=== PATIENT | female | born 2000 | race Caucasian/White ===

== ENCOUNTER 2024-11-19 10:14 | Emergency (ER) | payer OTHER, SELFPAY ==
[2024-11-19 10:19] VITALS: BP 138/92; PULSE 66; RESP 16; TEMP 36.5; O2SAT 100
--- OUTSIDE RECORDS SUMMARY | 2024-11-19 11:05 | XMS_ITS | Encounter Summary ---
Author Organization [facility] Address 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
--- OUTSIDE RECORDS SUMMARY | 2024-11-19 11:05 | XMS_ITS | Encounter Summary ---
Author Organization [facility] Address [address] [place] [address] Care Team Providers Care Attending Physician Name Role Phone Unavailable Primary Care Provider Unavailabl e Encounter Details Date Type Department Care Team (Late st Contact Info) Description 2000 Outpatient Historical [facility] [place] [address] [place] [address] Single liveborn, born in hospital, delivered by delivery (Primary Dx) Social History Tobacco Use Types Packs/Day Years Used Date Smoking Tobacco: Never Assessed Comments Unknown Sex and Gender Information Value Date Recorded Sex Assigned at Not on file Legal Sex Female 3:50 AM HOSPITAL 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
--- OUTSIDE RECORDS SUMMARY | 2024-11-19 11:05 | XMS_ITS | Encounter Summary ---
Author Organization [facility] Address 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
--- OUTSIDE RECORDS SUMMARY | 2024-11-19 11:05 | XMS_ITS | Encounter Summary ---
Author Organization [facility] Address [address] [place] [address] Care Team Providers Care Automation Software Engineer Name Role Phone Jil Solomon DO Primary Care Provider [phone] Encounter Details Date Type Department Care Team (Late st Contact Info) Description 08/30/2017 Ophth Exam [facility] Pediatrics - Ophthalmology [address] [place] [address] Gibran Beyer MD [address] [place] [address] Social History Tobacco Use Types Packs/Day Years Used Date Smoking Tobacco: Never Smokeless Tobacco: Never Alcohol Use Standard Drinks/Week Comments No 0 (1 standard drink = 0.6 oz pur e alcohol) Comments Unknown Sex and Gender Information Value Date Recorded Sex Assigned at Not on file Legal Sex Female 7:12 AM MANAGER PEDIATRIC Gender Identity Not on file Sexual Orientation Not on file documented as of this encounter Plan of Treatment Not on file documented as of this encounter Visit Diagnoses Not on filedocumented in this encounter Care Teams Automation Software Engineer Relationship Specialty Start Date End Date Jil Solomon DO PCP - General Pediatrics 07/14/13 documented as of this encounter
--- OUTSIDE RECORDS SUMMARY | 2024-11-19 11:05 | XMS_ITS | Encounter Summary ---
Author Organization [facility] Address [address] Attn: [place] [address] Care Team Providers Care Space Operations Officer Name Role Phone Unavailable Primary Care Provider Unavailabl e Encounter Details Date Type Department Care Team (Late st Contact Info) Description 2000 [place] [address] [place] [address] Sunil Baker MD NO ADDRESS ON FILE Single liveborn, born in hospital, delivered by delivery (Primary Dx) Social History Tobacco Use Types Packs/Day Years Used Date Smoking Tobacco: Never Assessed Comments Unknown Sex and Gender Information Value Date Recorded Sex Assigned at Not on file Legal Sex Female 3:50 AM 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
--- OUTSIDE RECORDS SUMMARY | 2024-11-19 11:05 | XMS_ITS | Encounter Summary ---
Author Organization [facility] Address [address] [place] [address] Care Team Providers Care Industrial Engineering Technologist Name Role Phone Unavailable Primary Care Provider Unavailabl e Encounter Details Date Type Department Care Team (Late st Contact Info) Description 01/30/2004 Outpatient Historical [facility] Pediatrics - 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
--- OUTSIDE RECORDS SUMMARY | 2024-11-19 11:05 | XMS_ITS | Encounter Summary ---
Author Organization [facility] Address 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
--- OUTSIDE RECORDS SUMMARY | 2024-11-19 11:05 | XMS_ITS | Encounter Summary ---
Author Organization [facility] Address [address] [place] [address] Care Team Providers Care Hydrate Thickener Operator Name Role Phone Unavailable Primary Care Provider Unavailabl e Encounter Details Date Type Department Care Team (Late st Contact Info) Description 2000 Outpatient Historical [facility] Kiersten Schultz MD [address] [place] [address] Routine infant or child health check (Primary Dx) Social History Tobacco Use Types Packs/Day Years Used Date Smoking Tobacco: Never Assessed Comments Unknown Sex and Gender Information Value Date Recorded Sex Assigned at Not on file 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
--- OUTSIDE RECORDS SUMMARY | 2024-11-19 11:05 | XMS_ITS | Encounter Summary ---
Author Organization [facility] Address 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
--- OUTSIDE RECORDS SUMMARY | 2024-11-19 11:05 | XMS_ITS | Encounter Summary ---
Author Organization [facility] Address [address] [place] [address] Care Team Providers Care Manager Voice Name Role Phone Unavailable Primary Care Provider Unavailabl e Encounter Details Date Type Department Care Team (Late st Contact Info) Description 03/21/2003 Outpatient Historical [facility] Pediatrics - [facility] [address] [address] Chip Morrison MD NO ADDRESS ON FILE Social History Tobacco Use Types Packs/Day Years Used Date Smoking Tobacco: Never Assessed Comments Unknown Sex and Gender Information Value Date Recorded Sex Assigned at Not on file Legal Sex Female 3:50 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
--- OUTSIDE RECORDS SUMMARY | 2024-11-19 11:05 | XMS_ITS | Encounter Summary ---
Author Organization [facility] Address 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
--- OUTSIDE RECORDS SUMMARY | 2024-11-19 11:05 | XMS_ITS | Encounter Summary ---
Author Organization [facility] Address 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
--- OUTSIDE RECORDS SUMMARY | 2024-11-19 11:05 | XMS_ITS | Clinical Summary ---
Author Organization [facility] Address [facility] [place] [address] Care Team Providers Care Tariff Expert Name Role Phone Unavailable Primary Care Provider Unavailabl e Social History Tobacco Use Types Packs/Day Years Used Date Smoking Tobacco: Never Assessed Comments Unknown Sex and Gender Information Value Date Recorded Sex Assigned at Not on file Legal Sex Female 5:08 PM CDT Gender Identity Not on file Sexual Orientation Not on file Plan of Treatment Health Maintenance Due Date Last Done Comments Cervical Cancer Screening Pa p Smear (Age 21 to 29) Every 3 Years 2000 Cervical Cancer Screening 2000 Annual Physical 2003 HPV Vaccines (1 - 3-dose series) 2015 Hepatitis C 2018 DTaP, Tdap and Td Vaccines ( 1 - Tdap) 2019 Hepatitis B Vaccines (1 of 3 - 19+ 3-dose series) 2019 COVID-19 Vaccine (2023-2 5 season) 2024 Meningococcal B Vaccine Aged Out No l onger eligible based on patient's age to complete this topic Meningococcal Vaccine Aged Out No radhika allen eligible based on patient's age to complete this topic Pneumococcal Vaccine: Pediat rics (0 to 5 Years) and At-Risk Patients (6 to 49 Years) Aged Out No longer eligible b ased on patient's age to complete this topic RSV Immunizations Under 20 Months Aged Out No longer eligible based on patient's age to complete this topic
--- OUTSIDE RECORDS SUMMARY | 2024-11-19 11:05 | XMS_ITS | Clinical Summary ---
Author Organization [facility] Address [address] [place] [address] Care Team Providers Care Building Serviceman Name Role Phone Unavailable Primary Care Provider Unavailabl e Social History Tobacco Use Types Packs/Day Years Used Date Smoking Tobacco: Never Assessed Comments Unknown Sex and Gender Information Value Date Recorded Sex Assigned at Not on file Legal Sex Female 2:07 PM NURSE SITTER Gender Identity Not on file Sexual Orientation Not on file Plan of Treatment Health Maintenance Due Date Last Done Comments Hepatitis C Virus (HCV) Screening 2000 Pap Smear 2021 Influenza Immunization (#1) 03/17/202401/2013, 04/20/2010, 05/22/2008 SARS-COV-2 Immunization ( season) 2024 Respiratory Syncytial Virus (RSV) Immunization (Adult) (1 - 1-dose 75+ series) 2075 Hepatitis B Immunization Completed 001, 2000, 2000 Pneumococcal Immunization Combined Completed 10/30/2001, 05/23/2001, 2000, Additional history exists DTaP/Tdap/Td Immunization Discontinued 2011, 06/10/2005, 08/29/2001, Additional history exists TdaP Immunization Completed 02/15/2012 Human Papillomavirus (HPV) Immunization Completed 05/23/2013, 03/13/2013, 02/15/2012 Meningococcal B Immunization Discontinued 09/06/2017 Meningococcal Immunization (ACWY) Completed 09/06/2017, 09/06/2017, 02/15/2012 Rotavirus Immunization Aged Out No lo nger eligible based on patient's age to complete this topic
--- OUTSIDE RECORDS SUMMARY | 2024-11-19 11:05 | XMS_ITS | Clinical Summary ---
Author Organization [facility] Address [address] [place] [address] Phone Care Team Providers Care Tanker Driver Name Role Phone Unavailable Primary Care Provider Unavailabl e Allergies No known active allergies Medications No known medications Social History Tobacco Use Types Packs/Day Years Used Date Smoking Tobacco: Never Smokeless Tobacco: Never Alcohol Use Standard Drinks/Week Comments No 0 (1 standard drink = 0.6 oz pur e alcohol) Comments No Sex and Gender Information Value Date Recorded Sex Assigned at Not on file Legal Sex Female 3:50 AM PULP GRINDER AND BLENDER Gender Identity Not on file Sexual Orientation Not on file Last Filed Vital Signs Vital Sign Reading Time Taken Comments Blood Pressure 101/59 06/14/2018 5:14 PM PULP GRINDER AND BLENDER Pulse - - Temperature 36.9 C (98.4 F) 06/14/2018 5:14 PM PULP GRINDER AND BLENDER Respiratory Rate 16 06/14/2018 5:14 PM PULP GRINDER AND BLENDER Oxygen Saturation 97% 06/14/2018 5:14 PM PULP GRINDER AND BLENDER Inhaled Oxygen Concentration - - Weight 74.8 kg (165 lb) 06/14/2018 1:28 PM PULP GRINDER AND BLENDER Height 157.5 cm (5' 2 ) 06/14/2018 1:28 PM PULP GRINDER AND BLENDER Body Mass Index 30.18 06/14/2018 1:28 PM PULP GRINDER AND BLENDER Plan of Treatment Health Maintenance Due Date Last Done Comments HPV VACCINES (1 - 3-dose series) 2015 DTAP/TDAP/TD VACCINES (1 - Tdap) 2019 HEPATITIS B VACCINES (1 of 3 - 19+ 3-dose series) 12/2018 CERVICAL CANCER SCREENING 2021 HPV/Cotest (21-29) 2021 PAP SMEAR 2021 INFLUENZA VACCINE (#1) 2024
--- OUTSIDE RECORDS SUMMARY | 2024-11-19 11:05 | XMS_ITS | Encounter Summary ---
Author Organization [facility] Address 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
--- OUTSIDE RECORDS SUMMARY | 2024-11-19 11:05 | XMS_ITS | Encounter Summary ---
Author Organization [facility] Address 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
--- OUTSIDE RECORDS SUMMARY | 2024-11-19 11:05 | XMS_ITS | Clinical Summary ---
Author Organization [facility] Address [address] [place] [address] Care Team Providers Care Rn Interventional Name Role Phone JuanitoJil Cee JACOB Primary Care Provider [phone] [facility],non-owned Affiliates and Associated Physician Practices is amultiple site organization consisting of ambulatory clinics and hospital sitesin [place], [place], [place] and [place]. This disclosure is being madepursuant to the Care Everywhere program and may not contain all information available regarding this patient. Last updated 18.[facility] iRewardChart Allergies No known active allergies Medications * Be aware that medications may not be up to date on this document. Alwaysverify current medications with the patient. ibuprofen (MOTRIN) 200 MG tablet Take 3 Tabs by mouth every 6 hours as needed for Pain or Fever 30 Tab 0 5 Active Additional Information Patient not taking.Reported on 12/07/2017 cetirizine (ZYRTEC) 10 MG tablet Take 1 Tab by mouth once daily 30 Tab 7 Active albuterol (PROVENTIL;VENT ANIYAH) (5 MG/ML) 0.5% nebulizer solution Inhale 1 mL by mouth 4 times daily as needed for Shortness of Breath or Wheezing 1 bottles 2 7 Active sertraline (ZOLOFT) 100 MG tablet Take 100 mg by mouth once daily Active hydrocortisone (HYTONE) 1 % ointment Apply to affected area 2 times daily as needed (eczema) . Do not use for longer than 5 days at a time. 25 g 8 Active triamcinolone acetonide (KENALOG) 0.1 % ointment Apply to affected area 3 times daily as needed for Itching (eczema) 15 g 8 Active albuterol HFA (PROAIR HFA) 108 (90 BASE) MCG/ACT inhaler Inhale 2 puffs by mouth every 4 hours as needed for Shortness of Breath, Wheezing or Cough 1 Inhaler 8 Active Active Problems Problem Noted Date Diagnosed Date Pelvic pain in female 12/07/2017 Acute appendicitis 12/07/2017 Social History Tobacco Use Types Packs/Day Years Used Date Smoking Tobacco: Never Smokeless Tobacco: Never Alcohol Use Standard Drinks/Week Comments No 0 (1 standard drink = 0.6 oz pur e alcohol) Comments No Sex and Gender Information Value Date Recorded Sex Assigned at Not on file Legal Sex Female 7:12 AM SYBASE DEVELOPER Gender Identity Not on file Sexual Orientation Not on file Last Filed Vital Signs Vital Sign Reading Time Taken Comments Blood Pressure 108/70 12/09/2017 8:15 AM CDT Pulse 60 12/09/2017 8:15 AM CDT Temperature 36.8 C (98.2 F) 12/09/2017 8:15 AM CDT Respiratory Rate 18 12/09/2017 8:43 AM CDT Oxygen Saturation 93% 12/09/2017 4:56 AM CDT Inhaled Oxygen Concentration 21% 12/09/2017 8 :43 AM CDT Weight 79.1 kg (174 lb 6.1 oz) 12/07/2017 9:10 P M CDT Height 159.4 cm (5' 2.76 ) 12/07/2017 9:10 PM CD T Body Mass Index 31.13 12/07/2017 9:10 PM CDT Plan of Treatment Health Maintenance Due Date Last Done Comments HIV SCREENING 2015 HPV VACCINE (1 - 3-dose series) 2015 HEPATITIS C SCREENING 04/17/2018 CHLAMYDIA/GONORRHEA SCREENING 12/07/2018 12/07/2017 DTAP/TDAP/TD VACCINES (1 - Tdap) 2019 HEPATITIS B VACCINE (1 of 3 - 19+ 3-dose series) 2019 COVID-19 VACCINE (1 - 2024-2 5 season) 2024 DEPRESSION SCREENING 07/17/2024 INFLUENZA VACCINE (Season Ended) 2025 ZOSTER VACCINE (1 of 2) 2050 HIB VACCINE Aged Out No longer eligi ble based on patient's age to complete this topic MENINGOCOCCAL (Group B) VACC INE SHARED DECISION-MAKING Aged Out No longer eligibl e based on patient's age to complete this topic MENINGOCOCCAL GROUPS A/C/Y/W VACCINE Aged Out No longer eligible b ased on patient's age to complete this topic PNEUMOCOCCAL VACCINE Aged Out No long er eligible based on patient's age to complete this topic Procedures Procedure Name Priority Date/Time Associated Diagnosis Comments CHLAMYDIA + GC AMPLIFIED PROBE STAT 12/07/2017 2:47 PM CDT from Last 3 Months or Most Recently Relevant to Health Maintenance Results * CHLAMYDIA + GC AMPLIFIED PROBE (12/07/2017 2:47 PM CDT) Chlamydia Amplified Probe Negative Negative 12/08/2017 9:43 AM CDT [facility] GC Amplified Probe Negative Negative 12/08/2017 9:43 AM CDT [facility] Microbiology ENTIRE ENDOCERVIX / Unknown Collection / Unknown 12/07/2017 2:47 PM CDT 12/07/2017 5:07 PM CDT Narrative [facility] - 12/08/2017 9:43 AM CDT Results based on detection/no detection of ribosomal RNA by amplified method. Johnny Broderick MD LAB - MICROBIOLOGY ORDERABLES Final Result [facility] [address] [place] [address], [facility] [phone] from Last 3 Months or Most Recently Relevant to Health Maintenance Insurance MEDICAID - OUT OF STATE [place] [facility] Advance Directives * Full Code (Latest Code Status on File) Date Activated Date Inactivated Comments 12/07/2017 8:46 PM 12/09/2017 12:54 PM Care Teams Rn Interventional Relationship Specialty Start Date End Date Jil Solomon DO PCP - General Pediatrics 07/14/13
--- OUTSIDE RECORDS SUMMARY | 2024-11-19 11:05 | XMS_ITS | Encounter Summary ---
Author Organization [facility] Address [address] [place] [address] Care Team Providers Care Strap Setter Name Role Phone Unavailable Primary Care Provider Unavailabl e Encounter Details Date Type Department Care Team (Late st Contact Info) Description 09/18/2001 Outpatient Historical [facility] - Medical [place] [address] [address] Chip Morrison MD NO ADDRESS ON FILE Social History Tobacco Use Types Packs/Day Years Used Date Smoking Tobacco: Never Assessed Comments Unknown Sex and Gender Information Value Date Recorded Sex Assigned at Not on file Legal Sex Female 3:50 AM RADIO JOURNALIST Gender Identity Not on file Sexual Orientation Not on file documented as of this encounter Plan of Treatment Not on file documented as of this encounter Visit Diagnoses Not on filedocumented in this encounter
[2024-11-19 11:18] LABS: BEDSIDEPREGUCG Positive (Negative)
[2024-11-19 11:33] LABS: Basophils Absolute Auto 0.1 K/mm3 (0.0-0.1); Basophils Percent Auto 0.4 % (0.2-1.2); Eosinophils Absolute Auto 0.1 K/mm3 (0-0.3); Eosinophils Percent Auto 1.1 % (0-4.4); Hematocrit 41.6 % (37.0-47.0); Hemoglobin 14.1 g/dL (12.0-15.0); Immature Granulocyte Absolute 0.06 K/mm3 (0.00-0.031); Immature Granulocyte Percent A 0.5 % (0-0.5); Lymphocytes Absolute Auto 2.45 K/mm3 (0.9-3.2); Lymphocytes Percent Auto 18.7 % (18.3-44.2); Mean Corpuscular HGB Conc 33.9 g/dl (32-36); Mean Corpuscular Hemoglobin 28.6 pg (26-34); Mean Corpuscular Volume 84.4 fl (80-100); Mean Platelet Volume 11.3 fl (7.4-10.4); Monocytes Absolute Auto 0.7 K/mm3 (0.1-0.6); Monocytes Percent Auto 5.6 % (2.6-8.5); Neutrophils Absolute Auto 9.7 K/mm3 (1.3-6.7); Neutrophils Percent Auto 73.7 % (45.5-73.1); Platelet Count Result 274 k/mm3 (150-375); Red Blood Count 4.93 M/mm3 (4.2-5.4); Red Cell Distribution Width 12.9 % (11.5-14.5); White Blood Count 13.1 K/mm3 (4.5-10.0)
[2024-11-19 11:34] LABS: Add Urine Microscopic? YES; Appearance Urine Cloudy (Clear); Bacteria Urine None Seen /hpf; Bilirubin Urine Negative (Negative); Blood Urine Negative (Negative); Color Urine Yellow (Yellow); Glucose Urine UA Negative (Negative); Ketones Urine 4+ mg/dL (Negative); Leukocyte Esterase Ur Negative LEU/UL (Negative); Nitrate Urine Negative (Negative); Non Pathogenic Casts 0-2; Protein Urine Trace mg/dL (Negative); RBC Urine 0-2 /hpf (0-2); Specific Grav Ur 1.024 (1.001-1.035); Squamous Epithelial Cell Urine None Seen /hpf (Few); WBC Urine 0-5 /hpf (0-3); pH Urine >=9.0 (5.0-9.0)
[2024-11-19 12:21] LABS: Alanine Aminotransferase 74 U/L (6-35); Albumin Level 4.7 g/dL (3.5-5.1); Alkaline Phosphatase 83 U/L (38-126); Anion Gap 11 mmol/L (4-12); Aspartate Amino Transferase 39 U/L (14-36); Bilirubin,Total 0.7 mg/dL (0.2-1.3); Blood Urea Nitrogen 6 mg/dL (7-17); Calcium 9.7 mg/dL (8.4-10.2); Carbon Dioxide 22 mmol/L (22-30); Chloride 103 mmol/L (98-107); Estimated CRCL calculation 148 ml/min; Estimated Glomerular Filt Rate > 60; Glucose 98 mg/dL (65-110); Lipase 69 U/L (23-300); Potassium 3.7 mmol/L (3.4-5.0); Sodium 136 mmol/L (137-145)
[2024-11-19] MEDS: LACTATED RINGERS 1,000 ML 999 ML IV CONT (12:27)
--- OUTSIDE RECORDS SUMMARY | 2024-11-19 12:38 | XMS_ITS | Clinical Summary ---
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
--- OUTSIDE RECORDS SUMMARY | 2024-11-19 12:38 | XMS_ITS | Encounter Summary ---
Author Organization [facility] Address [address] [place] [address] Care Team Providers Care Graphotype Operator Name Role Phone Unavailable Primary Care Provider Unavailabl e Encounter Details Date Type Department Care Team (Late st Contact Info) Description 2000 Outpatient Historical [facility] Kiersten Schultz MD [address] [place] [address] Routine infant or child health check (Primary Dx) Social History Tobacco Use Types Packs/Day Years Used Date Smoking Tobacco: Never Assessed Comments Unknown Sex and Gender Information Value Date Recorded Sex Assigned at Not on file Legal Sex Female 3:50 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
--- OUTSIDE RECORDS SUMMARY | 2024-11-19 12:38 | XMS_ITS | Encounter Summary ---
Author Organization [facility] Address [address] [place] [address] Care Team Providers Care Licensing Director Name Role Phone Jil Solomon DO Primary Care Provider [phone] Encounter Details Date Type Department Care Team (Late st Contact Info) Description 08/30/2017 Ophth Exam [facility] Pediatrics - Ophthalmology [address] [place] [address] Gibran Beyer MD [address] [place] [address] Social History Tobacco Use Types Packs/Day Years Used Date Smoking Tobacco: Never Smokeless Tobacco: Never Alcohol Use Standard Drinks/Week Comments No 0 (1 standard drink = 0.6 oz pur e alcohol) Comments Unknown Sex and Gender Information Value Date Recorded Sex Assigned at Not on file Legal Sex Female 7:12 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
--- OUTSIDE RECORDS SUMMARY | 2024-11-19 12:38 | XMS_ITS | Clinical Summary ---
Author Organization [facility] Address [address] [place] [address] Care Team Providers Care Ict Project Manager Name Role Phone JuanitoJil Cee JACOB Primary Care Provider [phone] Source Comments [facility],non-owned Affiliates and Associated Physician Practices is amultiple site organization consisting of ambulatory clinics and hospital sitesin [place], [place], [place] and [place]. This disclosure is being madepursuant to the Care Everywhere program and may not contain all information available regarding this patient. Last updated 18.[facility] Microarrays Allergies No known active allergies Medications * [...] on file Legal Sex Female 7:12 AM OPERATIONS GENERAL AGENT Gender Identity Not on file Sexual Orientation [...] Probe Negative Negative 12/08/2017 9:43 AM CDT [facility] GC Amplified Probe Negative Negative 12/08/2017 9:43 AM CDT [facility] Microbiology ENTIRE ENDOCERVIX / Unknown Collection / Unknown 12/07/2017 2:47 PM CDT 12/07/2017 5:07 PM CDT Narrative [facility] - 12/08/2017 9:43 AM CDT Results based on detection/no detection of ribosomal RNA by amplified method. Johnny Broderick MD LAB - MICROBIOLOGY ORDERABLES Final Result [facility] [address] [place] [address], [facility] [phone] from Last 3 Months or Most Recently Relevant to Health Maintenance Insurance MEDICAID - OUT OF STATE [place] [facility] Advance Directives * Full Code (Latest Code Status on File) Date Activated Date Inactivated Comments 12/07/2017 8:46 PM 12/09/2017 12:54 PM Care Teams Ict Project Manager Relationship Specialty Start Date End Date Jil Solomon DO PCP - General Pediatrics 07/14/13
--- OUTSIDE RECORDS SUMMARY | 2024-11-19 12:38 | XMS_ITS | Encounter Summary ---
Author Organization [facility] Address [address] [place] [address] Care Team Providers Care Bulk Plant Operator Name Role Phone Unavailable Primary Care Provider Unavailabl e Encounter Details Date Type Department Care Team (Late st Contact Info) Description 2000 Outpatient Historical [facility] [place] [address] [place] [address] Diaper or napkin rash (Primary Dx) Social History Tobacco Use Types Packs/Day Years Used Date Smoking Tobacco: Never Assessed Comments Unknown Sex and Gender Information Value Date Recorded Sex Assigned at Not on file Legal Sex Female 3:50 AM PUBLIC HEALTH TECHNOLOGIST Gender Identity Not on file Sexual Orientation Not on file documented as of this encounter Plan of Treatment Not on file documented as of this encounter Visit Diagnoses Diagnosis Diaper or napkin rash- Primary documented in this encounter
--- OUTSIDE RECORDS SUMMARY | 2024-11-19 12:38 | XMS_ITS | Encounter Summary ---
Author Organization [facility] Address [address] [place] [address] Care Team Providers Care Powder Cutting Operator Name Role Phone Unavailable Primary Care Provider Unavailabl e Encounter Details Date Type Department Care Team (Late st Contact Info) Description 03/21/2003 Outpatient Historical [facility] Pediatrics - [facility] [address] [address] [address] Chip Morrison MD NO ADDRESS ON FILE Social History Tobacco Use Types Packs/Day Years Used Date Smoking Tobacco: Never Assessed Comments Unknown Sex and Gender Information Value Date Recorded Sex Assigned at Not on file Legal Sex Female 3:50 AM GAMING WORKER Gender Identity Not on file Sexual Orientation Not on file documented as of this encounter Plan of Treatment Not on file documented as of this encounter Visit Diagnoses Not on filedocumented in this encounter
--- OUTSIDE RECORDS SUMMARY | 2024-11-19 12:38 | XMS_ITS | Encounter Summary ---
Author Organization [facility] Address [address] Attn: [place] [address] Care Team Providers Care Information Security Name Role Phone Unavailable Primary Care Provider Unavailabl e Encounter Details Date Type Department Care Team (Late st Contact Info) Description 2000 [place] [address] [place] [address] Sunil Baker MD NO ADDRESS ON FILE Single liveborn, born in hospital, delivered by delivery (Primary Dx) Social History Tobacco Use Types Packs/Day Years Used Date Smoking Tobacco: Never Assessed Comments Unknown Sex and Gender Information Value Date Recorded Sex Assigned at Not on file Legal Sex Female 3:50 AM LABOR GANG SUPERVISOR Gender Identity Not on file Sexual Orientation Not on file documented as of this encounter Plan of Treatment Not on file documented as of this encounter Visit Diagnoses Diagnosis Single liveborn, born in hospital, delivered by delivery- Primary documented in this encounter
--- OUTSIDE RECORDS SUMMARY | 2024-11-19 12:38 | XMS_ITS | Encounter Summary ---
Author Organization [facility] Address [address] [place] [address] Care Team Providers Care Student Accounts Coordinator Name Role Phone Unavailable Primary Care Provider Unavailabl e Encounter Details Date Type Department Care Team (Latest Contact Info) Description 03/21/2003 Outpatient Historical [facility] GLENDY Morrison, Chip Gutierrez MD NO ADDRESS ON FILE ROUTIN CHILD HEALTH EXAM (Primary Dx) Social History Tobacco Use Types Packs/Day Years Used Date Smoking Tobacco: Never Assessed Comments Unknown Sex and Gender Information Value Date Recorded Sex Assigned at Not on file Legal Sex Female 3:50 AM RETURNING OFFICER Gender Identity Not on file Sexual Orientation Not on file documented as of this encounter Plan of Treatment Not on file documented as of this encounter Visit Diagnoses Diagnosis Routine infant or child health check- Primary documented in this encounter
--- OUTSIDE RECORDS SUMMARY | 2024-11-19 12:38 | XMS_ITS | Encounter Summary ---
Author Organization [email or web address] Address [address] [place] [address] Care Team Providers Care Parking Enforcement Officer Name Role Phone Unavailable Primary Care Provider Unavailabl e Encounter Details Date Type Department Care Team (Latest Contact Info) Description 2000 Outpatient Historical [facility] [place] [address] [place] [address] Need for prophylactic vaccination and inoculation against other combinations of diseases (Primary Dx) Social History Tobacco Use Types Packs/Day Years Used Date Smoking Tobacco: Never Assessed Comments Unknown Sex and Gender Information Value Date Recorded Sex Assigned at Not on file Legal Sex Female 3:50 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
--- OUTSIDE RECORDS SUMMARY | 2024-11-19 12:38 | XMS_ITS | Encounter Summary ---
Author Organization [facility] Address 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
--- OUTSIDE RECORDS SUMMARY | 2024-11-19 12:38 | XMS_ITS | Encounter Summary ---
Author Organization [facility] Address [address] [place] [address] Care Team Providers Care Cotton Opener Name Role Phone Unavailable Primary Care Provider Unavailabl e Encounter Details Date Type Department Care Team (Late st Contact Info) Description 09/18/2001 Outpatient Historical [facility] Pediatrics - Medical [place] [address] [address] Chip Morrison MD NO ADDRESS ON FILE Social History Tobacco Use Types Packs/Day Years Used Date Smoking Tobacco: Never Assessed Comments Unknown Sex and Gender Information Value Date Recorded Sex Assigned at Not on file Legal Sex Female 3:50 AM COIL WINDER Gender Identity Not on file Sexual Orientation Not on file documented as of this encounter Plan of Treatment Not on file documented as of this encounter Visit Diagnoses Not on filedocumented in this encounter
--- OUTSIDE RECORDS SUMMARY | 2024-11-19 12:38 | XMS_ITS | Encounter Summary ---
Author Organization [facility] Address [address] [place] [address] Care Team Providers Care Pipe Line Repairer Name Role Phone Unavailable Primary Care Provider Unavailabl e Encounter Details Date Type Department Care Team (Late st Contact Info) Description 2000 Outpatient Historical [facility] Kiersten Schultz MD [address] [place] [address] Social History Tobacco Use Types Packs/Day Years Used Date Smoking Tobacco: Never Assessed Comments Unknown Sex and Gender Information Value Date Recorded Sex Assigned at Not on file Legal Sex Female 3:50 AM STOCKING INSPECTOR Gender Identity Not on file Sexual Orientation Not on file documented as of this encounter Plan of Treatment Not on file documented as of this encounter Visit Diagnoses Not on filedocumented in this encounter
--- OUTSIDE RECORDS SUMMARY | 2024-11-19 12:38 | XMS_ITS | Encounter Summary ---
Author Organization [facility] Address [address] [place] [address] Care Team Providers Care Film Coater Name Role Phone Unavailable Primary Care Provider Unavailabl e Encounter Details Date Type Department Care Team (Late st Contact Info) Description 10/30/2001 Outpatient Historical [facility] Pediatrics - Medical [place] [address] [address] Chip Morrison MD NO ADDRESS ON FILE Social History Tobacco Use Types Packs/Day Years Used Date Smoking Tobacco: Never Assessed Comments Unknown Sex and Gender Information Value Date Recorded Sex Assigned at Not on file Legal Sex Female 3:50 AM DISC PAD KNOCKOUT WORKER Gender Identity Not on file Sexual Orientation Not on file documented as of this encounter Plan of Treatment Not on file documented as of this encounter Visit Diagnoses Not on filedocumented in this encounter
--- OUTSIDE RECORDS SUMMARY | 2024-11-19 12:38 | XMS_ITS | Encounter Summary ---
Author Organization [email or web address] Address [address] [place] [address] Care Team Providers Care Zoning Administrator Name Role Phone Unavailable Primary Care Provider Unavailabl e Encounter Details Date Type Department Care Team (Latest Contact Info) Description 01/30/2004 Outpatient Historical [facility], [address] Chip Morrison MD NO ADDRESS ON FILE URIN TRACT INFECTION NOS (Primary Dx) Social History Tobacco Use Types Packs/Day Years Used Date Smoking Tobacco: Never Assessed Comments Unknown Sex and Gender Information Value Date Recorded Sex Assigned at Not on file Legal Sex Female 3:50 AM SUPERVISOR WHEEL SHOP Gender Identity Not on file Sexual Orientation Not on file documented as of this encounter Plan of Treatment Not on file documented as of this encounter Visit Diagnoses Diagnosis Urinary tract infection, site not specified- Primary documented in this encounter
--- OUTSIDE RECORDS SUMMARY | 2024-11-19 12:38 | XMS_ITS | Clinical Summary ---
Author Organization [facility] Address [address] [place] [address] Phone Care Team Providers Care Installation Specialist Name Role Phone Unavailable Primary Care Provider [...] on file Legal Sex Female 3:50 AM CONTACT LENS MANUFACTURER Gender Identity Not on file Sexual Orientation Not on file Last Filed Vital Signs Vital Sign Reading Time Taken Comments Blood Pressure 101/59 06/14/2018 5:14 PM CONTACT LENS MANUFACTURER Pulse - - Temperature 36.9 C (98.4 F) 06/14/2018 5:14 PM CONTACT LENS MANUFACTURER Respiratory Rate 16 06/14/2018 5:14 PM CONTACT LENS MANUFACTURER Oxygen Saturation 97% 06/14/2018 5:14 PM CONTACT LENS MANUFACTURER Inhaled Oxygen Concentration - - Weight 74.8 kg (165 lb) 06/14/2018 1:28 PM CONTACT LENS MANUFACTURER Height 157.5 cm (5' 2 ) 06/14/2018 1:28 PM CONTACT LENS MANUFACTURER Body Mass Index 30.18 06/14/2018 1:28 PM CONTACT LENS MANUFACTURER Plan of Treatment Health Maintenance Due Date Last Done Comments HPV VACCINES (1 - 3-dose series) 2015 DTAP/TDAP/TD VACCINES (1 - Tdap) 2019 HEPATITIS B VACCINES (1 of 3 - 19+ 3-dose series) 12/2018 CERVICAL CANCER SCREENING 2021 HPV/Cotest (21-29) 2021 PAP SMEAR 2021 INFLUENZA VACCINE (#1) 2024
--- OUTSIDE RECORDS SUMMARY | 2024-11-19 12:38 | XMS_ITS | Encounter Summary ---
Author Organization [facility] Address 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
--- OUTSIDE RECORDS SUMMARY | 2024-11-19 12:38 | XMS_ITS | Clinical Summary ---
Author Organization [facility] Address [address] [place] [address] Care Team Providers Care Dental Assistant Teacher Name Role Phone Unavailable Primary Care Provider [...]
--- OUTSIDE RECORDS SUMMARY | 2024-11-19 12:38 | XMS_ITS | Encounter Summary ---
Author Organization [facility] Address [address] [place] [address] Care Team Providers Care Senior Software Test Engineer Name Role Phone Unavailable Primary Care Provider Unavailabl e Encounter Details Date Type Department Care Team (Late st Contact Info) Description 01/30/2004 Outpatient Historical [facility] Pediatrics - [facility] [address] [address] Chip Morrison MD NO ADDRESS ON FILE Social History Tobacco Use Types Packs/Day Years Used Date Smoking Tobacco: Never Assessed Comments Unknown Sex and Gender Information Value Date Recorded Sex Assigned at Not on file Legal Sex Female 3:50 AM LAWN CARETAKER Gender Identity Not on file Sexual Orientation Not on file documented as of this encounter Plan of Treatment Not on file documented as of this encounter Visit Diagnoses Not on filedocumented in this encounter
--- OUTSIDE RECORDS SUMMARY | 2024-11-19 12:38 | XMS_ITS | Encounter Summary ---
Author Organization [facility] Address [address] [place] [address] Care Team Providers Care Applied Exercise Physiologist Name Role Phone Unavailable Primary Care Provider Unavailabl e Encounter Details Date Type Department Care Team (Late st Contact Info) Description 2000 Outpatient Historical [facility] [address] [place] [address] Single liveborn, born in hospital, delivered by delivery (Primary Dx) Social History Tobacco Use Types Packs/Day Years Used Date Smoking Tobacco: Never Assessed Comments Unknown Sex and Gender Information Value Date Recorded Sex Assigned at Not on file Legal Sex Female 3:50 AM HEALTH CARE SANITARY TECHNICIAN Gender Identity Not on file Sexual Orientation Not on file documented as of this encounter Plan of Treatment Not on file documented as of this encounter Visit Diagnoses Diagnosis Single liveborn, born in hospital, delivered by delivery- Primary documented in this encounter
--- NOTE | 2024-11-19 12:41 | ED_ITS ---
HPI - Nausea/Vomiting/Diarrhea General Chief complaint: Nausea/Vomiting/Diarrhea Stated complaint: N/V positive preg Time Seen by Provider: 11/19/24 11:57 Source: patient Mode of arrival: ambulatory Limitations: no limitations History of Present Illness HPI Narrative: This is a 24-year-old female, with no significant past medical history, , last menstrual period October 05 2024, who presents emergency department complaining of nausea and vomiting for the past week. She states she has been unable to keep anything down including water for the past 24 hours. She denies bleeding, abdominal pain, fevers or other associated symptoms. She denies vaginal bleeding or abnormal discharge throat does complain of increased urinary frequency. She has no other complaints at this time. Related Data Allergies Allergy/AdvReac Type Severity Reaction Status Date / Time No Known Allergies Allergy Verified 11/19/24 10:17 Review of Systems 2 Review of Systems: All systems reviewed & are unremarkable except as noted in HPI and below PMFSH Past Medical History Medical History No significant past medical history Surgical History Surgical History No significant past surgical history Social History Social History Smoking status: Former smoker Alcohol intake: former Substance use: former Substance use type: marijuana Exam 2 Narrative: GENERAL: Well-developed, well-nourished, and in no acute distress. HEAD: Normocephalic, atraumatic. EYES: PERRLA and EOMI. CHEST: Clear to auscultation. No respiratory distress. No wheezes rales or rhonchi HEART: Regular rate and rhythm. No murmur heard. Normal peripheral pulses. ABDOMEN: Soft, nontender, nondistended, normal active bowel sounds. No CVA tenderness to palpation EXTREMITIES: Normal range of motion. No edema. SKIN: Warm, dry, no rash. NEURO: Alert and oriented x3. No focal deficit. Moving all 4 limbs spontaneously PSYCH: Normal mood and affect. Course Course Emergency Course: 12:35 - Bedside ultrasound by me shows a single intrauterine . There appears to be cardiac activity, where I am unable to quantify it. CBC demonstrates white blood cell count elevation of 13 but is otherwise unremarkable. Chemistries demonstrate mild AST/ALT elevation of 39 and 74 respectively but is otherwise unremarkable. Beta hCG 29,797. Urinalysis demonstrates elevated pH of 9, consistent with urinary tract infection. Urine ketones 4+. Patient is O positive antibody screen negative. Will give nausea medications, IV fluids, including dextrose and repeat UA to evaluate ketones. 14:57 - After IV fluids, IV Benadryl and D5 half NS, the patient states she feels improved. She was able tolerate p.o. intake. Will discharge with antiemetics and Keflex for UTI. I advised the patient follow-up with her OB as scheduled and primary care doctor. I discussed the findings and recommendations with the patient. Discussed return and emergency precautions including signs/symptoms of acute abdomen and intractable vomiting. The patient voiced understanding and agreement with the plan. All questions answered to her satisfaction. Vital Signs Vital signs: Vital Signs Temperature 97.7 F 11/19/24 10:19 Pulse Rate 66 11/19/24 10:19 Respiratory Rate 16 11/19/24 10:19 Blood Pressure 138/92 H 11/19/24 10:19 Pulse Oximetry 100 11/19/24 10:19 Oxygen Delivery Room Air 11/19/24 10:19 Temperature 97.7 F 11/19/24 10:19 Pulse Rate 66 11/19/24 10:19 Respiratory Rate 16 11/19/24 10:19 Blood Pressure 138/92 H 11/19/24 10:19 Pulse Oximetry 100 11/19/24 10:19 Oxygen Delivery Room Air 11/19/24 10:19 MDM - Nausea/Vomiting/Diarrhea MDM Narrative Medical decision making narrative: Plan: Labs, IV fluids, antiemetics, test, reassess Differential Diagnosis Differential diagnosis: Likely dehydration and other (UTI, hyperemesis gravidarum, metabolic abnormality, other) Lab Data 11/19/24 11:13 11/19/24 11:13 Labs: Lab Results 11/19/24 11/19/24 Range/Units 11:13 11:14 WBC 13.1 H (4.5-10.0) K/mm3 RBC 4.93 (4.2-5.4) M/mm3 Hgb 14.1 (12.0-15.0) g/dL Hct 41.6 (37.0-47.0) % MCV 84.4 (80-100) fl MCH 28.6 (26-34) pg MCHC 33.9 (32-36) g/dl RDW 12.9 (11.5-14.5) % Plt Count 274 (150-375) k/mm3 MPV 11.3 H (7.4-10.4) fl Immature Gran % (Auto) 0.5 (0-0.5) % Neut % (Auto) 73.7 H (45.5-73.1) % Lymph % (Auto) 18.7 (18.3-44.2) % [place] % (Auto) 5.6 (2.6-8.5) % Eos % (Auto) 1.1 (0-4.4) % Baso % (Auto) 0.4 (0.2-1.2) % Lymph # (Auto) 2.45 (0.9-3.2) K/mm3 [place] # (Auto) 0.7 H (0.1-0.6) K/mm3 Eos # (Auto) 0.1 (0-0.3) K/mm3 Baso # (Auto) 0.1 (0.0-0.1) K/mm3 Abs Immat Gran (auto) 0.06 H (0.00-0.031) K/mm3 Absolute Neuts (auto) 9.7 H (1.3-6.7) K/mm3 Absolute Nucleated RBC 0.000 (0.0-0.012) K/mm3 Nucleated RBC % 0.0 (0.0-0.2) % Sodium 136 L (137-145) mmol/L Potassium 3.7 (3.4-5.0) mmol/L Chloride 103 (98-107) mmol/L Carbon Dioxide 22 (22-30) mmol/L Anion Gap 11 (4-12) mmol/L BUN 6 L (7-17) mg/dL Creatinine 0.51 L (0.7-1.0) mg/dL Estim Creat Clear Calc 148 ml/min Estimated GFR > 60 (59 - ) Glucose 98 (65-110) mg/dL Calcium 9.7 (8.4-10.2) mg/dL Total Bilirubin 0.7 (0.2-1.3) mg/dL AST 39 H (14-36) U/L ALT 74 H (6-35) U/L Alkaline Phosphatase 83 (38-126) U/L Total Protein 8.0 (6.3-8.2) g/dL Albumin 4.7 (3.5-5.1) g/dL Lipase 69 (23-300) U/L Beta HCG, Quant 30524.00 mIU/ML Urine Color Yellow (Yellow) Urine Appearance Cloudy H (Clear) Urine pH >=9.0 H (5.0-9.0) Ur Specific [place] 1.024 (1.001-1.035) Urine Protein Trace (Negative) mg/dL Urine Glucose (UA) Negative (Negative) mg/dL Urine Ketones 4+ H (Negative) mg/dL Ur Blood (Man) Negative (Negative) Urine Nitrate Negative (Negative) Urine Bilirubin Negative (Negative) Urine Urobilinogen 1.0 (<2.0) mg/dL Leukocyte Esterase Rfl Negative (Negative) JUAN DAVID/UL Urine RBC 0-2 (0-2) /hpf Urine WBC 0-5 (0-3) /hpf Ur Squamous Epith Cells None seen (Few) /hpf Urine Bacteria None seen /hpf Urine Casts 0-2 POC Urine HCG, Qual Positive (Negative) Blood Type O Positive Antibody Screen Negative Screen Not Reportable Baby's Blood Type Not Reportable Baby's KARRI Not Reportable Doses of RhIg Required 0 Discharge Plan Discharge Clinical Impression: Nausea and vomiting Qualifiers: Vomiting type: unspecified Qualified Code(s): R11.2 - Nausea with vomiting, unspecified UTI (urinary tract infection) Qualifiers: Urinary tract infection type: acute cystitis Hematuria presence: without hematuria Qualified Code(s): N30.00 - Acute cystitis without hematuria Patient Disposition: Home Condition: Stable Instructions: Antibiotic Form, Nausea and Vomiting in (ED), Urinary Tract Infection in (ED) Additional Instructions: You were seen in the emergency department. Your urinalysis showed changes consistent with urinary tract infection. Your given IV fluids, nausea medications (Benadryl) improvement. I recommend nausea medications and antibiotics as well as follow-up with your OB. If you develop severe abdominal pain, abdominal pain with fevers, persistent vomiting, or if you have other emergent concerns for life, limb, or eyesight, return to the emergency department. Patient Language: Indonesian Prescriptions: New cephalexin 500 mg tablet 500 mg PO Q12H 7 Days Qty: 14 0RF pyridoxine (vitamin B6) 25 mg tablet 25 mg PO Q6-8H PRN (Reason: nausea and vomiting) Qty: 20 0RF dimenhydrinate 50 mg tablet 50 mg PO Q4-6H PRN (Reason: nausea and vomiting) Qty: 20 0RF Follow-up/Referrals: Fortino,Luis Armando Valero MD [Primary Care Provider] - 2 Weeks Time of Disposition: 15:00
[2024-11-19] MEDS: diphenhydrAMINE HCl INJ 50 MG/ML VIAL 25 MG IV PUSH (12:49)
[2024-11-19] MEDS: DEXTROSE 5%/0.45% SOD CHL 1,000 ML 100 ML IV CONT (13:22)
== END 2024-11-19 15:15 | disposition home or self-care (01) ==
PROVIDERS: Emergency Medicine; Emergency Provider Preventive Medicine Aerospace Medicine; PCP Internal Medicine Gastroenterology
DX: N30.00 Acute cystitis without hematuria (principal); R11.2 Nausea with vomiting, unspecified
CPT/HCPCS: 36415; 80053; 81001; 81025; 83690; 84702; 85025; 85461; 86850; 86900; 86901; 96361; 96374; 99284; J1200; J7120

== ENCOUNTER 2024-11-21 14:04 | Emergency (ER) | payer OTHER, SELFPAY ==
--- OUTSIDE RECORDS SUMMARY | 2024-11-21 14:07 | XMS_ITS | Encounter Summary ---
Author Organization [facility] Address [address] [place] [address] Care Team Providers Care Business Systems Technician Name Role Phone Unavailable Primary Care Provider Unavailabl e Encounter Details Date Type Department Care Team (Late st Contact Info) Description 2000 Outpatient Historical [facility] [place] [address] [place] [address] Single liveborn, born in hospital, delivered by delivery (Primary Dx) Social History Tobacco Use Types Packs/Day Years Used Date Smoking Tobacco: Never Assessed Comments Unknown Sex and Gender Information Value Date Recorded Sex Assigned at Not on file Legal Sex Female 3:50 AM DIRECTOR HEART Gender Identity Not on file Sexual Orientation Not on file documented as of this encounter Plan of Treatment Not on file documented as of this encounter Visit Diagnoses Diagnosis Single liveborn, born in hospital, delivered by delivery- Primary documented in this encounter
--- OUTSIDE RECORDS SUMMARY | 2024-11-21 14:07 | XMS_ITS | Encounter Summary ---
Author Organization [facility] Address [address] [place] [address] Care Team Providers Care Flat Knitter Name Role Phone Unavailable Primary Care Provider Unavailabl e Encounter Details Date Type Department Care Team (Latest Contact Info) Description 10/30/2001 Outpatient Historical HIS [facility] GLENDY Morrison, Chip Gutierrez MD NO ADDRESS ON FILE SCREENING-CONTAMINAT ION NEC (Primary Dx) Social History Tobacco Use Types Packs/Day Years Used Date Smoking Tobacco: Never Assessed Comments Unknown Sex and Gender Information Value Date Recorded Sex Assigned at Not on file Legal Sex Female 3:50 AM GIVER Gender Identity Not on file Sexual Orientation Not on file documented as of this encounter Plan of Treatment Not on file documented as of this encounter Visit Diagnoses Diagnosis Screening for chemical poisoning and other contamination- Primary documented in this encounter
--- OUTSIDE RECORDS SUMMARY | 2024-11-21 14:07 | XMS_ITS | Encounter Summary ---
Author Organization [facility] Address [address] [place] [address] Care Team Providers Care Boring Mill Set Up Operator Vertical Name Role Phone Unavailable Primary Care Provider Unavailabl e Encounter Details Date Type Department Care Team (Late st Contact Info) Description 09/18/2001 Outpatient Historical [facility] Pediatrics - [facility] [place] [address] [address] Chip Morrison MD NO ADDRESS ON FILE Social History Tobacco Use Types Packs/Day Years Used Date Smoking Tobacco: Never Assessed Comments Unknown Sex and Gender Information Value Date Recorded Sex Assigned at Not on file Legal Sex Female 3:50 AM CLOTH DYER Gender Identity Not on file Sexual Orientation Not on file documented as of this encounter Plan of Treatment Not on file documented as of this encounter Visit Diagnoses Not on filedocumented in this encounter
--- OUTSIDE RECORDS SUMMARY | 2024-11-21 14:07 | XMS_ITS | Encounter Summary ---
Author Organization [facility] Address [address] [place] [address] Care Team Providers Care Hooker Inspector Name Role Phone Unavailable Primary Care Provider Unavailabl e Encounter Details Date Type Department Care Team (Late st Contact Info) Description 01/30/2004 Outpatient Historical [facility] Pediatrics - [facility] [address] [address] Chip Morrison MD NO ADDRESS ON FILE Social History Tobacco Use Types Packs/Day Years Used Date Smoking Tobacco: Never Assessed Comments Unknown Sex and Gender Information Value Date Recorded Sex Assigned at Not on file Legal Sex Female 3:50 AM RN TELEPHONIC Gender Identity Not on file Sexual Orientation Not on file documented as of this encounter Plan of Treatment Not on file documented as of this encounter Visit Diagnoses Not on filedocumented in this encounter
--- OUTSIDE RECORDS SUMMARY | 2024-11-21 14:07 | XMS_ITS | Encounter Summary ---
Author Organization [facility] Address [address] [place] [address] Care Team Providers Care Project Controller Name Role Phone Unavailable Primary Care Provider Unavailabl e Encounter Details Date Type Department Care Team (Late st Contact Info) Description 2000 Outpatient Historical [facility] Kiersten Schultz MD [address] [place] [address] Social History Tobacco Use Types Packs/Day Years Used Date Smoking Tobacco: Never Assessed Comments Unknown Sex and Gender Information Value Date Recorded Sex Assigned at Not on file Legal Sex Female 3:50 AM ABORIGINAL CEREMONIAL CELEBRANT Gender Identity Not on file Sexual Orientation Not on file documented as of this encounter Plan of Treatment Not on file documented as of this encounter Visit Diagnoses Not on filedocumented in this encounter
--- OUTSIDE RECORDS SUMMARY | 2024-11-21 14:07 | XMS_ITS | Clinical Summary ---
Author Organization [facility] Address [address] [place] [address] Phone Care Team Providers Care Demand Planning Manager Name Role Phone Unavailable Primary Care Provider [...] on file Legal Sex Female 3:50 AM WEB OPERATIONS LEAD Gender Identity Not on file Sexual Orientation Not on file Last Filed Vital Signs Vital Sign Reading Time Taken Comments Blood Pressure 101/59 06/14/2018 5:14 PM WEB OPERATIONS LEAD Pulse - - Temperature 36.9 C (98.4 F) 06/14/2018 5:14 PM WEB OPERATIONS LEAD Respiratory Rate 16 06/14/2018 5:14 PM WEB OPERATIONS LEAD Oxygen Saturation 97% 06/14/2018 5:14 PM WEB OPERATIONS LEAD Inhaled Oxygen Concentration - - Weight 74.8 kg (165 lb) 06/14/2018 1:28 PM WEB OPERATIONS LEAD Height 157.5 cm (5' 2 ) 06/14/2018 1:28 PM WEB OPERATIONS LEAD Body Mass Index 30.18 06/14/2018 1:28 PM WEB OPERATIONS LEAD Plan of Treatment Health Maintenance Due Date Last Done Comments HPV VACCINES (1 - 3-dose series) 2015 DTAP/TDAP/TD VACCINES (1 - Tdap) 2019 HEPATITIS B VACCINES (1 of 3 - 19+ 3-dose series) 12/2018 CERVICAL CANCER SCREENING 2021 HPV/Cotest (21-29) 2021 PAP SMEAR 2021 INFLUENZA VACCINE (#1) 2024
--- OUTSIDE RECORDS SUMMARY | 2024-11-21 14:07 | XMS_ITS | Encounter Summary ---
Author Organization [facility] Address [address] [place] [address] Care Team Providers Care Digital Media Manager Name Role Phone Unavailable Primary Care Provider Unavailabl e Encounter Details Date Type Department Care Team (Latest Contact Info) Description 03/21/2003 Outpatient Historical HIS [facility] GLENDY Morrison, Chip Gutierrez MD NO ADDRESS ON FILE ROUTIN CHILD HEALTH EXAM (Primary Dx) Social History Tobacco Use Types Packs/Day Years Used Date Smoking Tobacco: Never Assessed Comments Unknown Sex and Gender Information Value Date Recorded Sex Assigned at Not on file Legal Sex Female 3:50 AM VIRTUALIZATION ARCHITECT Gender Identity Not on file Sexual Orientation Not on file documented as of this encounter Plan of Treatment Not on file documented as of this encounter Visit Diagnoses Diagnosis Routine infant or child health check- Primary documented in this encounter
--- OUTSIDE RECORDS SUMMARY | 2024-11-21 14:07 | XMS_ITS | Encounter Summary ---
Author Organization [facility] Address [address] [place] [address] Care Team Providers Care Farmworker Brooder Farm Name Role Phone Unavailable Primary Care Provider Unavailabl e Encounter Details Date Type Department Care Team (Late st Contact Info) Description 10/30/2001 Outpatient Historical [facility] Pediatrics - Medical [place] [address] [address] Chip Morrison MD NO ADDRESS ON FILE Social History Tobacco Use Types Packs/Day Years Used Date Smoking Tobacco: Never Assessed Comments Unknown Sex and Gender Information Value Date Recorded Sex Assigned at Not on file Legal Sex Female 3:50 AM CATHODE WASHER Gender Identity Not on file Sexual Orientation Not on file documented as of this encounter Plan of Treatment Not on file documented as of this encounter Visit Diagnoses Not on filedocumented in this encounter
--- OUTSIDE RECORDS SUMMARY | 2024-11-21 14:07 | XMS_ITS | Clinical Summary ---
Author Organization [facility] Address [address] [place] [address] Care Team Providers Care Adjunct History Instructor Name Role Phone JuanitoJil Cee JACOB Primary Care Provider [phone] Source Comments [facility],non-owned Affiliates and Associated Physician Practices is amultiple site organization consisting of ambulatory clinics and hospital sitesin [place], [place], [place] and [place]. This disclosure is being madepursuant to the Care Everywhere program and may not contain all information available regarding this patient. Last updated 18.[facility] [place] Allergies No known active allergies Medications * [...] on file Legal Sex Female 7:12 AM STAMPING DIE MAKER Gender Identity Not on file Sexual Orientation [...] Probe Negative Negative 12/08/2017 9:43 AM CDT [facility] GC Amplified Probe Negative Negative 12/08/2017 9:43 AM CDT [facility] Microbiology ENTIRE ENDOCERVIX / Unknown Collection / Unknown 12/07/2017 2:47 PM CDT 12/07/2017 5:07 PM CDT Narrative [facility] - 12/08/2017 9:43 AM CDT Results based on detection/no detection of ribosomal RNA by amplified method. Johnny Broderick MD LAB - MICROBIOLOGY ORDERABLES Final Result [facility] [address] [place] [address], [facility] [phone] from Last 3 Months or Most Recently Relevant to Health Maintenance Insurance MEDICAID - OUT OF STATE [place] [facility] Advance Directives * Full Code (Latest Code Status on File) Date Activated Date Inactivated Comments 12/07/2017 8:46 PM 12/09/2017 12:54 PM Care Teams Adjunct History Instructor Relationship Specialty Start Date End Date Jil Solomon DO PCP - General Pediatrics 07/14/13
--- OUTSIDE RECORDS SUMMARY | 2024-11-21 14:07 | XMS_ITS | Encounter Summary ---
Author Organization [facility] Address [address] [place] [address] Care Team Providers Care Senior Stock Plan Administrator Name Role Phone Unavailable Primary Care Provider Unavailabl e Encounter Details Date Type Department Care Team (Late st Contact Info) Description 2000 Outpatient Historical [facility] Kiersten Schultz MD [address] [place] [address] Routine infant or child health check (Primary Dx) Social History Tobacco Use Types Packs/Day Years Used Date Smoking Tobacco: Never Assessed Comments Unknown Sex and Gender Information Value Date Recorded Sex Assigned at Not on file Legal Sex Female 3:50 AM IS SUPPORT ANALYST Gender Identity Not on file Sexual Orientation Not on file documented as of this encounter Plan of Treatment Not on file documented as of this encounter Visit Diagnoses Diagnosis Routine infant or child health check- Primary documented in this encounter
--- OUTSIDE RECORDS SUMMARY | 2024-11-21 14:07 | XMS_ITS | Encounter Summary ---
Author Organization [facility] Address [address] [place] [address] Care Team Providers Care Office Nurse Practitioner Name Role Phone Unavailable Primary Care Provider Unavailabl e Encounter Details Date Type Department Care Team (Latest Contact Info) Description 01/30/2004 Outpatient Historical [facility], [address] Chip Morrison MD NO ADDRESS ON FILE URIN TRACT INFECTION NOS (Primary Dx) Social History Tobacco Use Types Packs/Day Years Used Date Smoking Tobacco: Never Assessed Comments Unknown Sex and Gender Information Value Date Recorded Sex Assigned at Not on file Legal Sex Female 3:50 AM FIRE FIGHTER AIRPORT Gender Identity Not on file Sexual Orientation Not on file documented as of this encounter Plan of Treatment Not on file documented as of this encounter Visit Diagnoses Diagnosis Urinary tract infection, site not specified- Primary documented in this encounter
--- OUTSIDE RECORDS SUMMARY | 2024-11-21 14:07 | XMS_ITS | Encounter Summary ---
Author Organization [facility] Address [address] [place] [address] Care Team Providers Care Paster Hat Lining Name Role Phone Unavailable Primary Care Provider Unavailabl e Encounter Details Date Type Department Care Team (Latest Contact Info) Description 2000 Outpatient Historical [facility] [place] [address] [place] [address] Need for prophylactic vaccination and inoculation against other combinations of diseases (Primary Dx) Social History Tobacco Use Types Packs/Day Years Used Date Smoking Tobacco: Never Assessed Comments Unknown Sex and Gender Information Value Date Recorded Sex Assigned at Not on file Legal Sex Female 3:50 AM RIB KNITTER Gender Identity Not on file Sexual Orientation Not on file documented as of this encounter Plan of Treatment Not on file documented as of this encounter Visit Diagnoses Diagnosis Need for prophylactic vaccination and inoculation against other combinations of diseases- Primary documented in this encounter
--- OUTSIDE RECORDS SUMMARY | 2024-11-21 14:07 | XMS_ITS | Clinical Summary ---
Author Organization [facility] Address [address] [facility] [facility] [place] [address] Care Team Providers Care Bilingual Operator Name Role Phone Unavailable Primary Care [...]
--- OUTSIDE RECORDS SUMMARY | 2024-11-21 14:07 | XMS_ITS | Encounter Summary ---
Author Organization [facility] Address [address] [place] [address] Care Team Providers Care Client Solutions Manager Name Role Phone Unavailable Primary Care Provider Unavailabl e Encounter Details Date Type Department Care Team (Late st Contact Info) Description 2000 Outpatient Historical [facility] [address] [place] [address] Diaper or napkin rash (Primary Dx) Social History Tobacco Use Types Packs/Day Years Used Date Smoking Tobacco: Never Assessed Comments Unknown Sex and Gender Information Value Date Recorded Sex Assigned at Not on file Legal Sex Female 3:50 AM EDGE STRIPPER Gender Identity Not on file Sexual Orientation Not on file documented as of this encounter Plan of Treatment Not on file documented as of this encounter Visit Diagnoses Diagnosis Diaper or napkin rash- Primary documented in this encounter
--- OUTSIDE RECORDS SUMMARY | 2024-11-21 14:07 | XMS_ITS | Encounter Summary ---
Author Organization [facility] Address [address] [place] [address] Care Team Providers Care Dust Operator Name Role Phone Unavailable Primary Care Provider Unavailabl e Encounter Details Date Type Department Care Team (Late st Contact Info) Description 03/21/[address] [facility] Pediatrics - [facility] [address] [address] Chip Morrison MD NO ADDRESS ON FILE Social History Tobacco Use Types Packs/Day Years Used Date Smoking Tobacco: Never Assessed Comments Unknown Sex and Gender Information Value Date Recorded Sex Assigned at Not on file Legal Sex Female 3:50 AM DIGITIZER Gender Identity Not on file Sexual Orientation Not on file documented as of this encounter Plan of Treatment Not on file documented as of this encounter Visit Diagnoses Not on filedocumented in this encounter
--- OUTSIDE RECORDS SUMMARY | 2024-11-21 14:07 | XMS_ITS | Encounter Summary ---
Author Organization [facility] Address [address] [facility] Attn: [place] [address] Care Team Providers Care Embedded Developer Name Role Phone Unavailable Primary Care Provider Unavailabl e Encounter Details Date Type Department Care Team (Late st Contact Info) Description 2000 Inpatient [place] [address] [place] [address] Sunil Baker MD NO ADDRESS ON FILE Single liveborn, born in hospital, delivered by delivery (Primary Dx) Social History Tobacco Use Types Packs/Day Years Used Date Smoking Tobacco: Never Assessed Comments Unknown Sex and Gender Information Value Date Recorded Sex Assigned at Not on file Legal Sex Female 3:50 AM ANVIL WORKER Gender Identity Not on file Sexual Orientation Not on file documented as of this encounter Plan of Treatment Not on file documented as of this encounter Visit Diagnoses Diagnosis Single liveborn, born in hospital, delivered by delivery- Primary documented in this encounter
--- OUTSIDE RECORDS SUMMARY | 2024-11-21 14:08 | XMS_ITS | Clinical Summary ---
Author Organization [facility] Address [address] [place] [address] Care Team Providers Care Modeling Agency Manager Name Role Phone Unavailable Primary Care Provider Unavailabl e Social History Tobacco Use Types Packs/Day Years Used Date Smoking Tobacco: Never Assessed Comments Unknown Sex and Gender Information Value Date Recorded Sex Assigned at Not on file Legal Sex Female 2:07 PM FLOOR INSTALLATION MECHANIC Gender Identity Not on file Sexual Orientation [...]
--- OUTSIDE RECORDS SUMMARY | 2024-11-21 14:08 | XMS_ITS | Encounter Summary ---
Author Organization [facility] Address [address] [place] [address] Care Team Providers Care Coffee Taster Name Role Phone Jil Solomon DO Primary Care Provider [phone] Encounter Details Date Type Department Care Team (Late st Contact Info) Description 08/30/2017 Ophth Exam [facility] Pediatrics - Ophthalmology [address] [place] [address] Gibran Beyer MD [address] [place] [address] Social History Tobacco Use Types Packs/Day Years Used Date Smoking Tobacco: Never Smokeless Tobacco: Never Alcohol Use Standard Drinks/Week Comments No 0 (1 standard drink = 0.6 oz pur e alcohol) Comments Unknown Sex and Gender Information Value Date Recorded Sex Assigned at Not on file Legal Sex Female 7:12 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
--- OUTSIDE RECORDS SUMMARY | 2024-11-21 14:08 | XMS_ITS | Encounter Summary ---
Author Organization [facility] Address 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
[2024-11-21 14:17] VITALS: BP 135/82; PULSE 97; RESP 16; TEMP 36.9; O2SAT 98
--- OUTSIDE RECORDS SUMMARY | 2024-11-21 14:36 | XMS_ITS | Clinical Summary ---
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
--- OUTSIDE RECORDS SUMMARY | 2024-11-21 14:36 | XMS_ITS | Clinical Summary ---
Author Organization [facility] Address [address] [place] [address] Phone Care Team Providers Care Spare Hand Name Role Phone Unavailable Primary Care Provider [...] on file Legal Sex Female 3:50 AM CODER Gender Identity Not on file Sexual Orientation Not on file Last Filed Vital Signs Vital Sign Reading Time Taken Comments Blood Pressure 101/59 06/14/2018 5:14 PM CODER Pulse - - Temperature 36.9 C (98.4 F) 06/14/2018 5:14 PM CODER Respiratory Rate 16 06/14/2018 5:14 PM CODER Oxygen Saturation 97% 06/14/2018 5:14 PM CODER Inhaled Oxygen Concentration - - Weight 74.8 kg (165 lb) 06/14/2018 1:28 PM CODER Height 157.5 cm (5' 2 ) 06/14/2018 1:28 PM CODER Body Mass Index 30.18 06/14/2018 1:28 PM CODER Plan of Treatment Health Maintenance Due Date Last Done Comments HPV VACCINES (1 - 3-dose series) 2015 DTAP/TDAP/TD VACCINES (1 - Tdap) 2019 HEPATITIS B VACCINES (1 of 3 - 19+ 3-dose series) 12/2018 CERVICAL CANCER SCREENING 2021 HPV/Cotest (21-29) 2021 PAP SMEAR 2021 INFLUENZA VACCINE (#1) 2024
--- OUTSIDE RECORDS SUMMARY | 2024-11-21 14:36 | XMS_ITS | Encounter Summary ---
Author Organization [facility] Address [address] [place] [address] Care Team Providers Care Cook House Supervisor Name Role Phone Unavailable Primary Care Provider Unavailabl e Encounter Details Date Type Department Care Team (Latest Contact Info) Description 2000 Outpatient Historical [facility] [place] [address] [place] [address] Need for prophylactic vaccination and inoculation against other combinations of diseases (Primary Dx) Social History Tobacco Use Types Packs/Day Years Used Date Smoking Tobacco: Never Assessed Comments Unknown Sex and Gender Information Value Date Recorded Sex Assigned at Not on file 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
--- OUTSIDE RECORDS SUMMARY | 2024-11-21 14:36 | XMS_ITS | Encounter Summary ---
Author Organization [facility] Address 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
--- OUTSIDE RECORDS SUMMARY | 2024-11-21 14:36 | XMS_ITS | Encounter Summary ---
Author Organization [facility] Address [address] [place] [address] Care Team Providers Care Plaster Applicator Name Role Phone Jil Solomon DO Primary Care Provider [phone] Encounter Details Date Type Department Care Team (Late st Contact Info) Description 08/30/2017 Ophth Exam [facility] Pediatrics - Ophthalmology [address] [place] [address] Gibran Beyer MD [address] [place] [address] Social History Tobacco Use Types Packs/Day Years Used Date Smoking Tobacco: Never Smokeless Tobacco: Never Alcohol Use Standard Drinks/Week Comments No 0 (1 standard drink = 0.6 oz pur e alcohol) Comments Unknown Sex and Gender Information Value Date Recorded Sex Assigned at Not on file Legal Sex Female 7:12 AM CHIP MUCKER Gender Identity Not on file Sexual Orientation Not on file documented as of this encounter Plan of Treatment Not on file documented as of this encounter Visit Diagnoses Not on filedocumented in this encounter Care Teams Plaster Applicator Relationship Specialty Start Date End Date Jil Solomon DO PCP - General Pediatrics 07/14/13 documented as of this encounter
--- OUTSIDE RECORDS SUMMARY | 2024-11-21 14:36 | XMS_ITS | Encounter Summary ---
Author Organization [facility] Address [address] [place] [address] Care Team Providers Care Insurance Writer Name Role Phone Unavailable Primary Care Provider Unavailabl e Encounter Details Date Type Department Care Team (Late st Contact Info) Description 01/30/2004 Outpatient Historical [facility] Pediatrics - [facility] [address] [facility] [address] [address] Chip Morrison MD NO ADDRESS ON FILE Social History Tobacco Use Types Packs/Day Years Used Date Smoking Tobacco: Never Assessed Comments Unknown Sex and Gender Information Value Date Recorded Sex Assigned at Not on file 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
--- OUTSIDE RECORDS SUMMARY | 2024-11-21 14:36 | XMS_ITS | Clinical Summary ---
Author Organization [facility] Address [address] [place] [address] Care Team Providers Care Acura Sales Consultant Name Role Phone JuanitoJil Cee JACOB Primary Care Provider [phone] Source Comments [facility],non-owned Affiliates and Associated Physician Practices is amultiple site organization consisting of ambulatory clinics and hospital sitesin [place], [place], [place] and [place]. This disclosure is being madepursuant to the Care Everywhere program and may not contain all information available regarding this patient. Last updated 18.[facility] Allergies No known active allergies Medications * [...] on file Legal Sex Female 7:12 AM BONDING AGENT Gender Identity Not on file Sexual [...] Probe Negative Negative 12/08/2017 9:43 AM CDT [facility] GC Amplified Probe Negative Negative 12/08/2017 9:43 AM CDT [facility] Microbiology ENTIRE ENDOCERVIX / Unknown Collection / Unknown 12/07/2017 2:47 PM CDT 12/07/2017 5:07 PM CDT Narrative [facility] - 12/08/2017 9:43 AM CDT Results based on detection/no detection of ribosomal RNA by amplified method. Johnny Broderick MD LAB - MICROBIOLOGY ORDERABLES Final Result [facility] [address] [place] [address], [facility] [phone] from Last 3 Months or Most Recently Relevant to Health Maintenance Insurance MEDICAID - OUT OF STATE [place] [facility] Advance Directives * Full Code (Latest Code Status on File) Date Activated Date Inactivated Comments 12/07/2017 8:46 PM 12/09/2017 12:54 PM Care Teams Acura Sales Consultant Relationship Specialty Start Date End Date Jil Solomon DO PCP - General Pediatrics 07/14/13
--- OUTSIDE RECORDS SUMMARY | 2024-11-21 14:36 | XMS_ITS | Clinical Summary ---
Author Organization [facility] Address [facility] [place] [address] Care Team Providers Care Dry Cell Battery Assembler Name Role Phone Unavailable Primary Care Provider [...]
--- OUTSIDE RECORDS SUMMARY | 2024-11-21 14:36 | XMS_ITS | Encounter Summary ---
Author Organization [facility] Address [address] [place] [address] Care Team Providers Care Eligibility Examiner Name Role Phone Unavailable Primary Care Provider Unavailabl e Encounter Details Date Type Department Care Team (Late st Contact Info) Description 10/30/2001 Outpatient Historical [facility] Pediatrics - [facility] [place] [address] [address] Chip Morrison MD NO ADDRESS ON FILE Social History Tobacco Use Types Packs/Day Years Used Date Smoking Tobacco: Never Assessed Comments Unknown Sex and Gender Information Value Date Recorded Sex Assigned at Not on file Legal Sex Female 3:50 AM STRAW BOSS Gender Identity Not on file Sexual Orientation Not on file documented as of this encounter Plan of Treatment Not on file documented as of this encounter Visit Diagnoses Not on filedocumented in this encounter
--- OUTSIDE RECORDS SUMMARY | 2024-11-21 14:36 | XMS_ITS | Encounter Summary ---
Author Organization [facility] Address [address] [place] [address] Care Team Providers Care Medical Management Specialist Name Role Phone Unavailable Primary Care Provider Unavailabl e Encounter Details Date Type Department Care Team (Late st Contact Info) Description 2000 Outpatient Historical [facility] [place] [address] [place] [address] Single liveborn, born in hospital, delivered by delivery (Primary Dx) Social History Tobacco Use Types Packs/Day Years Used Date Smoking Tobacco: Never Assessed Comments Unknown Sex and Gender Information Value Date Recorded Sex Assigned at Not on file Legal Sex Female 3:50 AM WHITE SUGAR BOILER Gender Identity Not on file Sexual Orientation Not on file documented as of this encounter Plan of Treatment Not on file documented as of this encounter Visit Diagnoses Diagnosis Single liveborn, born in hospital, delivered by delivery- Primary documented in this encounter
--- OUTSIDE RECORDS SUMMARY | 2024-11-21 14:36 | XMS_ITS | Encounter Summary ---
Author Organization [facility] Address 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
--- OUTSIDE RECORDS SUMMARY | 2024-11-21 14:36 | XMS_ITS | Encounter Summary ---
Author Organization [facility] Address [address] [facility] Attn: [place] [address] Care Team Providers Care Thrasher Feeder Name Role Phone Unavailable Primary Care Provider Unavailabl e Encounter Details Date Type Department Care Team (Late st Contact Info) Description 2000 Inpatient [place] [address] [place] [address] Sunil Baker MD NO ADDRESS ON FILE Single liveborn, born in hospital, delivered by delivery (Primary Dx) Social History Tobacco Use Types Packs/Day Years Used Date Smoking Tobacco: Never Assessed Comments Unknown Sex and Gender Information Value Date Recorded Sex Assigned at Not on file 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
--- OUTSIDE RECORDS SUMMARY | 2024-11-21 14:36 | XMS_ITS | Encounter Summary ---
Author Organization [facility] Address 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
--- OUTSIDE RECORDS SUMMARY | 2024-11-21 14:36 | XMS_ITS | Encounter Summary ---
Author Organization [facility] Address 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
--- OUTSIDE RECORDS SUMMARY | 2024-11-21 14:36 | XMS_ITS | Encounter Summary ---
Author Organization [facility] Address [address] [place] [address] Care Team Providers Care Car Retarder Operator Name Role Phone Unavailable Primary Care Provider Unavailabl e Encounter Details Date Type Department Care Team (Latest Contact Info) Description 03/21/2003 Outpatient Historical HIS [facility] GLENDY Morrison, Chip Gutierrez MD NO ADDRESS ON FILE ROUTIN CHILD HEALTH EXAM (Primary Dx) Social History Tobacco Use Types Packs/Day Years Used Date Smoking Tobacco: Never Assessed Comments Unknown Sex and Gender Information Value Date Recorded Sex Assigned at Not on file Legal Sex Female 3:50 AM STATION SUPERINTENDENT Gender Identity Not on file Sexual Orientation Not on file documented as of this encounter Plan of Treatment Not on file documented as of this encounter Visit Diagnoses Diagnosis Routine infant or child health check- Primary documented in this encounter
--- OUTSIDE RECORDS SUMMARY | 2024-11-21 14:36 | XMS_ITS | Encounter Summary ---
Author Organization [facility] Address [address] [place] [address] Care Team Providers Care Link Cutter Name Role Phone Unavailable Primary Care Provider Unavailabl e Encounter Details Date Type Department Care Team (Late st Contact Info) Description 03/21/2003 Outpatient Historical [facility] Pediatrics - [facility] [address] [address] Chip Morrison MD NO ADDRESS ON FILE Social History Tobacco Use Types Packs/Day Years Used Date Smoking Tobacco: Never Assessed Comments Unknown Sex and Gender Information Value Date Recorded Sex Assigned at Not on file Legal Sex Female 3:50 AM MANAGER MBA Gender Identity Not on file Sexual Orientation Not on file documented as of this encounter Plan of Treatment Not on file documented as of this encounter Visit Diagnoses Not on filedocumented in this encounter
--- OUTSIDE RECORDS SUMMARY | 2024-11-21 14:36 | XMS_ITS | Encounter Summary ---
Author Organization [facility] Address 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
--- OUTSIDE RECORDS SUMMARY | 2024-11-21 14:36 | XMS_ITS | Encounter Summary ---
Author Organization [facility] Address [address] [place] [address] Care Team Providers Care Dry Cell Tester Name Role Phone Unavailable Primary Care Provider Unavailabl e Encounter Details Date Type Department Care Team (Late st Contact Info) Description 09/18/2001 Outpatient Historical [facility] [address] [address] Chip Morrison MD NO ADDRESS ON FILE Social History Tobacco Use Types Packs/Day Years Used Date Smoking Tobacco: Never Assessed Comments Unknown Sex and Gender Information Value Date Recorded Sex Assigned at Not on file 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
--- OUTSIDE RECORDS SUMMARY | 2024-11-21 14:36 | XMS_ITS | Encounter Summary ---
Author Organization [facility] Address 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
--- NOTE | 2024-11-21 15:05 | ED_ITS ---
HPI - Nausea/Vomiting/Diarrhea General Chief complaint: Nausea/Vomiting/Diarrhea Stated complaint: n/v Time Seen by Provider: 11/21/24 14:26 Source: patient and old records reviewed Mode of arrival: ambulatory Limitations: no limitations History of Present Illness HPI Narrative: Patient is a 24 y/o female who presents to the ED with c/o N/V. Patient is currently approximately 6 weeks gestation. . Reports she has been having persistent nausea and vomiting since Monday. She was seen in the ED here on Monday, given fluids, Benadryl, discharged with vitamin B6/Dramamine. Also given antibiotics for UTI at that time. Bedside ultrasound at that time showed IUP. She reports she initially felt better after ED visit, but has been having persistent nausea and vomiting, difficulty keeping down food and drink. Patient does not currently have an OBGYN. Was referred to [facility], but has not made an appointment yet. Denies vaginal bleeding, lower abdominal pain. Denies fevers. Related Data Allergies Allergy/AdvReac Type Severity Reaction Status Date / Time No Known Allergies Allergy Verified 11/19/24 10:17 Review of Systems 2 Review of Systems: All systems reviewed & are unremarkable except as noted in HPI. All systems reviewed & are unremarkable except as noted in HPI and below PMFSH Past Medical History Medical History No significant past medical history Surgical History Surgical History No significant past surgical history Social History Social History Smoking status: Former smoker Alcohol intake: former Substance use: former Substance use type: marijuana Exam 2 Narrative: GENERAL: Well appearing, obese with BMI of 36.3, non-toxic, in mild acute distress, actively vomiting. HEAD: Normocephalic, atraumatic. RESPIRATORY: Airway patent, respirations nonlabored. Clear to auscultation bilaterally, no rales, rhonchi, wheezing. CARDIOVASCULAR: Borderline tachycardic with regular rhythm without murmurs, rubs, or gallops. ABDOMINAL: Soft, no tenderness, nondistended. Normoactive BS. MUSCULOSKELETAL: Moves all extremities. No gross deformities. SKIN: Warm, dry, normal color. NEURO: A&O X3. Speech clear. PSYCHIATRIC: Appropriate mood and affect. Normal interaction. Course Vital Signs Vital signs: Vital Signs Temperature 98.4 F 11/21/24 14:17 Pulse Rate 97 11/21/24 14:17 Respiratory Rate 16 11/21/24 14:17 Blood Pressure 135/82 11/21/24 14:17 Pulse Oximetry 98 11/21/24 14:17 Temperature 98.4 F 11/21/24 14:17 Pulse Rate 97 11/21/24 14:17 Respiratory Rate 16 11/21/24 14:17 Blood Pressure 135/82 11/21/24 14:17 Pulse Oximetry 98 11/21/24 14:17 MDM - Nausea/Vomiting/Diarrhea MDM Narrative Medical decision making narrative: Patient presented to ED with nausea, vomiting, currently 6 weeks gestation. Confirmed IUP. Denying any abdominal pain or vaginal bleeding. Was recently seen in the ED here for similar symptoms. Vital signs are stable upon arrival. Patient is afebrile. Laboratory studies today with white blood cell count of 14.6. Likely reactive related to vomiting. BMP unremarkable. Stable electrolytes. Stable kidney function. Mag within normal range. Beta hcg is uptrending appropriately. UA with ketonuria, 6-10 WBC. Patient currently on keflex for UTI. No urine culture was obtained from two days ago unfortunately. Patient given fluids, benadryl, reglan, pepcid. On reeval, she is feeling improved. Still feels slightly nauseous, but was able to tolerate p.o. intake. Feel she is safe for D/C home at this time with close OP f/u with OBGYN. Advised she contact office tomorrow to make follow-up appointment. Will prescribe short course of Reglan for home use. Advised to continue vitamin B6, Dramamine, mariano supplements, small frequent meals throughout the day, push fluids. Patient in agreement with plan. Feels comfortable going home. Discharged in stable condition. Medical Records Attestation: I reviewed the patient's medical records. Lab Data Attestation: I reviewed the patient's lab results. 11/21/24 15:27 11/21/24 15:27 Labs: Lab Results 05/08/25 05/08/25 Range/Units 15:27 17:04 WBC 14.6 H (4.5-10.0) K/mm3 RBC 4.83 (4.2-5.4) M/mm3 Hgb 14.0 (12.0-15.0) g/dL Hct 40.3 (37.0-47.0) % MCV 83.4 (80-100) fl MCH 29.0 (26-34) pg MCHC 34.7 (32-36) g/dl RDW 12.9 (11.5-14.5) % Plt Count 277 (150-375) k/mm3 MPV 11.0 H (7.4-10.4) fl Immature Gran % (Auto) 0.5 (0-0.5) % Neut % (Auto) 72.6 (45.5-73.1) % Lymph % (Auto) 19.6 (18.3-44.2) % [place] % (Auto) 6.3 (2.6-8.5) % Eos % (Auto) 0.7 (0-4.4) % Baso % (Auto) 0.3 (0.2-1.2) % Lymph # (Auto) 2.86 (0.9-3.2) K/mm3 [place] # (Auto) 0.9 H (0.1-0.6) K/mm3 Eos # (Auto) 0.1 (0-0.3) K/mm3 Baso # (Auto) 0.0 (0.0-0.1) K/mm3 Abs Immat Gran (auto) 0.08 H (0.00-0.031) K/mm3 Absolute Neuts (auto) 10.6 H (1.3-6.7) K/mm3 Absolute Nucleated RBC 0.000 (0.0-0.012) K/mm3 Nucleated RBC % 0.0 (0.0-0.2) % Sodium 137 (137-145) mmol/L Potassium 3.5 (3.4-5.0) mmol/L Chloride 103 (98-107) mmol/L Carbon Dioxide 23 (22-30) mmol/L Anion Gap 11 (4-12) mmol/L BUN 7 (7-17) mg/dL Creatinine 0.53 L (0.7-1.0) mg/dL Estim Creat Clear Calc 143 ml/min Estimated GFR > 60 (59 - ) Glucose 101 (65-110) mg/dL Calcium 9.6 (8.4-10.2) mg/dL Magnesium 2.2 (1.6-2.3) mg/dL Beta HCG, Quant 14830.00 mIU/ML Urine Color Dark yellow (Yellow) Urine Appearance Cloudy H (Clear) Urine pH 7.5 (5.0-9.0) Ur Specific [place] 1.028 (1.001-1.035) Urine Protein 1+ H (Negative) mg/dL Urine Glucose (UA) Negative (Negative) mg/dL Urine Ketones 4+ H (Negative) mg/dL Ur Blood (Man) Negative (Negative) Urine Nitrate Negative (Negative) Urine Bilirubin Negative (Negative) Urine Urobilinogen 2.0 H (<2.0) mg/dL Add Ur Microanalysis Reviewed Leukocyte Esterase Rfl Negative (Negative) JUAN DAVID/UL Urine RBC 0-2 (0-2) /hpf Urine WBC 6-10 H (0-3) /hpf Ur Squamous Epith Cells Occasional (Few) /hpf Urine Bacteria 1+ H /hpf Urine Casts 0-2 Discharge Plan Discharge Clinical Impression: Nausea and vomiting during , 6 weeks gestation of Patient Disposition: Home Condition: Stable Instructions: Antibiotic Form, Dehydration (ED), Clear Liquid Diet (ED), Acute Nausea and Vomiting (ED) Additional Instructions: Continue your antibiotics as prescribed for urinary tract infection. Continue B6/Dramamine as needed for nausea. Recommend small frequent meals throughout the day to avoid hunger triggering nausea, mariano supplements. Utilize Reglan as needed for further nausea. Increase fluid intake. Recommend electrolyte rich fluids, gatorade, pedialyte, body armour. Recommend clear liquids or bland diet until symptoms improve, such as bananas, rice, applesauce, toast, or crackers. You will need to follow-up with OBGYN for further evaluation and to establish care. Contact office to make appointment. Return to the ED if you experience worsening or severe symptoms, unable to keep down food or drink, severe pain, abdominal pain, vaginal bleeding, fevers, rectal bleeding, vomiting blood, or any other symptoms of concern. Patient Language: Turkmen Prescriptions: New metoclopramide HCl 5 mg tablet 5 mg PO Q6H PRN (Reason: nausea and vomiting) Qty: 15 0RF No Action cephalexin 500 mg tablet 500 mg PO Q12H 7 Days Qty: 14 0RF pyridoxine (vitamin B6) 25 mg tablet 25 mg PO Q6-8H PRN (Reason: nausea and vomiting) Qty: 20 0RF dimenhydrinate 50 mg tablet 50 mg PO Q4-6H PRN (Reason: nausea and vomiting) Qty: 20 0RF Follow-up/Referrals: Wicho Henry MD [Physician] - (OBGYNElsa Freitas,Luis Armando Valero MD [Primary Care Provider] - Stand Alone Forms: Work/School Release IP Time of Disposition: 18:51
[2024-11-21] MEDS: diphenhydrAMINE HCl INJ 50 MG/ML VIAL 25 MG IV PUSH (15:27)
[2024-11-21] MEDS: SODIUM CHLORIDE 0.9% IV 1,000 ML 999 ML IV CONT (15:27)
[2024-11-21] MEDS: FAMOTIDINE 20 MG/2 ML VIAL IV PUSH (15:28)
[2024-11-21] MEDS: METOCLOPRAMIDE HCL INJ 10 MG/2 ML VIAL IV PUSH (15:29)
[2024-11-21 15:33] LABS: Basophils Percent Auto 0.3 % (0.2-1.2); Eosinophils Absolute Auto 0.1 K/mm3 (0-0.3); Eosinophils Percent Auto 0.7 % (0-4.4); Hematocrit 40.3 % (37.0-47.0); Immature Granulocyte Absolute 0.08 K/mm3 (0.00-0.031); Immature Granulocyte Percent A 0.5 % (0-0.5); Lymphocytes Absolute Auto 2.86 K/mm3 (0.9-3.2); Lymphocytes Percent Auto 19.6 % (18.3-44.2); Mean Corpuscular HGB Conc 34.7 g/dl (32-36); Mean Corpuscular Volume 83.4 fl (80-100); Monocytes Absolute Auto 0.9 K/mm3 (0.1-0.6); Monocytes Percent Auto 6.3 % (2.6-8.5); Neutrophils Absolute Auto 10.6 K/mm3 (1.3-6.7); Neutrophils Percent Auto 72.6 % (45.5-73.1); Platelet Count Result 277 k/mm3 (150-375); Red Blood Count 4.83 M/mm3 (4.2-5.4); Red Cell Distribution Width 12.9 % (11.5-14.5); White Blood Count 14.6 K/mm3 (4.5-10.0)
[2024-11-21 15:48] LABS: Anion Gap 11 mmol/L (4-12); Blood Urea Nitrogen 7 mg/dL (7-17); Calcium 9.6 mg/dL (8.4-10.2); Carbon Dioxide 23 mmol/L (22-30); Chloride 103 mmol/L (98-107); Estimated CRCL calculation 143 ml/min; Estimated Glomerular Filt Rate > 60; Glucose 101 mg/dL (65-110); Magnesium 2.2 mg/dL (1.6-2.3); Potassium 3.5 mmol/L (3.4-5.0); Sodium 137 mmol/L (137-145)
[2024-11-21 17:25] LABS: Add Urine Microscopic? YES; Appearance Urine Cloudy (Clear); Bacteria Urine 1+ /hpf; Bilirubin Urine Negative (Negative); Blood Urine Negative (Negative); Color Urine Dark Yellow (Yellow); Glucose Urine UA Negative (Negative); Ketones Urine 4+ mg/dL (Negative); Leukocyte Esterase Ur Negative LEU/UL (Negative); Need Manual Microscopic Reviewed; Nitrate Urine Negative (Negative); Non Pathogenic Casts 0-2; Protein Urine 1+ mg/dL (Negative); RBC Urine 0-2 /hpf (0-2); Specific Grav Ur 1.028 (1.001-1.035); Squamous Epithelial Cell Urine Occasional /hpf (Few); pH Urine 7.5 (5.0-9.0)
[2024-11-21 19:40] VITALS: BP 116/76; PULSE 65; RESP 13; TEMP 36.6; O2SAT 98
== END 2024-11-21 19:45 | disposition home or self-care (01) ==
PROVIDERS: Emergency Provider Physician Assistant; PCP Internal Medicine Gastroenterology
DX: O21.0 Mild hyperemesis gravidarum (principal); Z3A.01 Less than 8 weeks gestation of pregnancy; Z87.891 Personal history of nicotine dependence
CPT/HCPCS: 36415; 80048; 81001; 83735; 84702; 85025; 87086; 96361; 96374; 96375; 99284; J1200; J2765; J7030

== ENCOUNTER 2025-05-22 10:11 | Observation (INO) | payer OTHER, SELFPAY ==
[2025-05-22] VITALS (50 sets, daily range): BP systolic 99–137; BP diastolic 59–123; PULSE 75–165; RESP 16–18; TEMP 36.6; O2SAT 94–100; BMI 36.3
--- NOTE | ~2025-05-22 | US_ITS ---
US abdomen limited Indication: Upper abdominal pain Comparison: None Technique: Hills-scale and color Doppler images were obtained. Findings: LIVER: Unremarkable, liver contours intact, no lesions. Normal echogenicity. . GALLBLADDER/BILIARY: Unremarkable.No cholelithiais, wall thickening or pericholecystic fluid. No biliary dilatation. CBD 3 mm. Jupiter sign negative. PANCREAS: Pancreas limited by bowel gas. Right Kidney: Right kidney not imaged. Impression: No acute abnormality. Reviewed, dictated and finalized at location P. RSCHOOL BABYSITTER Impression: No acute abnormality.
--- NOTE | 2025-05-22 10:48 | OBADM ---
This patient, Anusha Mohan, admitted to the OB room 116 for observation. Patient/family oriented to hospital policies and general routines including ID bracelet, bed and alarms, visiting hours, pain management, procedures, bathroom and other care routines, personal items, smoking policy, room service/diet, and visiting hours. Patient/Family are encouraged to report perceived risks to care and to ask questions if they do not understand what they are told or what they should do.
[2025-05-22 11:02] LABS: Add Urine Microscopic? NO; Appearance Urine Clear (Clear); Glucose Urine UA Negative (Negative); Leukocyte Esterase Ur Negative LEU/UL (Negative); Nitrate Urine Negative (Negative); Specific Grav Ur 1.016 (1.001-1.035)
[2025-05-22 12:25] LABS: Hematocrit 35.3 % (37.0-47.0); Hemoglobin 12.0 g/dL (12.0-15.0); Immature Granulocyte Percent A 1.0 % (0-0.5); Lymphocytes Absolute Auto 2.08 K/mm3 (0.9-3.2); Mean Corpuscular HGB Conc 34.0 g/dl (32-36); Mean Corpuscular Hemoglobin 28.4 pg (26-34); Mean Corpuscular Volume 83.6 fl (80-100); Nucleated Red Blood Cells Absolute Auto 0.000 K/mm3 (0.0-0.012); Nucleated Red Blood Cells Perc 0.0 % (0.0-0.2); Platelet Count Result 254 k/mm3 (150-375); Red Blood Count 4.22 M/mm3 (4.2-5.4); White Blood Count 10.5 K/mm3 (4.5-10.0)
[2025-05-22 12:44] LABS: Alanine Aminotransferase 22 U/L (6-35); Albumin Level 3.3 g/dL (3.5-5.1); Alkaline Phosphatase 126 U/L (38-126); Anion Gap 6 mmol/L (4-12); Aspartate Amino Transferase 29 U/L (14-36); Bilirubin,Total 0.3 mg/dL (0.2-1.3); Blood Urea Nitrogen 6 mg/dL (7-17); Calcium 8.7 mg/dL (8.4-10.2); Carbon Dioxide 23 mmol/L (22-30); Chloride 103 mmol/L (98-107); Estimated CRCL calculation 134 ml/min; Estimated Glomerular Filt Rate > 60; Glucose 90 mg/dL (65-110); Potassium 4.1 mmol/L (3.4-5.0); Sodium 132 mmol/L (137-145); Total Protein 6.6 g/dL (6.3-8.2)
[2025-05-22] MEDS: BELLADONNA ALK/PHENOB ELIX 10 ML, MAG HYDROX/ALUMINUM HYD/SIMETH 30 ML, LIDOCAINE 2% VI... PO (13:28)
[2025-05-22] MEDS: TERBUTALINE SULFATE 1 MG/ML VIAL 0.25 MG SUB-Q (14:12)
[2025-05-22] MEDS: CYCLOBENZAPRINE HCL 10 MG TABLET PO (16:42)
[2025-05-22 17:22] LABS: Fetal Fibronectin Negative
--- OUTSIDE RECORDS SUMMARY | 2025-05-22 18:21 | XMS_ITS | Encounter Summary ---
Author Organization [facility] Address 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
--- OUTSIDE RECORDS SUMMARY | 2025-05-22 18:21 | XMS_ITS | Encounter Summary ---
Author Organization [facility] Address [address] [place] [address] Care Team Providers Care Railway Signalling Engineer Name Role Phone Unavailable Primary Care Provider Unavailabl e Encounter Details Date Type Department Care Team (Latest Contact Info) Description 2000 Outpatient Historical [facility] [place] [address] [place] [address] Need for prophylactic vaccination and inoculation against other combinations of diseases (Primary Dx) Social History Tobacco Use Types Packs/Day Years Used Date Smoking Tobacco: Never Assessed Comments Unknown Sex and Gender Information Value Date Recorded Sex Assigned at Not on file 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
--- OUTSIDE RECORDS SUMMARY | 2025-05-22 18:21 | XMS_ITS | Clinical Summary ---
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
--- OUTSIDE RECORDS SUMMARY | 2025-05-22 18:21 | XMS_ITS | Encounter Summary ---
Author Organization [facility] Address 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
--- OUTSIDE RECORDS SUMMARY | 2025-05-22 18:21 | XMS_ITS | Data Portability ---
Author Organization [facility] Address [address] [place] [address] [place] [address] Assessment Encounter Date Assessment Date Assessment LastModified by Organization Details LastModified Time 04/30/2025 04/30/2025 Patient is ___weeks . Discussed plan. Not available 04/30/2025 17:22:51 05/15/2025 05/15/2025 Patient is ___weeks . Discussed plan. Not available 05/15/2025 16:26:14 Plan of Treatment Reminders Order Date Submit Date Provider Last Modified By Organization Details Last Modified Time Details Appointments OB ROUTINE 2024 01:30P M YESSY KENT MD Not available Not available Not available U/S OB GROWTH 2024 04:30P M ULTRASOUND Not available Not available Not available OB ROUTINE 2024 05:00P M YESSY KENT MD Not available Not available Not available Lab None recorde d. Referral None recorde d. Procedures None recorde d. Surgeries None recorde d. Imaging US, obstetr ic, follow- up 2024 025 [facility], [address], [address], [place], [address], 05/16/2025 10:00:12 Medication Orders None recorde d. Patient TargetsNo targets recorded. Patient InstructionsNo instructions recorded. Reason for Referral None Reported. Results Created Date Observation Date Name Description Value Unit Range Abnormal Flag Note LastModifiedBy Organization Detail LastModifiedTime 10/03/20 25 04/18/2025 HEMAT OCRIT (HCT) HCT 35.3 % (based on docume nted legal sex) 34.0-4 5.0 Not Available [facility] (Lab) [address], [place], [address], 04/19/2025 11:56:39 04/18/20 25 04/18/2025 HEMOG LOBIN (HGB) HGB 11.9 g/dL (based on docume nted legal sex) 11.6-1 5.4 Not Available [facility] (Lab) [address], [place], [address], 04/19/2025 11:56:39 04/18/20 25 04/18/2025 GTT - GESTA EMILY L CHRIS N, ACOG OB glucose, 1 hour screen 89 mg/dL 70-135 Not Available [facility] (Lab) [address], [place], [address], 04/19/2025 11:56:39 04/18/20 25 04/18/2025 HIV 1/2 ANTIG EN/AN TIBOD Y, REFLE X CONFI RMATI ON HIV antigen/anti body Nonrea ctive nonrea ctive HIV-1 antig en and HIV-1 /HIV- 2 antib odies were not detec franci. No labor atory evide nce of HIV infec tion. Not Available [facility] (Lab) [address], [place], [address], 04/19/2025 11:56:40 04/18/20 25 04/18/2025 RPR SCREE N, REFLE X TITER /CONF IRMAT ION RPR qualitative Nonrea ctive nonrea ctive Not Available [facility] (Lab) [address] [place], [address], 04/19/2025 11:56:40 02/19/20 25 02/18/2025 US, obste tric, 2nd or 3rd trime ster No observ ation record ed. [facility] [address], [place], [address], 02/18/2025 18:22:42 02/19/20 25 02/18/2025 US, obste tric, 2nd or 3rd trime ster No observ ation record ed. [email or web address], [place], [address], 02/19/2025 17:40:42 05/15/20 25 05/15/2025 US, obste tric, follo w-up No observ ation record ed. [facility] [address], [place], [address], 05/15/2025 18:01:07 05/15/20 25 05/15/2025 US, obste tric, follo w-up No observ ation record ed. [email or web address] [address], [place], [address], 05/16/2025 11:28:46 05/22/20 25 05/22/2025 imagi ng/di agnos tic resul t No observ ation record ed. [address] [facility], [place], [address], 05/22/2025 14:46:07 05/22/20 25 05/22/2025 imagi ng/di agnos tic resul t No observ ation record ed. [address] [id number], [place], [address], 05/22/2025 14:46:06 Result Notes None recorded. Problems Name Problem SNOMED Code Status Onset Date Resolution Date Notes Provider Name and Address Organization Details Recorded Time Rubella non-immun e 914190777 Active 2024 MMR vaccine pp Jessica box [place] - [facility] 10:05:31 Asthma 695191038 Active 2024 Shanya Davison, BRAULIO [address], [place], [address], [facility] 15:56:57 83757275 Active 2024 Rosa box, [facility] 15:33:14 Asthma 968515556 Active 2024 Shayna Davison CNM [address], [place], [address], [facility] 15:56:57 Body mass index 30+ - obesity 052398224 Active 2024 Starting BMI of around 32, 36 in the 3rd trimester . Thirty-tw o week growth ultrasoun d. Consider testing at 37 weeks Brian Caro MD [address], [place], [address], [facility] 17:54:15 Problem Notes None recorded. Procedures Surgical History Date Name Laterality Status Provider Name and Address Organization Details Recorded Time 12/25/2024 Date of Last Pap Smear completed Petra Dill [facility] 12/25/2024 19:40:01 Imaging Results None recorded. Procedure Notes None recorded. Medical Equipment None Reported. Allergies No known drug allergies Medications Name Sig Start Date Stop Date Status Note LastModified by Organization Details LastModified Time Vitamin B-6 25 mg tablet TAKE 1 TABLET BY MOUTH EVERY 6 TO 8 HOURS NEEDED FOR NAUSEA AND VOMITING 04/30 completed Not Available Not Available Not Available albuterol sulfate 2.5 mg/3 mL (0.083 %) solution for nebulizatio n INHALE 3 ML BY NEBULIZAT ION 3 TIMES A DAY active Not Available Not Available No t Available metronidazo le 500 mg tablet Take 1 tablet twice a day by oral route for 7 days. 01/24 completed Not Available Not Available Not Available metoclopram fani 5 mg tablet TAKE 1 TABLET BY MOUTH EVERY 6 HOURS NEEDED FOR NAUSEA AND VOMITING 04/30 completed Not Available Not Available Not Available cephalexin 500 mg capsule TAKE 1 CAPSULE BY MOUTH EVERY 12 HOURS FOR 7 DAYS 01/24 completed Not Available Not Available Not Available montelukast 10 mg tablet TAKE 1 TABLET BY MOUTH EVERY DAY active Not Available Not Available No t Available fluticasone propionate 220 mcg/actuati on HFA aerosol inhaler TAKE 2 PUFFS BY MOUTH TWICE A DAY 01/24 completed Not Available Not Available Not Available albuterol sulfate HFA 90 mcg/actuati on aerosol inhaler INHALE 2 PUFFS INTO THE LUNGS 4 TIMES A DAY NEEDED active Not Available Not Available No t Available ondansetron 4 mg disintegrat ing tablet PLACE 1 TABLET ON TONGUE AND DISSOLVE TWICE A DAY active Not Available Not Available No t Available fluticasone propionate 110 mcg/actuati on HFA aerosol inhaler INHALE 2 PUFFS BY MOUTH TWICE A DAY active Not Available Not Available No t Available Lo-Zumandim ine (28) 3 mg-0.02 mg tablet TAKE 1 TABLET BY MOUTH EVERY DAY 01/24 completed Not Available Not Available Not Available Vitals Date Recorded Body height Body mass index (BMI) Body weight Systolic And Diastolic Provider Name and Address Organization Details Last Updated DateTime 03/19/2025 158.75 cm 35.1 kg/m2 11702.51 g 121/78 mm[Hg] [facility] 03/19/2025 17:14:39 Date Recorded Body height Body mass index (BMI) Body weight Systolic And Diastolic Provider Name and Address Organization Details Last Updated DateTime 04/18/2025 158.75 cm 36.5 kg/m2 89992.25 g 111/78 mm[Hg] Beatriz Early [facility] 04/18/2025 12:08:30 Date Recorded Body weight Body mass index (BMI) Body height Systolic And Diastolic Provider Name and Address Organization Details Last Updated DateTime 04/30/2025 74828.843 48 g 36.7 kg/m2 158.75 cm 120/81 mm[Hg] [facility] 04/30/2025 17:23:17 Date Recorded Body weight Systolic And Diastolic Provider Name and Address Organization Details Last Updated DateTime 05/15/2025 51193.10034 g 118/77 mm[Hg] Ewa Jake [facility] 05/15/2025 16:26:41 Social History Question Answer Notes LastModified by Organizat ion Details LastModified Time Tobacco Smoking Status Former Smoker Petra Fuentes box, [facility] 12/25/2024 19:41:56 Do You Have An Advance Directive? No [email or web address] Information not available 12/25/2024 If You Are , What Was Your Level Of Alcohol Consumption Prior To ? Occasional [email or web address] Information not available 12/25/2024 Are You Blind Or Do You Have Difficulty Seeing? No [email or web address] Information not available 12/25/2024 What Is Your Level Of Caffeine Consumption? Occasional Information not available 12/25/2024 In The 14 Days Before Symptom Onset, Have You Had Close Contact With A Laboratory-confir med COVID-19 While That Case Was Ill? No [email or web address] Information not available 12/25/2024 In The 14 Days Before Symptom Onset, Have You Had Close Contact With A Person Who Is Under Investigation For COVID-19 While That Person Was Ill? No [email or web address] Information not available 12/25/2024 Have You Been To An Area Known To Be High Risk For COVID-19? No [email or web address] Information not available 12/25/2024 Are You Deaf Or Do You Have Serious Difficulty Hearing? No [email or web address] Information not available 12/25/2024 What Type Of Diet Are You Following? REGULAR Information not available 12/25/2024 What Is The Highest Grade Or Level Of School You Have Completed Or The Highest Degree You Have Received? SG89188-6 [email or web address] Information not available 12/25/2024 Are There Any Guns Present In Your Home? No [email or web address] Information not available 12/25/2024 Do You Use Protection During Sex? No [email or web address] Information not available 12/25/2024 Do You Use Your Seat Belt Or Car Seat Routinely? Yes [email or web address] Information not available 12/25/2024 Do You Have Smoke And Carbon Monoxide Detectors In Your Home? Yes [email or web address] Information not available 12/25/2024 How Much Tobacco Do You Smoke? No [email or web address] Information not available 12/25/2024 Do You Use Sunscreen Routinely? Yes [email or web address] Information not available 12/25/2024 Has Tobacco Cessation Counseling Been Provided? No [email or web address] Information not available 12/25/2024 Have You Used IV Drugs? No [email or web address] Information not available 12/25/2024 Do You Have Difficulty Walking Or Climbing Stairs? No [email or web address] Information not available 12/25/2024 Sex: Unknown Functional Status Question Answer Note LastModified by Organizat ion Details LastModified Time Do you use any illicit or recreational drugs? No [email or web address] Information not available 12/25/2024 Do you or have you ever used any other forms of tobacco or nicotine? No [email or web address] Information not available 12/25/2024 What is your level of alcohol consumption? None [email or web address] Information not available 12/25/2024 Are you able to walk independently without assistance or assistive devices? [email or web address] Information not available 12/25/2024 Are you able to care for yourself independently? 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 No [email or web address] Information not available 12/25/2024 What is your exercise level? Occasional [email or web address] Information not available 12/25/2024 Mental Status Question Answer Note LastModified by Organization D etails LastModified Time Do you feel stressed (tense, restless, nervous, or anxious, or unable to sleep at night)? [id number] Information not available 12/25/2024 Family History Relationship Description Onset Age of this Age Resolved Age Notes LastModified by Organization Details LastModified Time Unspecified Relation Family history unknown [email or web address] Not available 12/25 15:33:59 Maternal Uncle Diabetes mellitus [email or web address] Not available 2024 16:51:20 Medical History Condition Response Allergies (Food, seasonal, environmental ) Y Other N Breast Cancer N Drug/Latex Allergies/Reactions N Blood Transfusion N Lung Disease N Dermatologic Disorders N Defects or Inherited Disease N Breast Problem N Gestational Diabetes N Hematologic disorders N Anesthesia Complications N History of STI N Deep Vein Thrombosis N Polycystic ovary syndrome N Anxiety Disorder N Autoimmune disease N Arthritis N Polyps N Infertility N History of abnormal pap N Acid Reflux (GERD) N Cancer N Varicosities N Stroke N Neurologic/Epilepsy N Endometriosis N High Cholesterol N Fibromyalgia N Headaches N Kidney Disease N Heart Problems N Kidney or Bladder Problems N Thyroid Problems N GI Problems N Eating Disorder N Anemia N Art (IVF or FET) N Psychiatric Illness N Ovarian Cancer N Diabetes N Pulmonary (TB, Asthma) N Hepatitis/Liver Disease N No Past Medical History N Eczema N Urinary Tract Infection N Abuse/Domestic Violence N Asthma Y Trauma/Violence N Depression/ depression N Heart Disease N Pre-Eclampsia N Hypertension N Osteoporosis N Thrombophilias N Gynecological History Statement/Question Response Date of Last Mammogram Date of LMP 10/05/2024 On BCP's at Conception? N N Was last menstrual period normal Y STIs/STDs N HPV Vaccine N Duration of Flow (days) 4 Current Control Method Date of Last Colonoscopy Frequency of Cycle (Q days) 30 Sexually Active? Y Date of DEXA bone scan Age of first menstrual cycle 8 Date of Last Pap Smear 12/25/2024 Sexual Problems? N Desired Control Method None LMP Unknown N Obstetrics History GPAL:G 1 P 0 0 0 0 Type Value Living 0 Total 1 Past Encounters Encounter ID Performer Location Encounter Start Date Encounter Closed Date Diagnosis/Indication Diagnosis SNOMED-CT Code Diagnosis ICD10 Code Diagnosis IMO Codes Diagnosis Note [id number] Brian Caro MD [place] [address] [address] 12/25/2024 13:55:07 12/25/2024 16:06:24 screening 120308850 Z36.82 Z3A.12 [id number] [facility] [address] [address] 12/25/2024 13:58:04 12/25/2024 15:34:20 Gynecologic examination 81027606 Z01.463 [id number] Amenorrhea 29164052 N91. 2 95302 Nausea 902743251 R11.0 [id number] [facility] [address],[place] [address] 01/24/2025 15:22:10 01/24/2025 15:59:02 Gestation period, 16 weeks 34649963 Z3A.16 0022965 [id number] YESSY KENT MD [place] [address],[place] [address] 02/18/2025 13:47:23 02/18/2025 15:09:56 screening for malformation 875622445 Z36.3 Z3A.19 0504880596 [id number] MD Erickson LUNDY [address],[place] [address] 02/18/2025 13:47:42 02/19/2025 08:51:35 Asthma 413264597 J45.909 [id number] - well controlled Gestation period, 19 weeks 07753184 Z3A.19 9222025 - continue PNV [id number] YESSY KENT MD [place] [address],[place] [address] 03/19/2025 17:09:54 03/19/2025 17:26:10 Second trimester 42275759 Z34.02 63091910 [id number] YESSY KENT MD [place] [address],[place] [address] 04/18/2025 11:56:56 04/18/2025 12:41:40 Third trimester 34280707 Z34.03 50802231 - continue PNV- GCT and labs drawn today [id number] MD Erickson Rosales [address],[place] [address] 04/30/2025 16:51:14 05/01/2025 09:05:35 Third trimester 02899779 Z34.03 06091327 [id number] MD Erickson Rosales [address],[place] [address] 05/15/2025 15:29:36 05/15/2025 16:23:43 Observational assessment 486849330 Z03.74 Z3A.32 9733787 [id number] MD Erickson Rosales [address] [address] 05/15/2025 15:29:46 05/15/2025 16:50:15 Third trimester 26650766 Z34.03 [id number] Health Concerns Section Related Observation LastModified by Organization Detai ls LastModified Time None Recorded Concern Status LastModified by Organization Details LastModified Time None Recorded Advance Directives Directive N: Payers Insurance Date Sequence Insurance Name Policy Number Policy Mejia Covered Member ID Mejia Member ID Guarantor Name 05/12/2025 1 [facility] (MEDICAID REPLACEMENT - HMO) Anusha Mohan [id number] Anusha Mohan Notes Date Note Type Note Provider Name and Address Organization Details Recorded Time 03/19/2025 text/html Generic HPI TemplateReported by Patient YESSY KENT MD [address], [place], [address], [facility] 03/19/2025 17:24:52 04/18/2025 text/html Generic HPI TemplateReported by Patient YESSY KENT MD [address], [place], [address], [facility] 04/18/2025 12:35:24 04/30/2025 text/html Generic HPI TemplateReported by Patient Brian Caro MD [address], [place], [address], [facility] 04/30/2025 17:58:23 05/15/2025 text/html Generic HPI TemplateReported by Patient Brian Caro MD [address], [place], [address], [facility] 05/15/2025 16:44:11 OBGyn Episode Ob Episode Information Episode Created Date Number of Fetuses Patient Bloodtype Patient rh Status Prepregnancy Weight lbs Domestic Partner Domestic Partner Phone Father Name Collaborating Supervising Physician Status 01/25/20 25 1 O Positive 187 OPEN Fetus Data First Name Last Name Admitted to NICU Weight (g) Sex Living Outcome Pediatric Complications Fetus ID Race Codes Race Delivery Type [id number] Problems Problem Notes first - bASA daily Problem Name Start Date End Date Resolution Snomed Code Not e Asthma 01/24/2025 702132585 Body mass index 30+ - obesity 04/30/2025 194922926 Starting BMI of around 32, 36 in the 3rd trimester. Thirty-two week growth ultrasound. Consider testing at 37 weeks Micah Calculation Initial Micah Date Initial Exam Date Initial Exam Provider Initial Ultrasound Date Last Menstrual Period Date Ultra Sound Weeks Gestation 07/09/2025 01/24/2025 12/25/2024 12/25/2024 12 Eighteen To Twenty Week Micah Update Ultra Sound Date Fundal Height At Umbil Quickening Date Ultra Sound Latest Weeks Gestation Final Micah Confirmed By Final Micah Confirmed Date Final Micah Date Ultra Sound Latest Days Gestation 0 0 Pre- Flowsheet Flowsheet Date 01/24/2025 Sherwood Score Blood Edema Fundus Height Fundus Units Glucose Ketones Leukocytes Nitrite Labor Signs Protein Cervic Dilation Cervic Effacement Cervic Station Type Weight in lbs Pre/Post Dialysis Refused 185.239821906642 BP Diastolic BP Location Tested BP Systolic BP Type 85 L arm 132 sitting Fetus Heart Rate Present Fetus Movement A No Comments reviewed history, first preg lizbeth, bASA since 12 weeks, ok for claritin, b6 unisom and zofran for nausea, ok tums for heart burn, education and precautions begin routine care Flowsheet Date 02/18/2025 Sherwood Score Blood Edema Fundus Height Fundus Units Glucose Ketones Leukocytes Nitrite Labor Signs Protein Cervic Dilation Cervic Effacement Cervic Station Type Weight in lbs Pre/Post Dialysis Refused BP Diastolic BP Location Tested BP Systolic BP Type Fetus Heart Rate Present Fetus Movement Comments Flowsheet Date 02/18/2025 Sherwood Score Blood Edema Fundus Height Fundus Units Glucose Ketones Leukocytes Nitrite Labor Signs Protein Cervic Dilation Cervic Effacement Cervic Station neg none Type Weight in lbs Pre/Post Dialysis Refused Weight 188.697457267059 BP Diastolic BP Location Tested BP Systolic BP Type 83 L arm 128 sitting Fetus Heart Rate Present A Present Fetus Movement A No Comments Doing well, some lower abdom inal cramping. Daily nausea, improved with zofran. Having a girl! Anatomy complete and normal. EFW 23%. RTC 4 weeks for routine care. Flowsheet Date 03/19/2025 Sherwood Score Blood Edema Fundus Height Fundus Units Glucose Ketones Leukocytes Nitrite Labor Signs Protein Cervic Dilation Cervic Effacement Cervic Station Type Weight in lbs Pre/Post Dialysis Refused Weight 195.194389973323 BP Diastolic BP Location Tested BP Systolic BP Type 78 L arm 121 sitting Fetus Heart Rate Present A 155 Fetus Movement A Yes Comments Good movement. No cram ping or bleeding. Discussed 28 week labs for next visit. RTC 4 weeks. Flowsheet Date 04/18/2025 Sherwood Score Blood Edema Fundus Height Fundus Units Glucose Ketones Leukocytes Nitrite Labor Signs Protein Cervic Dilation Cervic Effacement Cervic Station Type Weight in lbs Pre/Post Dialysis Refused Weight 203.430802680541 BP Diastolic BP Location Tested BP Systolic BP Type 78 L arm 111 sitting Fetus Heart Rate Present A 140 Fetus Movement A Yes Comments Doing well, baby active. No cramping or bleeding. Having some bilateral feet swelling. Also GCT and labs today. Discussed tdap and RSV vaccine. RTC 2 weeks. Flowsheet Date 04/30/2025 Sherwood Score Blood Edema Fundus Height Fundus Units Glucose Ketones Leukocytes Nitrite Labor Signs Protein Cervic Dilation Cervic Effacement Cervic Station Type Weight in lbs Pre/Post Dialysis Refused 204.517702417272 BP Diastolic BP Location Tested BP Systolic BP Type 81 L arm 120 sitting Fetus Heart Rate Present A 150 Fetus Movement A Yes Comments no complaints, no problems, routine care, no contractions, no vaginal bleeding, no loss of fluid, no cramping Flowsheet Date 05/15/2025 Sherwood Score Blood Edema Fundus Height Fundus Units Glucose Ketones Leukocytes Nitrite Labor Signs Protein Cervic Dilation Cervic Effacement Cervic Station Type Weight in lbs Pre/Post Dialysis Refused BP Diastolic BP Location Tested BP Systolic BP Type Fetus Heart Rate Present Fetus Movement Comments Flowsheet Date 05/15/2025 Sherwood Score Blood Edema Fundus Height Fundus Units Glucose Ketones Leukocytes Nitrite Labor Signs Protein Cervic Dilation Cervic Effacement Cervic Station Type Weight in lbs Pre/Post Dialysis Refused 209.105365725257 BP Diastolic BP Location Tested BP Systolic BP Type 77 L arm 118 sitting Fetus Heart Rate Present A 144 Fetus Movement A Yes Comments no complaints, no problems, routine care, no contractions, no vaginal bleeding, no loss of fluid, no cramping Menstrual History Last Menstrual Date Menses Monthly On Bcp Conception Prior Menses Frequency Hcg Plus Date Menarche Onset Age 0612/25/2024 Delivery Information Delivery Date Delivery Type Labor Anesthesia Weeks Gestation Incision Type Labor Labor Length Hrs Delivered By Post Complications Tubal Sterilization Discharge Date Comments Discharge Information Feeding Method Contraceptive Method Maternal HG B and HCT Levels
--- OUTSIDE RECORDS SUMMARY | 2025-05-22 18:21 | XMS_ITS | Encounter Summary ---
Author Organization [facility] Address [address] [place] [address] Care Team Providers Care Clinical Research Director Name Role Phone Unavailable Primary Care Provider Unavailabl e Encounter Details Date Type Department Care Team (Late st Contact Info) Description 10/30/[address] 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
--- OUTSIDE RECORDS SUMMARY | 2025-05-22 18:21 | XMS_ITS | Encounter Summary ---
Author Organization [facility] Address [address] [place] [address] Care Team Providers Care Home Health Scheduler Name Role Phone Unavailable Primary Care Provider Unavailabl e Encounter Details Date Type Department Care Team (Late st Contact Info) Description 09/18/2001 Outpatient Historical [facility] Pediatrics - Medical [address] [address] [address] Chip Morrison MD NO ADDRESS ON FILE Social History Tobacco Use Types Packs/Day Years Used Date Smoking Tobacco: Never Assessed Comments Unknown Sex and Gender Information Value Date Recorded Sex Assigned at Not on file 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
--- OUTSIDE RECORDS SUMMARY | 2025-05-22 18:21 | XMS_ITS | Encounter Summary ---
Author Organization [facility] Address 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
--- OUTSIDE RECORDS SUMMARY | 2025-05-22 18:21 | XMS_ITS | Encounter Summary ---
Author Organization [facility] Address 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
--- OUTSIDE RECORDS SUMMARY | 2025-05-22 18:21 | XMS_ITS | Encounter Summary ---
Author Organization [facility] Address [address] [place] [address] Care Team Providers Care Injection Machine Operator Name Role Phone Unavailable Primary Care Provider Unavailabl e Encounter Details Date Type Department Care Team (Late st Contact Info) Description 03/21/2003 Outpatient Historical [facility] Pediatrics - [facility] [address] [address] Chip Morrison MD NO ADDRESS ON FILE Social History Tobacco Use Types Packs/Day Years Used Date Smoking Tobacco: Never Assessed Comments Unknown Sex and Gender Information Value Date Recorded Sex Assigned at Not on file 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
--- OUTSIDE RECORDS SUMMARY | 2025-05-22 18:21 | XMS_ITS | Encounter Summary ---
Author Organization [facility] Address 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
--- OUTSIDE RECORDS SUMMARY | 2025-05-22 18:21 | XMS_ITS | Clinical Summary ---
Author Organization [facility] Address [address] [place] [address] Care Team Providers Care Drive Worker Name Role Phone SusanneangelicaJil Cee JACOB Primary Care Provider [phone] Source Comments [facility],non-owned Affiliates and Associated Physician Practices is amultiple site organization consisting of ambulatory clinics and hospital sitesin [place], [place], [place] and [place]. This disclosure is being madepursuant to the Care Everywhere program and may not contain all information available regarding this patient. Last updated 18.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 Gender Identity Not on file Sexual Orientation [...] P M CDT Height 159.4 cm (5' 2.76) 12/07/2017 9:10 PM CD T Body Mass Index 31.13 12/07/2017 9:10 PM CDT Plan of Treatment Health Maintenance Due Date Last Done Comments HIV SCREENING 2015 HPV VACCINE (1 - 3-dose series) 2015 HEPATITIS C SCREENING 04/17/2018 CHLAMYDIA/GONORRHEA SCREENING 12/07/2018 12/07/2017 DTAP/TDAP/TD VACCINES (1 - Tdap) 2019 HEPATITIS B VACCINE (1 of 3 - 19+ 3-dose series) 2019 DEPRESSION SCREENING 07/17/2024 COVID-19 VACCINE (2023-2 5 season) 2025 INFLUENZA VACCINE (#1) 2025 ZOSTER VACCINE (1 of 2) 2050 [...] Probe Negative Negative 12/08/2017 9:43 AM CDT [facility] GC Amplified Probe Negative Negative 12/08/2017 9:43 AM CDT [facility] Microbiology ENTIRE ENDOCERVIX / Unknown Collection / Unknown 12/07/2017 2:47 PM CDT 12/07/2017 5:07 PM CDT Narrative [facility] - 12/08/2017 9:43 AM CDT Results based on detection/no detection of ribosomal RNA by amplified method. us Johnny Broderick MD LAB - MICROBIOLOGY ORDERABLES Final Result [facility] [address] [place] [address], [facility] [phone] from Last 3 Months or Most Recently Relevant to Health Maintenance Insurance MEDICAID - OUT OF STATE [place] [facility] Advance Directives * Full Code (Latest Code Status on File) Date Activated Date Inactivated Comments 12/07/2017 8:46 PM 12/09/2017 12:[address] Worker Relationship Specialty Start Date End Date Jil Solomon DO PCP - General Pediatrics 07/14/13
--- OUTSIDE RECORDS SUMMARY | 2025-05-22 18:21 | XMS_ITS | Encounter Summary ---
Author Organization [facility] Address [address] [place] [address] Care Team Providers Care Customer Service Advocate Name Role Phone Jil Solomon DO Primary Care Provider [phone] Encounter Details Date Type Department Care Team (Late st Contact Info) Description 08/30/2017 Ophth Exam [facility] Pediatrics - Ophthalmology [address] [place] [address] Gibran Beyer MD [address] [place] [address] Social History Tobacco Use Types Packs/Day Years Used Date Smoking Tobacco: Never Smokeless Tobacco: Never Alcohol Use Standard Drinks/Week Comments No 0 (1 standard drink = 0.6 oz pur e alcohol) Comments Unknown Sex and Gender Information Value Date Recorded Sex Assigned at Not on file 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
--- OUTSIDE RECORDS SUMMARY | 2025-05-22 18:21 | XMS_ITS | Clinical Summary ---
Author Organization [facility] Address [address] [place] [address] Phone Care Team Providers Care Iron Melter Name Role Phone Unavailable Primary Care Provider [...] on file Legal Sex Female 3:50 AM PATIENT OBSERVER Gender Identity Not on file Sexual Orientation Not on file Last Filed Vital Signs Vital Sign Reading Time Taken Comments Blood Pressure 101/59 06/14/2018 5:14 PM PATIENT OBSERVER Pulse - - Temperature 36.9 C (98.4 F) 06/14/2018 5:14 PM PATIENT OBSERVER Respiratory Rate 16 06/14/2018 5:14 PM PATIENT OBSERVER Oxygen Saturation 97% 06/14/2018 5:14 PM PATIENT OBSERVER Inhaled Oxygen Concentration - - Weight 74.8 kg (165 lb) 06/14/2018 1:28 PM PATIENT OBSERVER Height 157.5 cm (5' 2) 06/14/2018 1:28 PM PATIENT OBSERVER Body Mass Index 30.18 06/14/2018 1:28 PM PATIENT OBSERVER Plan of Treatment Health Maintenance Due Date Last Done Comments HPV VACCINES (1 - 3-dose series) 2015 DTAP/TDAP/TD VACCINES (1 - Tdap) 2019 HEPATITIS B VACCINES (1 of 3 - 19+ 3-dose series) 12/2018 CERVICAL CANCER SCREENING 2021 HPV/Cotest (21-29) 2021 PAP SMEAR 2021 INFLUENZA VACCINE (#1) 2025
--- OUTSIDE RECORDS SUMMARY | 2025-05-22 18:21 | XMS_ITS | Encounter Summary ---
Author Organization [facility] Address [address] Attn: Epic Prelude ADT [place] [address] Care Team Providers Care Slot Machine Floor Person Name Role Phone Unavailable Primary Care Provider Unavailabl e Encounter Details Date Type Department Care Team (Late st Contact Info) Description 2000 [place] [address] [place] [address] Sunil Baker MD NO ADDRESS ON FILE Single liveborn, born in hospital, delivered by delivery (Primary Dx) Social History Tobacco Use Types Packs/Day Years Used Date Smoking Tobacco: Never Assessed Comments Unknown Sex and Gender Information Value Date Recorded Sex Assigned at Not on file 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
--- OUTSIDE RECORDS SUMMARY | 2025-05-22 18:21 | XMS_ITS | Encounter Summary ---
Author Organization [facility] Address 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
--- OUTSIDE RECORDS SUMMARY | 2025-05-22 18:21 | XMS_ITS | Clinical Summary ---
Author Organization [facility] Address [facility] [place] [address] Care Team Providers Care Transfer Driver Name Role Phone Unavailable Primary Care [...] - 19+ 3-dose series) 2019 COVID-19 Vaccine (2024-2 6 season) 2025 Influenza Adult (#1) 2025 Hepatitis A Vaccines Aged Out No long er eligible based on patient's age to complete this topic Meningococcal B Vaccine Aged Out No l [...]
--- OUTSIDE RECORDS SUMMARY | 2025-05-22 18:21 | XMS_ITS | Encounter Summary ---
Author Organization [facility] Address [address] [place] [address] Care Team Providers Care Studio Control Operator Name Role Phone Unavailable Primary Care Provider Unavailabl e Encounter Details Date Type Department Care Team (Late st Contact Info) Description 01/30/[address] [facility] Pediatrics - [facility] [address] [address] Chip Morrison MD NO ADDRESS ON FILE Social History Tobacco Use Types Packs/Day Years Used Date Smoking Tobacco: Never Assessed Comments Unknown Sex and Gender Information Value Date Recorded Sex Assigned at Not on file Legal Sex Female 3:50 AM [place] ATTORNEY Gender Identity Not on file Sexual Orientation Not on file documented as of this encounter Plan of Treatment Not on file documented as of this encounter Visit Diagnoses Not on filedocumented in this encounter
--- OUTSIDE RECORDS SUMMARY | 2025-05-22 18:21 | XMS_ITS | Encounter Summary ---
Author Organization [facility] Address 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
--- OUTSIDE RECORDS SUMMARY | 2025-05-22 18:21 | XMS_ITS | Encounter Summary ---
Author Organization [facility] Address 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
--- OUTSIDE RECORDS SUMMARY | 2025-05-22 18:22 | XMS_ITS | Data Portability ---
Author Organization Shalom MCDONOUGH Address [address] [place] [address] Assessment Encounter Date Assessment Date Assessment LastModified by Organization Details LastModified Time 03/17/2022 03/17/2022 MARK ANTHONY Akins PAFranceS [email or web address] Not available 03/17/2022 20:01:38 Plan of Treatment Reminders Order Date Submit Date Provider Last Modified By Organization Details Last Modified Time Details Appointments None recorded. Lab test, urine 2023 024 [email or web address] In-Office Order, Internal Use Only DO Not Attach Compendium DO Not Attach Compendium, Do Not Delete/merge, [id number] 4 12:44:56 pap, IG + reflex HPV 2021 022 [facility], [address] [place] [address], [address], [place], [address], 14:13:27 bacterial vaginosis score, GOLDEN+probe, vaginal fluid (OBS) 2021 022 [facility], [address] [facility], [address], [place], [address], 14:13:26 Referral None recorded. Procedures None recorded. Surgeries None recorded. Imaging None recorded. Medication Orders albuterol sulfate 2.5 mg/3 mL (0.083 %) solution for nebulizatio n 2024 025 [id number] In [facility], [address] [place] [address], [address], 5 12:22:18 albuterol sulfate HFA 90 mcg/actuati on aerosol inhaler 2024 025 [facility] [address] In [facility], [address] [place] [address], [address], 5 12:22:18 fluticasone propionate 110 mcg/actuati on HFA aerosol inhaler 2024 025 [facility] [address] In [facility], [address] [place] [address], [address], 5 12:22:18 montelukast 10 mg tablet 2024 025 [facility] [address] In [facility], [address] [place] [address], [address], 5 12:22:17 drospirenon e 3 mg-ethinyl estradiol 0.02 mg tablet 2023 024 [email or web address] [address] In [facility], [address] [place] [address], [address], 4 22:43:33 montelukast 10 mg tablet 2023 024 [facility] [address] In [facility], [address] [place] [address], [address], 4 18:07:20 fluticasone propionate 220 mcg/actuati on HFA aerosol inhaler 2023 024 [facility] [address], [address], 4 18:07:20 albuterol sulfate 2.5 mg/3 mL (0.083 %) solution for nebulizatio n 2022 023 [facility] [address] In [facility], [address] [place], [address], 3 15:06:33 albuterol sulfate HFA 90 mcg/actuati on aerosol inhaler 2022 023 [facility] [address] In [facility], [address] [place] [address], [address], 3 15:06:30 Flovent HFA 110 mcg/actuati on aerosol inhaler 2022 023 [facility] [address] In [facility], [address] [place] [address], [address], 5 12:18:18 montelukast 10 mg tablet 2022 023 [facility] [address] In [facility], [address] [place] [address], [address], 3 15:06:33 Patient TargetsNo targets recorded. Patient Instructions Encounter Date Encounter Id Patient Instructions Last Modified By Organization Details Last Modified Time 02/01/2023 [id number] A healthy lifestyle: care instructions [email or web address] Not available 02/01/2023 15:06:19 02/19/2024 [id number] learning about asthma [email or web address] Not available 02/19/2024 18:07:18 02/26/2024 [id number] On the date of this encounter, I was immediately available to assist the resident/fellow in the care of the patient, and have reviewed and agree with the resident s findings and plan of care. ~MD Kevin [email or web address] Not available 02/26/2024 10:38:55 12/25/2024 [id number] A healthy lifestyle: care instructions [email or web address] Not available 12/25/2024 14:47:54 Reason for Referral None Reported. Results Created Date Observation Date Name Description Value Unit Range Abnormal Flag Note LastModifiedBy Organization Detail LastModifiedTime 03/17/20 22 03/23/2022 NUSWA B VG+, HSV atopobium vaginae High - 2 score abnormal Not Available [facility] ([facility]) [address] [facility], [place], [address], 03/23/2022 14:13:25 03/17/20 22 03/23/2022 NUSWA B VG+, HSV bvab 2 High - 2 score abnormal Not Available [facility] ([facility]) [address] [facility] [address], [place], [address], 03/23/2022 14:13:25 03/17/20 22 03/23/2022 NUA B VG+, HSV megasphaera 1 High - 2 score abnormal Calcu late total score by melody porras the 3 indiv idual bacte rial vagin osis (BV) marke r score s toget her. Total score is inter prete d as follo ws: Total score 0-1: Indic ates the absen ce of BV. Total score 2: Indet ermin ate for BV. Addit ional clini indu data shoul d be evalu ated to estab diana a diagn osis. Total score 3-6: Indic ates the prese nce of BV. This test was devel oped and its perfo rmanc e keith cteri stics deter mined by [facility]. It has not been clear ed or appro kendy by the Food and Drug Admin istra tion. Not Available [facility] ([facility]) [address] [facility] [address], [place], [address], 03/23/2022 14:13:25 03/17/20 22 03/23/2022 NUA B VG+, HSV juliano albicans, GOLDEN Negati ve negati ve Not Available [facility] ([facility]) [address] [facility] [address], [place], [address], 03/23/2022 14:13:25 03/17/20 22 03/23/2022 NUSWA B VG+, HSV juliano glabrata, GOLDEN Negati ve negati ve Not Available [facility] ([facility]) [address] [place], [address], 03/23/2022 14:13:25 03/17/20 22 03/23/2022 NUA B VG+, HSV trich vag by GOLDEN Negati ve negati ve Not Available [facility] ([facility]) [address] [facility] [address], [place], [address], 03/23/2022 14:13:25 03/17/20 22 03/23/2022 NUSWA B VG+, HSV chlamydia trachomatis, GOLDEN Negati ve negati ve Not Available [facility] ([facility]) [address] [facility] [address], [place], [address], 03/23/2022 14:13:25 03/17/20 22 03/23/2022 NUA B VG+, HSV neisseria gonorrhoeae, GOLDEN Negati ve negati ve Not Available [facility] ([facility]) [address] [facility] [address], [place], [address], 03/23/2022 14:13:25 03/17/20 22 03/23/2022 NUA B VG+, HSV hsv 1 GOLDEN Negati ve negati ve Not Available [facility] ([facility]) [address] [facility] [address], [place], [address], 03/23/2022 14:13:25 03/17/20 22 03/23/2022 NUSWA B VG+, HSV hsv 2 GOLDEN Negati ve negati ve Not Available [facility] ([facility]) [address] [place], [address], 03/23/2022 14:13:25 03/17/20 22 03/18/2022 IGP,A PTIMA HPV,A GE GDLN age gdln acog testing 21-29 Not Available [facility] ([facility]) [address] [place], [address], 03/23/2022 14:13:27 03/17/20 22 03/23/2022 IGP,A PTIMA HPV,A GE GDLN diagnosis: Trey CASIANO FOR INTRA EPITH ELIAL LESIO N OR FIDELIA MOE . Not Available [facility] ([facility]) [address] [place], [address], 03/23/2022 14:13:27 03/17/20 22 03/23/2022 IGP,A PTIMA HPV,A GE GDLN specimen adequacy: Trey evans Satis facto ramon for evalu ation . Endoc ervic al and/o r squam ous metap lasti c cells (endo cervi indu compo nent) are prese nt. Not Available [facility] ([facility]) [address] [place], [address], 03/23/2022 14:13:27 03/17/20 22 03/23/2022 IGP,A PTIMA HPV,A GE GDLN clinician provided ICD10: Trey evans Z01.4 19 Not Available [facility] ([facility]) [address] [place], [address], 03/23/2022 14:13:27 03/17/20 22 03/23/2022 IGP,A PTIMA HPV,A GE GDLN performed by: Trey Donaldson th, Cytot echgloria zabala t (ASCP ) Not Available [facility] ([facility]) [address] [place], [address], 03/23/2022 14:13:27 03/17/20 22 03/23/2022 IGP,A PTIMA HPV,A GE GDLN . . Not Available [facility] ([facility]) [address] [place], [address], 03/23/2022 14:13:27 03/17/20 22 03/23/2022 IGP,A PTIMA HPV,A GE GDLN note: Trey evans The Pap smear is a scree janis test melia riggs to aid in the detec tion of сергей ligna nt and malig nant condi tions of the uteri ne cervi x. It is not a diagn ostic proce dure and shoul d not be used as the sole means of detec ting cervi indu cance r. Both false -posi tive and false -nega tive repor ts do occur . Not Available [facility] ([facility]) [address] [place], [address], 03/23/2022 14:13:27 03/17/20 22 03/23/2022 IGP,A PTIMA HPV,A GE GDLN test methodology: Commen t This liqui d based ThinP rep(R ) pap test was scree oneil with the use of an image guide janiya ty. Not Available [facility] ([facility]) [address] [place], [address], 03/23/2022 14:13:27 03/17/20 22 03/23/2022 IGP,A PTIMA HPV,A GE GDLN . Commen t The HPV DNA refle x crite efrain were not met with this speci men resul t there fore, no HPV testi ng was perfo rmed. Not Available [facility] ([facility]) [address] [place], [address], 03/23/2022 14:13:27 02/26/20 24 02/26/2024 pregn seng test, urine HCG negati ve Not Available In-Office Order Internal Use Only DO Not Attach Compendium DO Not Attach Compendium, Do Not Delete/merge, [id number] 02/26/2024 11:11:33 05/22/20 25 05/22/2025 US, abdom en, limit ed No observ ation record ed. [email or web address], [place], [address], 05/22/2025 14:58:10 Result Notes None recorded. 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 Procedures Surgical History Date Name Laterality Status Provider Name and Address Organization Details Recorded Time 02/26/20 24 IUD Removal completed ADAN APODACA DO Attn: Accounting,[address] [place], [address], [place] [facility] 02/26/2024 10:32:18 03/17/20 22 Date of Last Pap Smear completed Linda Iglesias [place] [facility] 02/22/2024 09:04:27 03/19/20 19 IUD Replacement completed Diana Cristobal [place] [facility] 03/19/2019 13:20:23 07/11/20 18 IUD Insertion completed Brittany Shabazz MD Attn: Accounting[address] [facility], [place], [address], [facility] - [facility] 07/11/2018 16:45:59 Imaging Results None recorded. Procedure Notes None recorded. Medical Equipment None Reported. Allergies No known drug allergies Medications Name Sig Start Date Stop Date Status Note LastModified by Organization Details LastModified Time Prescripti on - Prior Authorizat ion Request 07/11 completed Not Available Not Available Not Available multivitam in tablet Take 1 tablet every day by oral route. 01/26 completed Not Available Not Available Not Available Mirena 21 mcg/24 hr (up to 8 years) 52 mg intrauteri ne device Take 1 device by intraute rine route. 01/19 completed Not Available Not Available Not Available Qvar 80 mcg/actuat ion Metered Aerosol oral inhaler Inhale 2 puffs twice a day by inhalati on route for 30 days. 10/30 completed Not Available Not Available Not Available prednisone 10 mg tablet active Not Available Not Available Not Available Vitamin B-6 25 mg tablet TAKE 1 TABLET BY MOUTH EVERY 6 TO 8 HOURS NEEDED FOR NAUSEA AND VOMITING active Not Available Not Available No t Available albuterol sulfate 2.5 mg/3 mL (0.083 %) solution for nebulizati on INHALE 3 ML BY NEBULIZA TION 3 TIMES A DAY active Not Available Not Available No t Available cetirizine 10 mg tablet Take 1 tablet every day by oral route. 02/01 completed Not Available Not Available Not Available ibuprofen 800 mg tablet Take 1 tablet 4 times a day by oral route. 09/29 completed Not Available Not Available Not Available fluconazol e 150 mg tablet Take 1 tablet by oral route. 02/01 completed Not Available Not Available Not Available phenazopyr idine 200 mg tablet 07/11 completed Not Available Not Available Not Available metronidaz ole 0.75 % (37.5 mg/5 gram) vaginal gel Insert 1 applicat orful every day by vaginal route at bedtime for 5 days. 09/29 completed Not Available Not Available Not Available ondansetro n HCl 4 mg tablet 01/26 completed Not Available Not Available Not Available sertraline 100 mg tablet TAKE ONE TABLET BY MOUTH ONCE DAILY 09/29 completed Not Available Not Available Not Available penicillin V potassium 500 mg tablet Take 1 tablet twice a day by oral route for 10 days. 09/29 completed Not Available Not Available Not Available metronidaz ole 500 mg tablet Take 1 tablet twice a day by oral route for 7 days. 02/01 completed Not Available Not Available Not Available valacyclov ir 500 mg tablet 07/11 completed Not Available Not Available Not Available ciprofloxa le 500 mg tablet 10/30 completed Not Available Not Available Not Available trifluridi ne 1 % eye drops active Not Available Not Available Not Available amoxicilli n 875 mg tablet active Not Available Not Available Not Available famotidine 20 mg tablet Take 1 tablet twice a day by oral route as needed. 01/19 completed Not Available Not Available Not Available prednisolo ne acetate 1 % eye drops,susp ension active Not Available Not Available Not Available IBU 600 mg tablet Take 1 tablet every 6 hours by oral route for 7 days. 01/19 completed Not Available Not Available Not Available cephalexin 500 mg capsule TAKE 1 CAPSULE BY MOUTH EVERY 12 HOURS FOR 7 DAYS 12/25 completed Not Available Not Available Not Available erythromyc in 5 mg/gram (0.5 %) eye ointment 07/11 completed Not Available Not Available Not Available triamcinol one acetonide 0.1 % topical ointment 07/11 completed Not Available Not Available Not Available diphenhydr amine 25 mg tablet Take 1 tablet as needed by oral route at bedtime for 30 days. 07/11 completed Not Available Not Available Not Available montelukas t 10 mg tablet TAKE 1 TABLET BY MOUTH EVERY DAY active Not Available Not Available No t Available fluticason e propionate 220 mcg/actuat ion HFA aerosol inhaler TAKE 2 PUFFS BY MOUTH TWICE A DAY active Not Available Not Available No t Available methylpred nisolone 4 mg tablets in a dose pack 01/19 completed Not Available Not Available Not Available albuterol sulfate HFA 90 mcg/actuat ion aerosol inhaler INHALE 2 PUFFS INTO THE LUNGS 4 TIMES A DAY NEEDED active Not Available Not Available No t Available hydrocorti sone 2.5 % topical ointment APPLY A THIN LAYER TO THE AFFECTED AREA(S) BY TOPICAL ROUTE 2 TIMES PER DAY 07/11 completed Not Available Not Available Not Available ondansetro n 4 mg disintegra ting tablet PLACE 1 TABLET ON TONGUE AND DISSOLVE TWICE A DAY active Not Available Not Available No t Available fluticason e propionate 50 mcg/actuat ion nasal spray,susp ension [place] 1 spray every day by intranas al route. 01/26 completed Not Available Not Available Not Available sertraline 50 mg tablet Take 1 tablet every day by oral route for 30 days. 10/30 completed Not Available Not Available Not Available fluticason e propionate 110 mcg/actuat ion HFA aerosol inhaler INHALE 2 PUFFS BY MOUTH TWICE A DAY active Not Available Not Available No t Available Tablet 28 mg iron-800 mcg Take 1 tablet every day by oral route. 07/11 completed Not Available Not Available Not Available Vitamin D3 25 mcg (1,000 unit) tablet Take 2 tablets every day by oral route with meals for 30 days. 07/11 completed Not Available Not Available Not Available Flovent HFA 44 mcg/actuat ion aerosol inhaler Inhale 1 puff twice a day by inhalati on route. 01/19 completed Not Available Not Available Not Available Calcium with Vitamin D 600 mg-10 mcg (400 unit) tablet Take 1 tablet twice a day by oral route. 01/26 completed Not Available Not Available Not Available Zirgan 0.15 % eye gel 07/11 completed Not Available Not Available Not Available Tiffanie Allergy 10/30 completed Not Available Not Available Not Available Tri-Linyah (28) 0.18 mg(7)/0.21 5 mg(7)/0.25 mg(7)-0.03 5 mg tablet Take 1 tablet every day by oral route. 09/27 completed Not Available Not Available Not Available Deanna 14 mcg/24 hr (up to 3 years) 13.5 mg intrauteri ne device 06/11 completed Never used. Denied by insuyuni thompson. Not Available Not Available Not Available Kyleena 17.5 mcg/24 hr (up to 5 years) 19.5 mg intrauteri ne device Take 1 device by intraute rine route. 2018 active Not Available Not Available Not Avai lable Solosec [address] granules in packet 09/29 completed Not Available Not Available Not Available Lo-Zhaydeedi mine (28) 3 mg-0.02 mg tablet Take 1 tablet every day by oral route for 90 days. active Not Available Not Available No t Available ID NOW COVID-19 Test Kit DIRECTED 06/09 completed Not Available Not Available Not Available Vitals Date Recorded Body height Body mass index (BMI) Body weight Heart rate Oxygen saturation Oxygen saturation in Arterial blood by Pulse oximetry Systolic And Diastolic Provider Name and Address Organization Details Last Updated DateTime 5 158.75 cm 33.7 kg/m2 44317.7 7 g 77 /min 99 % 99 % 124/87 mm[Hg] Itz Brennan MA [facility] 5 11:39:33 Date Recorded Body height Body mass index (BMI) Body weight Body temperature Oxygen saturation Oxygen saturation in Arterial blood by Pulse oximetry Heart rate Systolic And Diastolic Provider Name and Address Organization Details Last Updated DateTime 3 158.75 cm 35.8 kg/m2 59889.8 8 g 98.1 [degF] 98 % 98 % 76 /min 126/86 mm[Hg] Darby Lazo MA [facility] 3 14:48:11 Date Recorded Body height Body mass index (BMI) Body weight Heart rate Oxygen saturation Oxygen saturation in Arterial blood by Pulse oximetry Systolic And Diastolic Provider Name and Address Organization Details Last Updated DateTime 4 158.75 cm 37.8 kg/m2 39607.4 g 93 /min 98 % 98 % 122/86 mm[Hg] Darby Lazo MA [facility] 4 17:45:04 Date Recorded Body height Respiratory rate Body mass index (BMI) Body weight Oxygen saturation Oxygen saturation in Arterial blood by Pulse oximetry Heart rate Systolic And Diastolic Provider Name and Address Organization Details Last Updated DateTime 4 158.75 cm 20 /min 37.5 kg/m2 97794.9 3 g 97 % 97 % 97 /min 128/82 mm[Hg] Alonzo Pelletier MA [facility] 4 10:09:51 Date Recorded Body height Body mass index (BMI) Body weight Systolic And Diastolic Provider Name and Address Organization Details Last Updated DateTime 03/17/2022 158.75 cm 33.5 kg/m2 45274.18 g 112/82 mm[Hg] Linda Iglesias MA [facility] 03/17/2022 12:11:58 Social History Question Answer Notes LastModified by Organization Details LastModified Time Tobacco Smoking Status Never Smoker Linda Iglesias MA null, [facility] 01/20/2020 17:07:59 Do You Have An Advance Directive? No Information not available 09/27/2018 Animal Exposure? Yes Puppy (boxer Mix) Information not available 09/11/2014 Is Blood Transfusion Acceptable In An Emergency? Yes Information not available 09/27/2018 What Is Your Level Of Caffeine Consumption? Moderate Information not available 09/11/2014 How Much Tobacco Do You Chew? None Information not available 09/27/2018 In The 14 Days Before Symptom Onset, Have You Had Close Contact With A Laboratory-conf irmed COVID-19 While That Case Was Ill? No Information not available 02/26/2024 Have You Been To An Area Known To Be High Risk For COVID-19? No Information not available 02/26/2024 What Type Of Diet Are You Following? REGULAR Information not available 09/11/2014 Which Illicit Or Recreational Drugs Have You Used? Marijuana Information not available 01/20/2020 Education 12 Information not available 09/27/2018 What Is Your Home Situation? Mother Mom (Jayjay), 4 Siblings Information not available 09/11/2014 Live Alone Or With Others? With Others Lives With Mom [email or web address] Information not available 12/19/2018 Parent Involvement? Both Parents Involved Patient Chooses Not To See Dad Information not available 09/11/2014 What Was The Date Of Your Most Recent Tobacco Screening? 12/25/2024 Information not available 12/25/2024 How Many Children Do You Have? 0 Information not available 09/27/2018 Performs Monthly Self-breast Exam? Yes Information not available 09/27/2018 Do You Use Protection During Sex? No Information not available 09/27/2018 What Is Your Relationship Status? Single Information not available 09/27/2018 Do You Use Your Seat Belt Or Car Seat Routinely? Yes Information not available 09/29/2020 Seat Belts Used Routinely Yes Information not available 09/27/2018 Are You Sexually Active? Yes Information not available 09/27/2018 Do You Have Any Siblings? 4 Information not available 09/11/2014 Do You Have Smoke And Carbon Monoxide Detectors In Your Home? Yes Information not available 02/26/2024 Are You Passively Exposed To Smoke? No Information not available 09/11/2014 How Much Tobacco Do You Smoke? No Information not available 12/19/2018 General Stress Level Medium Information not available 09/27/2018 Do You Use Sunscreen Routinely? No Information not available 09/27/2018 Has Tobacco Cessation Counseling Been Provided? No [email or web address] Information not available 02/19/2024 On What Date Was Tobacco Cessation Counseling Provided? 12/25/2024 Information not available 12/25/2024 How Many Years Have You Smoked Tobacco? 0 [email or web address] Information not available 12/19/2018 Have You Used IV Drugs? No Information not available 09/29/2020 Year In School 11 Homes[employer] [email or web address] Inform ation not available 09/06/2017 Sex: Unknown Functional Status Question Answer Note LastModified by Organizat ion Details LastModified Time Do you use any illicit or recreational drugs? Yes marijuana Information not available 03/17/2022 Do you or have you ever used any other forms of tobacco or nicotine? No Information not available 09/29/2020 What is your level of alcohol consumption? None Information not available 09/27/2018 Do you or have you ever used smokeless tobacco? Never used smokeless tobacco Information not available 01/20/2020 Are you currently employed? 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 Never used electronic cigarettes Information not available 01/20/2020 What is your exercise level? Moderate [facility] Information not available 09/27/2018 Mental Status None recorded. Family History Relationship Description Onset Age of this Age Resolved Age Notes LastModified by Organization Details LastModified Time Paternal Uncle Diabetes mellitus [email or web address] Not available 2014 10:21:23 Maternal Grandmother Diabetes mellitus aparsley Not available 2014 10:21:23 Paternal Uncle Hypercholest erolemia [email or web address] Not available 2014 10:21:23 Sister Hypercholest erolemia apajuanpablo Not available 2014 10:21:23 Medical History Condition Response Other Y High Blood Pressure N Breast Cancer N Kidney or Bladder Problems N Thyroid Problems N Blood Clots N Lung Disease N Acne N Breast Problem N Anemia N Anesthesia Complications N Headaches/Migraines N Ovarian Cancer N Anxiety Disorder Y Muscle, Joint, or Bone Problems N Blood Transfusions N Seizures/Epilepsy N Polyps N Infertility N Acid Reflux (GERD) N Abuse/Domestic Violence N Asthma Y High Cholesterol N Hepatitis N Liver Disease N Heart Disease N Headaches Y Pre-Eclampsia N Osteoporosis N Gynecological History Statement/Question Response Flow Light Date of LMP 02/09/2022 STIs/STDs N HPV Vaccine Y Duration of Flow (days) Age at Menarche 11 Current Control Method IUD Sexually Active? Y Menses Monthly Y Date of Last Pap Smear 03/17/2022 Sexual Problems? N LMP Approximate Desired Control Method IUD Obstetrics History GPAL:G 0 P 0 0 0 0 Type Value Multiple Births 0 Full Term 0 Induced 0 Spontaneous 0 Premature 0 Living 0 Ectopics 0 Total 0 Immunizations Vaccine Type Date Status Note Provider Nam e and Address Organization Details Recorded Time DTaP 2 completed Not Available [facility] 12/25/2024 11:23:27 HPV, quadrivalent 3 completed Not Available [facility] 12/25/2024 11:23:27 meningococcal MCV4P 8 completed Not Available [facility] 08/03/2019 02:35:17 meningococcal B, OMV 8 completed Not Available [facility] 08/03/2019 02:35:21 DTP 0 completed Nunu [place], [place], [place] [facility] 10/31/2016 14:10:11 DTP 1 completed [place] [facility] 10/31/2016 14:10:15 DTP 1 completed [place] [facility] 10/31/2016 14:10:21 DTP 5 completed [place] [facility] 10/31/2016 14:10:27 Hib, unspecified formulation 0 completed [place] [facility] 10/31/2016 14:10:45 Hib, unspecified formulation 1 completed [place] [facility] 10/31/2016 14:10:50 Hib, unspecified formulation 1 completed [place] [facility] 10/31/2016 14:11:06 Hib, unspecified formulation 2 completed [place] [facility] 10/31/2016 14:11:12 Hep A, ped/adol, 2 dose 0 completed [place] [facility] 10/31/2016 14:11:26 Hep A, ped/adol, 2 dose 2 completed [place] [facility] 10/31/2016 14:11:32 Hep B, unspecified formulation 0 completed [place] [facility] 10/31/2016 14:11:45 Hep B, unspecified formulation 1 completed [place] [facility] 10/31/2016 14:11:49 Hep B, unspecified formulation 1 [place] [facility] 10/31/2016 14:11:55 HPV, unspecified formulation 2 completed [place] [facility] 10/31/2016 14:12:08 HPV, unspecified formulation 3 completed [place] [facility] 10/31/2016 14:12:14 influenza, unspecified formulation 8 completed [place] [facility] 10/31/2016 14:12:28 influenza, unspecified formulation 0 completed [place] [facility] 10/31/2016 14:12:32 influenza, unspecified formulation 3 completed [place] [facility] 10/31/2016 14:12:37 Novel [id number] 0 [place] [facility] 10/31/2016 14:12:57 MMR 1 [place] [facility] 10/31/2016 14:13:12 MMR 5 [place] [facility] 10/31/2016 14:13:17 meningococcal ACWY, unspecified formulation 2 completed [place]u [place] [facility] 10/31/2016 14:15:01 Pneumococcal conjugate PCV 13 0 completed [place] [facility] 10/31/2016 14:15:17 Pneumococcal conjugate PCV 13 1 completed [place] [facility] 10/31/2016 14:15:21 Pneumococcal conjugate PCV 13 1 completed [place] [facility] 10/31/2016 14:15:30 Pneumococcal conjugate PCV 13 2 completed [place] [facility] 10/31/2016 14:15:35 polio, unspecified formulation 0 completed YUNIEL Benoit, [place] - [facility] 10/31/2016 14:15:46 polio, unspecified formulation 1 completed YUNIEL Benoit, [place] - [facility] 10/31/2016 14:15:50 polio, unspecified formulation 2 completed YUNIEL Benoit, [place] - [facility] 10/31/2016 14:15:58 polio, unspecified formulation 5 completed YUNIEL Benoit, [place] - [facility] 10/31/2016 14:16:03 Tdap 2 completed YUNIEL Benoit, [place] - [facility] 10/31/2016 14:16:14 varicella 2 completed YUNIEL Benoit, [place] - [facility] 10/31/2016 14:16:25 varicella 2 completed YUNIEL Benoit, [place] - [facility] 10/31/2016 14:16:30 Past Encounters Encounter ID Performer Location Encounter Start Date Encounter Closed Date Diagnosis/Indication Diagnosis SNOMED-CT Code Diagnosis ICD10 Code Diagnosis IMO Codes Diagnosis Note [id number] DO Navya Brunner (Peds) [address] [place] [address] 09/11/2014 16:17:52 09/12/2014 13:16:12 Intermittent asthma 059731055 Asthma action plan given with form to give medication at school. Prescripti on for albuterol at school. RTC if still using daily in 1 week. Viral syndrome 681999337 W ell hydrated. Supportive care discussed. RTC if fever >5 days or symptoms worsen. Discussed signs of dehydratio n. Note given to return to school tomorrow if no fever or vomiting in 24 hours. 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 Called [facility] and spoke with Dr. Amos who recommends seeing ophthalmshayna lutz today. Patient will see Dr. Su this morning in clinic at [facility]. Gave mother directions . Will not initiate treatment until seen by ophthalmshayna lutz. Intermittent asthma 598541587 Symptoms improved. Reminded patient to bring Asthma Action Plan and inhaler to school when she returns. RTC if symptoms worsen. Viral syndrome 526489819 W ell hydrated. Symptoms improving. Supportive care discussed. May return to school when cleared by opthalmolo gy. RTC if symptoms worsen. [id number] DO Navya Brunner (Peds) [address] [place] [address] 11/17/2014 16:18:09 11/18/2014 09:37:58 Vaginal pain 73027808 Instructed patient not to have sexual activity until results back. [id number] MD Navya Parekh (Peds) [address] [place] [address] 09/06/2017 10:15:52 09/06/2017 14:47:10 Well child visit 670890265 Z00.129 Adolescent anticipato ry guidance discussed: Healthy diet, limiting sugary drinks, avoiding energy drinks, family meal times. 1 hour of physical activity a day. Limiting screen time to 2 hours a day (not including homework time). Dental exams and twice daily brushing. Discussed puberty and hormonal changes. Discussed dangers of drug, alcohol, and tobacco use. Safe Sex. Wearing seat belt in cars. Encourage reading, making sure child is taking responsibi lity for homework. Active or passive immunization 809814983 Z23 Diet education 65431532 Z71.3 Examinatio n for other specified condition 267005948 Z02.5 Mild persi stent asthma 320102513 J45.30 Increased asthma symptoms with albuterol use daily and nighttime wakenings. Will step up asthma therapy and reevaluate in 1 month. Asthma score of Atopic dermatitis 000696 01 L20.9 Areas of effected skin appear to have suffered from secondary infection with systemic herpetic infection. I would suggest having Anusha see a dermatolog ist to assess and treat possible herpetic eczema. She has had 3 outbreaks and with each one being in her eyes, her skin symptoms have increased. Major depr essive disorder 448612499 F32.9 After discussing with Anusha and her Mother is its agreed to initiate therapy for depression . She will be started on 50 mg of Zoloft daily. Mother reports that she has had success with this medication as well. Anusha is to start counseling and make this a part of her therapy regimen. Will check labs today as well to rule out other causes of fatigue and anhedonia. Discussed med side effects and increased risk of suicidal thoughts. Mother and Anusha agree with plan and verbalize understand ing. Childhood obesity 428747 003 Z68.54 Discussed the importance of starting an exercise routine. The goal would be to find something she enjoys doing and attempt to exercise at least 2-3 times a week to start. We discussed the importance of not skipping meals and choosing healthy food options. Less sweet drinks and less processed foods. 11/17/14 was max weight of 179 lbs, today anusha is 173lb. Weight loss could be related to depression . Will continue to follow weight and progress of lifestyle changes. Difficulty sleeping 3013 27875 Z72.820 Anusha reports trouble falling alseep at night. Discussed that both exercise and treatment of Depression could aid in improving this problem. Discussed good bedtime routine and hygeine. Discussed the importance of a daily routine as well. Anusha is home schooled and therefore doesnt have to get up at the same time everyday. I encouraged her to set up a daily routine anyway and try for consistenc y. May try Melatonin 30 min before bed. [id number] Arturo Juarez MD [facility] (Peds) [address] [place] [address] 10/04/2017 10:29:38 10/05/2017 15:13:14 Major depressive disorder 910637930 F32.9 Anusha was started on 50 mg of Zoloft on 09/06/17 and she and mother report improvemen t in mood and anxiety, still having 1-2 down days a week. Anusha is to start counseling and make this a part of her therapy regimen.Na frances was started on Vit D replacemen t as well for low Vit D of 6.7Discuss ed plan to increase zoloft dose to 100 mg daily. PHQ-9 from 09/06=11PHQ -9 today= 10Mother and Anusha agree with plan and verbalize understand ing. Atopic dermatitis 245412 01 L20.9 Continues to have pruritic eczema rash to most skin surface. Discussed now with remission of herpetic infection to use steriod cream to areas most affected. Take break after using for 14 days. May take benadryl at night to help with pruritis.w ould suggest having Anusha see a dermatolog ist to assess and treat possible herpetic eczema. (apt scheduled with cardinal samuel on 12/07/17)Adalberto cotton has had 3 outbreaks and with each one being in her eyes, her skin symptoms have increased. Overweight in childhood 339569676 Z68.54 Anusha up 3 lbs at todays apt from last month. Anusha denies starting a exercise routine. Discussed mother's interest in her starting boxing classes. This was encouraged but reminded that it is important for Anusha to choose something she enjoys doing. A1C was normal as well as lipids when drawn on 09/06/17. WIll continue to monitor. Some weight gain is expected with improved mood and appetite. Mild persi stent asthma 387053762 J45.30 Anusha reports significan t improvemen t in asthma symptoms. Has been taking Qvar 2 puffs twice daily and not needing to use rescue albuterol. Asthma score of 20 today in office. Will decrease Qvar to 1 puff twice a day and consider discontinu ing at follow up apt. Follow-up visit 90641825 9 Z09 Follow up for Depression , Asthma, weight, and skin issues [id number] Arturo Juarez MD [facility] (Peds) [address] [place] [address] 10/30/2017 10:21:51 10/30/2017 12:56:25 Major depressive disorder 983383714 F32.9 Anusha was increased on 100 mg of Zoloft on 10/04/17 and she and mother report improvemen t in mood and anxiety. Anusha is to start counseling and make this a part of her therapy regimen. Mother reports she has had a lot going on and dropped the ball on making an apt.Reinfo rced the danger of stopping medicaton abruptly and discussed treatment length of a minium of 6 months.Daisy cabrera agrees to take medication s and verbalized understand ing.. PHQ-9 from 09/06=11PHQ -9 from 10/04 =10PHQ-9 today =7Mother and Anusha agree with plan and verbalize understand ing. Mild inter mittent asthma 288942559 J45.20 Anusha reports significan t improvemen t in asthma symptoms. Has been taking Flovent 1 puff twice daily and not needing to use rescue albuterol. Asthma score of 21 today in office. Will discontinu e Flovent, but keep Montelukas t as mother and patient feel she gets relief and good controll with daily use. Instructed family if albuterol usage increases beyond 2 times per week for 2 weeks, it may been a sign of worsening control. Call office or go to ER for worsening cough, wheeze or work of breathing. Follow up in office in 3 months - family verbalized understand ing. [id number] MD Navya Polanco (LIBRARY SPECIALIST) [address] [place] [phone] 05/09/2018 11:29:35 05/10/2018 13:06:15 Family planning surveillance 517268329 Z30.09 Counseled patient about different forms of control methods including Condoms, OCPS, Depo Provera, Nuva ring, patch, Nexplanon, IUD, -- etc. she opted Deanna. counseled about risks and benefits of it and also return of fertility. safe sex counseling and advised to use condoms. Urine test negative today. Advised patient to make an appointmen t when she is on her period. Patient verbalized understand ing. Patient say she wanted OCP'S until the Deanna is in. . counseled about risks and benefits of it and also return of fertility. safe sex counseling and advised to use condoms Gynecologi c examination 10838436 Z01.419 Age appropriat e counseling done. Venereal d isease screening 520927366 Z11.3 Overweight 647293726 E66 .3 Counseled About weight loss, diet and excercise. Advised patient to f/u with melt room operator. Administra tion of influenza vaccine 58560785 Z23 Offerd. Patient refused. [id number] MD Navya Polanco (LIBRARY SPECIALIST) [address] [place] [address] 07/11/2018 15:47:16 07/11/2018 17:14:49 Insertion of intrauterine contraceptive device 21805850 Z30.430 Counseled about the procedure and its risks including infection, bleeding, damage to internal organs, indicated procedures . Patient verbalized understand ing. Consent signed which is in chart. Refer to procedure note. Advised patient to go to ER if bleeding more than a pad per hour, fever > 100.4, and severe pain. [id number] MD Navya Polanco (LIBRARY SPECIALIST) [address] [place] [address] 09/27/2018 15:24:59 09/27/2018 16:12:08 IUD check 327919553 Z30.431 IUD threads seen. Break-thro ugh bleeding 45738212 N92.1 The frequency and duration of unschedule d spotting decrease with continued use of IUD. offered non-steroi mesha antiinflam matory drug (NSAID) for 5 to 7 days. Notify to fill ibuprofen prescripti on. Venereal d isease screening 435209289 Z11.3 Patient refused blood work. [id number] MD Navya Erickson (LIBRARY SPECIALIST) [address] [place] [phone] 12/19/2018 14:40:40 12/21/2018 09:03:45 Family planning surveillance 854005049 Z30.09 Mirena IUD Surveillan ce of intrauterine device contraception done 9149354631 19405 Z30.40 Bacterial vaginosis 4197 06712 N76.0 Generalize d anxiety disorder 30919501 F41.1 Exposure t o sexually transmissible disorder 868581282 Z20.2 [id number] MD Navya Erickson (LIBRARY SPECIALIST) [address] [place] [address] 02/26/2019 10:04:43 02/28/2019 12:49:30 At increased risk of sexually transmitted infection 386470634 Z20.2 Family ulises nning surveillance 816621728 Z30.[address] reptococcus carrier 0478491068 103 Z22.330 Surveillan ce of intrauterine device contraception done 6854592487 Z30.40 Mirena IUD [id number] MD Navya Erickson [facility] (LIBRARY SPECIALIST) [address] [place] [address] 03/19/2019 12:05:29 03/20/2019 12:58:18 Replacement of intrauterine contraceptive device 50360056 Z30.433 NO URINALYSIS WAS DONE ON 03/19/2019 DUE TO NO U/A STRIPS IN OFFICE. MDS Family ulises nning surveillance 786436534 Z30.09 [id number] MYLENE MCGARRY (LIBRARY SPECIALIST) [address] [place] [address] 05/15/2019 12:18:09 05/15/2019 21:54:01 Intermittent asthma 510694251 J45.20 Patient with intermitte nt usage of albuterol to control symptoms. Change in weather/al lergies seem to be a trigger of symptoms. Will try treating allergies as well. Advised pt that if albuterol usage increases to more than 2x/week for 2 weeks, may need to start daily inhaled corticoste roids. Gastroesop hageal reflux disease without esophagitis 818976109 K21.9 Likely GERD. Burning epigastric abdominal pain with radiation up esophagus. Associated with spicy food and vomiting. Counseled pt that spicy food, acidic foods, and caffeine can make symptoms worse. Advised pt not to eat within 2 hours of going to bed and to stay sitting up after meals. Start Pepcid as below. RTC if symptoms do not improve. Allergic rhinitis 683301 04 J30.9 [id number] MD Navya Erickson (LIBRARY SPECIALIST) [address] [place] [address] 01/20/2020 16:33:57 01/21/2020 08:15:52 Surveillance of intrauterine device contraception done 0054568483 34072 Z30.40 Kyleena IUD Exposure t o sexually transmissible disorder 414177893 Z20.2 Family ulises nning surveillance 573054878 Z30.09 [id number] SHELIA ELY [address] [place] [address] 03/31/2020 10:42:17 04/01/2020 12:15:53 Suspected COVID-19 863349215 Z03.249 [id number] MD Navya Erickson [facility] (LIBRARY SPECIALIST) [address] [place] [address] 09/29/2020 10:08:12 10/12/2020 09:22:54 Abnormal uterine bleeding 3306141666 9100 N93.9 Family ulises nning surveillance 849935682 Z30.09 Surveillan ce of intrauterine device contraception done 9456166457 94627 Z30.40 Kyleena IUD [id number] MYLENE MCGARRY [facility] (LIBRARY SPECIALIST) [address] [place] [address] 10/09/2020 09:10:23 10/15/2020 10:00:02 Allergic rhinitis 32788698 J30.9 Change in weather/al lergies seem to be a trigger of asthma. RX for Flonase and cetirizine sent. Mild persi stent asthma 346256219 J45.30 Albuterol usage has increased to 4-5x weekly for greater than 2 weeks, will start daily inhaled corticoste roids (Flovent). Refilled Albuterol. [id number] MYLENE MCGARRY (LIBRARY SPECIALIST) [address] [place] [address] 10/13/2020 08:07:06 10/15/2020 11:31:39 Suspected COVID-19 384130036 Z20.828 Exposure to COVID-19, boyfriend' s Mom tested positive 10/11/20. Now pt symptomati c. Advised to complete COVID testing at [facility], orders placed. Mild persi stent asthma 189692517 J45.30 Using rescue inhaler 2-3x, wheezing after albuterol use. Recently started on Flovent 2 puffs 2x daily. Continue as prescribed . RX albuterol for nebulizer use. COVID testing as above. RTC if symptoms persist. ER precaution s discussed. [id number] MYLENE MCGARRY [facility] (LIBRARY SPECIALIST) [address] [place] [phone] 0 01/26/2021 16:08:25 02/11/2021 11:47:21 Surveillance of intrauterine device contraception done 3500038994 01029 Z30.40 Kyleena inserted 2019. Strings visualized on speculum exam with no signs of expulsion. Candidiasis of vagina 72 204319 B37.3 Juliano noted on exam, rx fluconazol e. Pain in pelvis 22117944 R10.2 PE unremarkab le. Follow up TVUS to assess proper IUD placement and for other causes of pelvic pain. [id number] MD Navya Cabral (Adult Med) [address] [place] [phone] 06/09/2021 12:22:22 06/11/2021 12:57:35 Intermittent asthma 947782915 J45.20 Restart singulair and continue Flovent. Discussed importance of inflammati on control [id number] MYLENE MCGARRY (LIBRARY SPECIALIST) [address] [place] [phone] 03/17/2022 11:43:16 03/23/2022 15:15:19 Gynecologic examination 32396845 Z01.419 21 y/o female who presents for first annual well women exam.- Discussed with patient the papanicola ou test and current guidelines . Walked patient through the procedure. - gynecologi c examinatio n was normal- Educated pt on how to perform SBE- Counseled regarding importance of physical activity, healthy diet and appropriat e calcium intake.- Return to clinic 1 year Surveillan ce of intrauterine device contraception done 6266617574 67408 Z30.40 - Pt confused on Kyleena IUD duration as she was told it had to be removed in 3 years.- Reassured patient that the Kyleena IUD is good for 5 years and will not need it replaced for another 2 years. Pt acknowledg es understand ing- Encouraged safe sexual practices and condom use, as control does not protect against STIs [id number] MD Navya Cabral (Adult Med) [address] [place] [phone] 02/01/2023 14:37:01 02/02/2023 15:38:31 Obesity 316628315 E66.9 Intermittent asthma 4276 97911 J45.20 [id number] MD Navya Cabral (Adult Med) [address] [place] [address] 02/19/2024 16:59:25 02/23/2024 20:21:19 Asthma 311105255 J45.798 [id number] MD Navya Mena (LIBRARY SPECIALIST) [address] [place] [address] 02/26/2024 09:59:41 03/07/2024 16:51:01 Contraception care management 820215916 Z30.8 Contemplat ing pregnancyR eviewed all forms of control with patient including risk factors and side effects. Counseled on STD transmissi on and prevention , condom use and prevention No nicotine/t obacco use or migraine headachesW ill start OCPCounsel ed on vitamin use Removal of intrauterine contraceptive device 1131883247 Z30.432 Tolerated wellCounse led patient on return of fertility [id number] MD Navya Cabral (Adult Med) [address] [place] [address] 12/25/2024 11:22:11 12/26/2024 09:45:46 Obese class I 0445804880 52793 E66.811 8131640732 Intermittent asthma 4276 47501 J45.20 Will check with OB re safe meds during pregnacy Health Concerns Section Related Observation LastModified by Organization Detai ls LastModified Time None Recorded Concern Status LastModified by Organization Details LastModified Time None Recorded Advance Directives Directive N: Payers Insurance Date Sequence Insurance Name Policy Number Policy Mejia Covered Member ID Mejia Member ID Guarantor Name 01/09/2025 1 [facility] - DOS ON OR AFTER 21 (MEDICAID REPLACEMENT - HMO) Anusha Mohan [id number] Anusha Mohan 01/14/2020 1 [employer] ([place]) [id number] Anusha Mohan [id number] Anusha Mohan 06/23/2020 1 *SELF PAY* Na frances Mohan 09/28/2020 SLIDING FEE SCHEDULE - DISCOUNT Anusha Mohan 01/21/2021 1 [facility] - DOS PRIOR TO 2021 (MEDICAID REPLACEMENT - HMO) Anusha Mohan [id number] Anusha Mohan 06/23/2020 [place]: [facility] [place] OF PUBLIC AID Anusha Mohan [id number] Anusha Mohan 04/08/2015 1 [facility] (MEDICAID HMO) [id number] Anusha Mohan [id number] Anusha Mohan 01/14/2020 1 [place] [facility] [place] [facility] A[facility] Anusha Mohan [id number] Anusha Mohan 04/08/2015 1 [place] [facility] [place] OF PUBLIC AID Anusha Mohan [id number] Anusha Mohan 11/08/2017 1 [place] [id number] Anusha Mohan [id number] Anusha Mohan Notes Date Note Type Note Provider Name and Address Organization Details Recorded Time 2 text/html Annual GYNReported by PatientGenitourinary symptomsFor menstrual cycle, patient reportsnormal menses. For urinary symptoms, patient reportsno hematuriaandno incontinence. For vulva, patient reportsno genital lesion. For vagina, patient reportsnormal vaginal discharge.Breast symptomsFor breast, patient reportsno breast pain,no breast lump, andno nipple discharge.ContraceptionFo r current contraception, patient reportsintrauterine device (iud).Endocrine symptomsFor sexual complaints, patient reportsno sexual complaints,no pain during intercourse, andnormal libido. For menopausal symptoms, patient reportsno menopausal symptomsandnormal vaginal lubrication.Psychological symptomsFor psychological symptoms, patient reportsno depression,no anxiety, andno pmdd.Preventative measuresFor preventive measures, patient reportsencourage self breast examination,encourage regular exercise,encourage no tobacco use, andencourage regular mammograms starting age 40. Anusha Mohan is a 21 year-old female with PMHx of asthma who presents for annual well women exam and control discussion. Pt was notified that she would need to remove her Kyleena IUD today, after having it implanted [address] Ornelas (03/19/19). Pt previously had a Mirena IUD placed a year prior to the Kyleena, but had it replaced to Kyleena due to abominal pains and bleeding side effects. Pt states that her cycles have still been regular, up until February. Due to the missed menstrual cycle, she took a test on February 28 that resulted as negative. Pt's last menstrual period was on January 18, 4 days in duration and described as normal. Pt admits to being sexually active with one partner and does not use a condom. MYLENE MCGARRY Attn: Accounting,[address] [facility], [place], [address], [place] [facility] 03/23/2022 15:12:42 3 text/html Wants her asthma medications refilled Luis Armando Freitas MD Attn: Accounting,[address] [facility], [place], [address], [place] [facility] 02/01/2023 15:07:16 4 text/html Here for asthma f/u. She has been using albuterol MDI frequently enough that she is running out. She misses montelukast dose frequently. 90 day rx was last filled at end of Jul 2023. Luis Armando Freitas MD Attn: Accounting,[address] [facility], [place], [address], [place] [facility] 02/19/2024 18:07:57 4 text/html ROS as noted in the HPI 23 yo F presents to clinic for IUD removal. Had Mirena for 3 years but got it removed because it was in the wrong place. Was removed in the office and replaced with Kyleena in 2019. Has had no issues with the Kyleena. Does have regular period with the kyleena. No pain or other concerns. Maybe would like to be sometime soon and wants to start the pill Jane Vidales MD Attn: Accounting,[address] [facility], [place], [address], [place] [facility] 03/04/2024 22:43:56 5 text/html Here for routine f/u . No new complaints. Seeing OB today for IUP Luis Armando Freitas MD Attn: Accounting,[address] [facility], [place], [address], [place] [facility] 12/25/2024 12:23:09 OBGyn Episode No OBEpisode recorded.
--- OUTSIDE RECORDS SUMMARY | 2025-05-22 18:43 | XMS_ITS | Clinical Summary ---
Author Organization [facility] Address [address] [place] [address] Care Team Providers Care Alternative Dispute Resolution Mediator Name Role Phone SusanneangelicaJil Cee JACOB Primary Care Provider [phone] Source Comments [facility],non-owned Affiliates and Associated Physician Practices is amultiple site organization consisting of ambulatory clinics and hospital sitesin [place], [place], [place] and [place]. This disclosure is being madepursuant to the Care Everywhere program and may not contain all information available regarding this patient. Last updated 18.[facility] [place] Allergies No known active allergies Medications * [...] on file Legal Sex Female 7:12 AM DIRECTOR OF COLLECTIONS AND ARCHIVES Gender Identity Not on file Sexual Orientation [...] Probe Negative Negative 12/08/2017 9:[address] [facility] GC Amplified Probe Negative Negative 12/08/2017 9:[address] [facility] Microbiology ENTIRE ENDOCERVIX / Unknown Collection / Unknown 12/07/2017 2:47 PM CDT 12/07/2017 5:07 PM CDT Narrative [facility] - 12/08/2017 9:43 AM CDT Results based on detection/no detection of ribosomal RNA by amplified method. us Johnny Broderick MD LAB - MICROBIOLOGY ORDERABLES Final Result [facility] [address] [place] [address], [facility] [phone] from Last 3 Months or Most Recently Relevant to Health Maintenance Insurance MEDICAID - OUT OF STATE [place] [facility] Advance Directives * Full Code (Latest Code Status on File) Date Activated Date Inactivated Comments 12/07/2017 8:46 PM 12/09/2017 12:54 PM Care Teams Alternative Dispute Resolution Mediator Relationship Specialty Start Date End Date Jil Solomon DO PCP - General Pediatrics 07/14/13
--- OUTSIDE RECORDS SUMMARY | 2025-05-22 18:43 | XMS_ITS | Encounter Summary ---
Author Organization [facility] Address [address] [place] [address] Care Team Providers Care Strategic Partnership Manager Name Role Phone Unavailable Primary Care Provider Unavailabl e Encounter Details Date Type Department Care Team (Latest Contact Info) Description 01/30/2004 Outpatient Historical [facility], [address] Chip Morrison MD NO ADDRESS ON FILE URIN TRACT INFECTION NOS (Primary Dx) Social History Tobacco Use Types Packs/Day Years Used Date Smoking Tobacco: Never Assessed Comments Unknown Sex and Gender Information Value Date Recorded Sex Assigned at Not on file Legal Sex Female 3:50 AM ORAL AND MAXILLOFACIAL PATHOLOGIST Gender Identity Not on file Sexual Orientation Not on file documented as of this encounter Plan of Treatment Not on file documented as of this encounter Visit Diagnoses Diagnosis Urinary tract infection, site not specified- Primary documented in this encounter
--- OUTSIDE RECORDS SUMMARY | 2025-05-22 18:43 | XMS_ITS | Encounter Summary ---
Author Organization [facility] Address [address] [place] [address] Care Team Providers Care Train Brakeman Name Role Phone Unavailable Primary Care Provider Unavailabl e Encounter Details Date Type Department Care Team (Late st Contact Info) Description 10/30/2001 Outpatient Historical [facility] Pediatrics - Medical [place] [address] [address] Chip Morrison MD NO ADDRESS ON FILE Social History Tobacco Use Types Packs/Day Years Used Date Smoking Tobacco: Never Assessed Comments Unknown Sex and Gender Information Value Date Recorded Sex Assigned at Not on file Legal Sex Female 3:50 AM TRANSMISSION SUPERVISOR Gender Identity Not on file Sexual Orientation Not on file documented as of this encounter Plan of Treatment Not on file documented as of this encounter Visit Diagnoses Not on filedocumented in this encounter
--- OUTSIDE RECORDS SUMMARY | 2025-05-22 18:43 | XMS_ITS | Encounter Summary ---
Author Organization [facility] Address [address] [place] [address] Care Team Providers Care Packing Tractor Machine Operator Name Role Phone Unavailable Primary Care Provider Unavailabl e Encounter Details Date Type Department Care Team (Late st Contact Info) Description 2000 Outpatient Historical [facility] [place] [address] [place] [address] Diaper or napkin rash (Primary Dx) Social History Tobacco Use Types Packs/Day Years Used Date Smoking Tobacco: Never Assessed Comments Unknown Sex and Gender Information Value Date Recorded Sex Assigned at Not on file Legal Sex Female 3:50 AM CHIEF OF ANESTHESIOLOGY Gender Identity Not on file Sexual Orientation Not on file documented as of this encounter Plan of Treatment Not on file documented as of this encounter Visit Diagnoses Diagnosis Diaper or napkin rash- Primary documented in this encounter
--- OUTSIDE RECORDS SUMMARY | 2025-05-22 18:43 | XMS_ITS | Encounter Summary ---
Author Organization [facility] Address [address] [place] [address] Care Team Providers Care Project Management Name Role Phone Unavailable Primary Care Provider Unavailabl e Encounter Details Date Type Department Care Team (Latest Contact Info) Description 2000 Outpatient Historical [facility] [place] [address] [place] [address] Need for prophylactic vaccination and inoculation against other combinations of diseases (Primary Dx) Social History Tobacco Use Types Packs/Day Years Used Date Smoking Tobacco: Never Assessed Comments Unknown Sex and Gender Information Value Date Recorded Sex Assigned at Not on file Legal Sex Female 3:50 AM DIRECTOR OF STRATEGIC MARKETING Gender Identity Not on file Sexual Orientation Not on file documented as of this encounter Plan of Treatment Not on file documented as of this encounter Visit Diagnoses Diagnosis Need for prophylactic vaccination and inoculation against other combinations of diseases- Primary documented in this encounter
--- OUTSIDE RECORDS SUMMARY | 2025-05-22 18:43 | XMS_ITS | Encounter Summary ---
Author Organization [facility] Address [address] [place] [address] Care Team Providers Care Health Data Analyst Name Role Phone Unavailable Primary Care Provider Unavailabl e Encounter Details Date Type Department Care Team (Late st Contact Info) Description 2000 Outpatient Historical [facility] Kiersten Schultz MD [address] [place] [address] Social History Tobacco Use Types Packs/Day Years Used Date Smoking Tobacco: Never Assessed Comments Unknown Sex and Gender Information Value Date Recorded Sex Assigned at Not on file Legal Sex Female 3:50 AM ENGINEERING ILLUSTRATOR Gender Identity Not on file Sexual Orientation Not on file documented as of this encounter Plan of Treatment Not on file documented as of this encounter Visit Diagnoses Not on filedocumented in this encounter
--- OUTSIDE RECORDS SUMMARY | 2025-05-22 18:43 | XMS_ITS | Encounter Summary ---
Author Organization [facility] Address [address] [place] [address] Care Team Providers Care Research Scientist Name Role Phone Unavailable Primary Care Provider Unavailabl e Encounter Details Date Type Department Care Team (Late st Contact Info) Description 09/18/2001 Outpatient Historical [facility] Pediatrics - Medical [place] [address] [address] Chip Morrison MD NO ADDRESS ON FILE Social History Tobacco Use Types Packs/Day Years Used Date Smoking Tobacco: Never Assessed Comments Unknown Sex and Gender Information Value Date Recorded Sex Assigned at Not on file Legal Sex Female 3:50 AM INGREDIENT SPECIALIST Gender Identity Not on file Sexual Orientation Not on file documented as of this encounter Plan of Treatment Not on file documented as of this encounter Visit Diagnoses Not on filedocumented in this encounter
--- OUTSIDE RECORDS SUMMARY | 2025-05-22 18:43 | XMS_ITS | Clinical Summary ---
Author Organization [facility] Address [address] [place] [address] Phone Care Team Providers Care Machine Repairer Name Role Phone Unavailable Primary Care [...] on file Legal Sex Female 3:50 AM STORE PROMOTER Gender Identity Not on file Sexual Orientation Not on file Last Filed Vital Signs Vital Sign Reading Time Taken Comments Blood Pressure 101/59 06/14/2018 5:14 PM STORE PROMOTER Pulse - - Temperature 36.9 C (98.4 F) 06/14/2018 5:14 PM STORE PROMOTER Respiratory Rate 16 06/14/2018 5:14 PM STORE PROMOTER Oxygen Saturation 97% 06/14/2018 5:14 PM STORE PROMOTER Inhaled Oxygen Concentration - - Weight 74.8 kg (165 lb) 06/14/2018 1:28 PM STORE PROMOTER Height 157.5 cm (5' 2) 06/14/2018 1:28 PM STORE PROMOTER Body Mass Index 30.18 06/14/2018 1:28 PM STORE PROMOTER Plan of Treatment Health Maintenance Due Date Last Done Comments HPV VACCINES (1 - 3-dose series) 2015 DTAP/TDAP/TD VACCINES (1 - Tdap) 2019 HEPATITIS B VACCINES (1 of 3 - 19+ 3-dose series) 12/2018 CERVICAL CANCER SCREENING 2021 HPV/Cotest (21-29) 2021 PAP SMEAR 2021 INFLUENZA VACCINE (#1) 2025
--- OUTSIDE RECORDS SUMMARY | 2025-05-22 18:43 | XMS_ITS | Encounter Summary ---
Author Organization [facility] Address [address] [place] [address] Care Team Providers Care Blood Collector Name Role Phone Unavailable Primary Care Provider Unavailabl e Encounter Details Date Type Department Care Team (Late st Contact Info) Description 01/30/2004 Outpatient Historical [facility] Pediatrics - [facility] [address] [address] Chip Morrison MD NO ADDRESS ON FILE Social History Tobacco Use Types Packs/Day Years Used Date Smoking Tobacco: Never Assessed Comments Unknown Sex and Gender Information Value Date Recorded Sex Assigned at Not on file Legal Sex Female 3:50 AM AGRICULTURAL EQUIPMENT TEST ENGINEER Gender Identity Not on file Sexual Orientation Not on file documented as of this encounter Plan of Treatment Not on file documented as of this encounter Visit Diagnoses Not on filedocumented in this encounter
--- OUTSIDE RECORDS SUMMARY | 2025-05-22 18:43 | XMS_ITS | Clinical Summary ---
Author Organization [facility] Address [address] [place] [address] Care Team Providers Care Internal Audit Consultant Name Role Phone Unavailable Primary Care Provider Unavailabl e Social History Tobacco Use Types Packs/Day Years Used Date Smoking Tobacco: Never Assessed Comments Unknown Sex and Gender Information Value Date Recorded Sex Assigned at Not on file Legal Sex Female 2:07 PM FILTER PULP WASHER Gender Identity Not on file Sexual [...]
--- OUTSIDE RECORDS SUMMARY | 2025-05-22 18:43 | XMS_ITS | Encounter Summary ---
Author Organization [facility] Address [address] [place] [address] Care Team Providers Care Roustabout Crew Leader Name Role Phone Unavailable Primary Care Provider Unavailabl e Encounter Details Date Type Department Care Team (Late st Contact Info) Description 2000 Outpatient Historical [facility] [place] [address] [place] [address] Single liveborn, born in hospital, delivered by delivery (Primary Dx) Social History Tobacco Use Types Packs/Day Years Used Date Smoking Tobacco: Never Assessed Comments Unknown Sex and Gender Information Value Date Recorded Sex Assigned at Not on file Legal Sex Female 3:50 AM CLINICAL TRIAL MANAGER Gender Identity Not on file Sexual Orientation Not on file documented as of this encounter Plan of Treatment Not on file documented as of this encounter Visit Diagnoses Diagnosis Single liveborn, born in hospital, delivered by delivery- Primary documented in this encounter
--- OUTSIDE RECORDS SUMMARY | 2025-05-22 18:43 | XMS_ITS | Encounter Summary ---
Author Organization [facility] Address [address] [place] [address] Care Team Providers Care High Worker Name Role Phone Unavailable Primary Care Provider Unavailabl e Encounter Details Date Type Department Care Team (Late st Contact Info) Description 2000 Outpatient Historical [facility] [place] [address] [place] [address] Single liveborn, born in hospital, delivered by delivery (Primary Dx) Social History Tobacco Use Types Packs/Day Years Used Date Smoking Tobacco: Never Assessed Comments Unknown Sex and Gender Information Value Date Recorded Sex Assigned at Not on file Legal Sex Female 3:50 AM SPECIAL DISTRIBUTION CLERK Gender Identity Not on file Sexual Orientation Not on file documented as of this encounter Plan of Treatment Not on file documented as of this encounter Visit Diagnoses Diagnosis Single liveborn, born in hospital, delivered by delivery- Primary documented in this encounter
--- OUTSIDE RECORDS SUMMARY | 2025-05-22 18:43 | XMS_ITS | Encounter Summary ---
Author Organization [facility] Address [address] [facility] Attn: Epic Prelude ADT [place] [address] Care Team Providers Care Globe Mounter Name Role Phone Unavailable Primary Care Provider Unavailabl e Encounter Details Date Type Department Care Team (Late st Contact Info) Description 2000 In[place] [address] [place] [address] Sunil Baker MD NO ADDRESS ON FILE Single liveborn, born in hospital, delivered by delivery (Primary Dx) Social History Tobacco Use Types Packs/Day Years Used Date Smoking Tobacco: Never Assessed Comments Unknown Sex and Gender Information Value Date Recorded Sex Assigned at Not on file Legal Sex Female 3:50 AM TELECOMMUNICATIONS LINESWORKER Gender Identity Not on file Sexual Orientation Not on file documented as of this encounter Plan of Treatment Not on file documented as of this encounter Visit Diagnoses Diagnosis Single liveborn, born in hospital, delivered by delivery- Primary documented in this encounter
--- OUTSIDE RECORDS SUMMARY | 2025-05-22 18:43 | XMS_ITS | Encounter Summary ---
Author Organization [facility] Address [address] [place] [address] Care Team Providers Care Food Services Manager Name Role Phone Unavailable Primary Care Provider Unavailabl e Encounter Details Date Type Department Care Team (Latest Contact Info) Description 10/30/2001 Outpatient Historical [facility] GLENDY Morrison, Chip Gutierrez MD NO ADDRESS ON FILE SCREENING-CONTAMINAT ION NEC (Primary Dx) Social History Tobacco Use Types Packs/Day Years Used Date Smoking Tobacco: Never Assessed Comments Unknown Sex and Gender Information Value Date Recorded Sex Assigned at Not on file Legal Sex Female 3:50 AM CONTROL AND RECOVERY COMBAT RESCUE Gender Identity Not on file Sexual Orientation Not on file documented as of this encounter Plan of Treatment Not on file documented as of this encounter Visit Diagnoses Diagnosis Screening for chemical poisoning and other contamination- Primary documented in this encounter
--- OUTSIDE RECORDS SUMMARY | 2025-05-22 18:43 | XMS_ITS | Encounter Summary ---
Author Organization [facility] Address [address] [place] [address] Care Team Providers Care Merchandise Adjustment Clerk Name Role Phone Unavailable Primary Care Provider Unavailabl e Encounter Details Date Type Department Care Team (Latest Contact Info) Description 03/21/[address] [facility] GLENDY Morrison, Chip Gutierrez MD NO ADDRESS ON FILE ROUTIN CHILD HEALTH EXAM (Primary Dx) Social History Tobacco Use Types Packs/Day Years Used Date Smoking Tobacco: Never Assessed Comments Unknown Sex and Gender Information Value Date Recorded Sex Assigned at Not on file Legal Sex Female 3:50 AM HUMIDIFIER MAINTENANCE WORKER Gender Identity Not on file Sexual Orientation Not on file documented as of this encounter Plan of Treatment Not on file documented as of this encounter Visit Diagnoses Diagnosis Routine infant or child health check- Primary documented in this encounter
--- OUTSIDE RECORDS SUMMARY | 2025-05-22 18:43 | XMS_ITS | Encounter Summary ---
Author Organization [facility] Address [address] [place] [address] Care Team Providers Care Cook Fishing Vessel Name Role Phone Unavailable Primary Care Provider Unavailabl e Encounter Details Date Type Department Care Team (Late st Contact Info) Description 03/21/2003 Outpatient Historical [facility] Pediatrics - [facility] [address] [address] Chip Morrison MD NO ADDRESS ON FILE Social History Tobacco Use Types Packs/Day Years Used Date Smoking Tobacco: Never Assessed Comments Unknown Sex and Gender Information Value Date Recorded Sex Assigned at Not on file Legal Sex Female 3:50 AM LEARNING ADMINISTRATOR Gender Identity Not on file Sexual Orientation Not on file documented as of this encounter Plan of Treatment Not on file documented as of this encounter Visit Diagnoses Not on filedocumented in this encounter
--- OUTSIDE RECORDS SUMMARY | 2025-05-22 18:43 | XMS_ITS | Encounter Summary ---
Author Organization [facility] Address [address] [place] [address] Care Team Providers Care Leave Coordinator Name Role Phone Unavailable Primary Care Provider Unavailabl e Encounter Details Date Type Department Care Team (Late st Contact Info) Description 2000 Outpatient Historical [facility] Kiersten Schultz MD [address] [place] [address] Routine infant or child health check (Primary Dx) Social History Tobacco Use Types Packs/Day Years Used Date Smoking Tobacco: Never Assessed Comments Unknown Sex and Gender Information Value Date Recorded Sex Assigned at Not on file Legal Sex Female 3:50 AM SECOND TIME WORKER Gender Identity Not on file Sexual Orientation Not on file documented as of this encounter Plan of Treatment Not on file documented as of this encounter Visit Diagnoses Diagnosis Routine or child health check- Primary documented in this encounter
--- OUTSIDE RECORDS SUMMARY | 2025-05-22 18:43 | XMS_ITS | Encounter Summary ---
Author Organization [facility] Address [address] [place] [address] Care Team Providers Care Steel Fixer Name Role Phone Jil Solomon DO Primary Care Provider [phone] Encounter Details Date Type Department Care Team (Late st Contact Info) Description 08/30/2017 Ophth Exam [facility] Pediatrics - Ophthalmology [address] [place] [address] Gibran Beyer MD [address] [place] [address] Social History Tobacco Use Types Packs/Day Years Used Date Smoking Tobacco: Never Smokeless Tobacco: Never Alcohol Use Standard Drinks/Week Comments No 0 (1 standard drink = 0.6 oz pur e alcohol) Comments Unknown Sex and Gender Information Value Date Recorded Sex Assigned at Not on file Legal Sex Female 7:12 AM DIGITAL PERFORMANCE ANALYST Gender Identity Not on file Sexual Orientation Not on file documented as of this encounter Plan of Treatment Not on file documented as of this encounter Visit Diagnoses Not on filedocumented in this encounter Care Teams Steel Fixer Relationship Specialty Start Date End Date Jil Solomon DO PCP - General Pediatrics 07/14/13 documented as of this encounter
--- OUTSIDE RECORDS SUMMARY | 2025-05-22 18:43 | XMS_ITS | Clinical Summary ---
Author Organization [facility] Address [facility] [place] [address] Care Team Providers Care Network Design Architect Name Role Phone Unavailable Primary Care [...]
--- NOTE | 2025-06-15 19:15 | P.PNOB_ITS ---
OB - Triage/Final Diagnosis Visit Information Comments/Additional reasons for admission: I have assessed the risk for this patient, Anusha Mohan, and determined that she would benefit from observation care. Evaluation Laboratory results: Laboratory Tests 05/22/25 05/22/25 05/22/25 10:37 12:17 16:45 WBC 10.5 H RBC 4.22 Hgb 12.0 Hct 35.3 L MCV 83.6 MCH 28.4 MCHC 34.0 RDW 13.2 Plt Count 254 MPV 10.7 H Immature Gran % (Auto) 1.0 H Neut % (Auto) 70.1 Lymph % (Auto) 19.8 [place] % (Auto) 7.0 Eos % (Auto) 1.8 Baso % (Auto) 0.3 Lymph # (Auto) 2.08 [place] # (Auto) 0.7 H Eos # (Auto) 0.2 Baso # (Auto) 0.0 Abs Immat Gran (auto) 0.11 H Absolute Neuts (auto) 7.4 H Absolute Nucleated RBC 0.000 Nucleated RBC % 0.0 Sodium 132 L Potassium 4.1 Chloride 103 Carbon Dioxide 23 Anion Gap 6 BUN 6 L Creatinine 0.59 L Estim Creat Clear Calc 134 Estimated GFR > 60 Glucose 90 Calcium 8.7 Total Bilirubin 0.3 AST 29 ALT 22 Alkaline Phosphatase 126 Total Protein 6.6 Albumin 3.3 L Urine Color Yellow Urine Appearance Clear Urine pH 7.0 Ur Specific [place] 1.016 Urine Protein Negative Urine Glucose (UA) Negative Urine Ketones Negative Ur Blood (Man) Negative Urine Nitrate Negative Urine Bilirubin Negative Urine Urobilinogen 0.2 Leukocyte Esterase Rfl Negative Fibronectin Negative Final Diagnosis (1) Abdominal pain: Code(s): R10.9 - Unspecified abdominal pain Status: Acute
== END 2025-05-22 18:09 | disposition home or self-care (01) ==
PROVIDERS: Obstetrics & Gynecology; Admitting Provider Obstetrics & Gynecology; PCP Internal Medicine Gastroenterology; Visit Provider Obstetrics & Gynecology
DX: O26.893 Other specified pregnancy related conditions, third trimester (principal); R10.9 Unspecified abdominal pain; Z3A.33 33 weeks gestation of pregnancy
CPT/HCPCS: 36415; 76705; 80053; 81003; 82731; 85025; 96372; A9270; G0378; G0379; J3105

== ENCOUNTER 2025-07-02 12:38 | Observation (INO) | payer OTHER, SELFPAY ==
[2025-07-02 14:00] VITALS: BMI 37.0
--- NOTE | 2025-07-02 14:31 | OBADM ---
This patient, Anusha Mohan, admitted to the OB room Labor/Delivery/Recovery 105 for observation. Patient/family oriented to hospital policies and general routines including ID bracelet, bed and alarms, visiting hours, pain management, procedures, bathroom and other care routines, personal items, smoking policy, room service/diet, and visiting hours. Patient/Family are encouraged to report perceived risks to care and to ask questions if they do not understand what they are told or what they should do.
--- OUTSIDE RECORDS SUMMARY | 2025-07-02 17:05 | XMS_ITS | Clinical Summary ---
Author Organization [facility] Address [address] [place] [address] Care Team Providers Care Corporate Coordinator Name Role Phone SusanneangelicaJil Cee JACOB Primary Care Provider [phone] Source Comments [facility],non-owned Affiliates and Associated Physician Practices is amultiple site organization consisting of ambulatory clinics and hospital sitesin [place], [place], [place] and [place]. This disclosure is being madepursuant to the Care Everywhere program and may not contain all information available regarding this patient. Last updated 18.[facility] Ludesi Allergies No known active allergies Medications * [...] on file Legal Sex Female 7:12 AM PAINTER DECORATOR Gender Identity Not on file Sexual Orientation [...] series) 2019 DEPRESSION SCREENING 07/17/2024 COVID-19 VACCINE (1 - 2024-2 6 season) 2025 INFLUENZA VACCINE (#1) 2025 ZOSTER [...] Probe Negative Negative 12/08/2017 9:43 AM CDT [facility] GC Amplified Probe Negative Negative 12/08/2017 9:43 AM CDT [facility] Microbiology ENTIRE ENDOCERVIX / Unknown Collection / Unknown 12/07/2017 2:47 PM CDT 12/07/2017 5:07 PM CDT Narrative [facility] - 12/08/2017 9:43 AM CDT Results based on detection/no detection of ribosomal RNA by amplified method. us Johnny Broderick MD LAB - MICROBIOLOGY ORDERABLES Final Result [facility] [address] [place] [address], [facility] [phone] from Last 3 Months or Most Recently Relevant to Health Maintenance Insurance MEDICAID - OUT OF STATE [place] - [place] [facility] Advance Directives * Full Code (Latest Code Status on File) Date Activated Date Inactivated Comments 12/07/2017 8:46 PM 12/09/2017 12:54 PM Care Teams Corporate Coordinator Relationship Specialty Start Date End Date Jil Solomon DO PCP - General Pediatrics 07/14/13
--- OUTSIDE RECORDS SUMMARY | 2025-07-02 17:05 | XMS_ITS | Continuity of Care Document ---
Author Organization [facility] Address [address] [place] [address] Assessment Encounter Date Assessment Date Assessment LastModified by Organization Details LastModified Time 05/15/2025 05/15/2025 Patient is ___weeks . Discussed plan. [email or web address] Not available 05/15/2025 16:26:14 Plan of Treatment Reminders Order Date Submit Date Provider Last Modified By Organization Details Last Modified Time Details Appointments OB ROUTINE 2024 03:15P Sandrita KENT MD Not available Not available Not available OB ROUTINE 2024 03:30P Sandrita KENT MD Not available Not available Not available Lab None recorded . Referral None recorded . Procedures None recorded . Surgeries None recorded . Imaging None recorded . Medication Orders None recorded . Patient TargetsNo targets recorded. Patient InstructionsNo instructions recorded. Reason for Referral None Reported. Results Created Date Observation Date Name Description Value Unit Range Abnormal Flag Note LastModifiedBy Organization Detail LastModifiedTime 01/25/2001/24/2025 CULTU RE: URINE result report SEE RESULT S BELOW Test: Cultu re: Urine Speci men Sourc e: Urine - Midst ream Speci men Type: Urine Speci men Date: 2024 1605 Resul t Date: 2024 Resul t Statu s: Final resul t Abnor mal: No Resul ting Lab: [facility] [address] [address] Tel: CULTU RE ----- ----- ----- --- No growt h in 1 day (dete ction level of 10,00 0 colon ies / ml.) Not Available [facility] (Lab) [address], [place], [address], 01/25/2025 22:30:24 04/18/20 25 04/18/2025 HEMAT OCRIT (HCT) HCT 35.3 % (based on docume nted legal sex) 34.0-4 5.0 Not Available [facility] (Lab) [address], [place], [address], 04/19/2025 11:56:39 04/18/20 25 04/18/2025 HEMOG LOBIN (HGB) HGB 11.9 g/dL (based on docume nted legal sex) 11.6-1 5.4 Not Available [facility] (Lab) [address], [place], [address], 04/19/2025 11:56:39 04/18/20 25 04/18/2025 GTT - GESTA EMILY L CHRIS N, ACOG OB glucose, 1 hour screen 89 mg/dL 70-135 Not Available [facility] (Lab) [address], [place], [address], 04/19/2025 11:56:39 04/18/2004/18/2025 HIV 1/2 ANTIG EN/AN TIBOD Y, REFLE X CONFI RMATI ON HIV antigen/anti body Nonrea ctive nonrea ctive HIV-1 antig en and HIV-1 /HIV- 2 antib odies were not detec franci. No labor atory evide nce of HIV infec tion. Not Available [facility] (Lab) [address], [place], [address], 04/19/2025 11:56:40 04/18/20 25 04/18/2025 RPR SCREE N, REFLE X TITER /CONF IRMAT ION RPR qualitative Nonrea ctive nonrea ctive Not Available [facility] (Lab) [address], [place], [address], 04/19/2025 11:56:40 02/19/20 25 02/18/2025 US, obste tric, 2nd or 3rd trime ster No observ ation record ed. [facility] [address], [place], [address], 02/18/2025 18:22:42 02/19/20 25 02/18/2025 US, obste tric, 2nd or 3rd trime ster No observ ation record ed. [email or web address] [address], [place], [address], 02/19/2025 17:40:42 05/15/20 25 05/15/2025 US, obste tric, follo w-up No observ ation record ed. [facility] [address], [place], [address], 05/15/2025 18:01:07 05/15/20 25 05/15/2025 US, obste tric, follo w-up No observ ation record ed. [email or web address] [address], [place], [address], 05/16/2025 11:28:46 05/22/20 25 05/22/2025 US, abdom en, limit ed No observ ation record ed. [place] [address], [place], [address], 06/04/2025 15:25:14 05/22/20 25 05/22/2025 US, abdom en No observ ation record ed. [address] [place] [address], [place], [address], 06/04/2025 15:24:46 06/10/20 25 06/10/2025 imagi ng/di agnos tic resul t No observ ation record ed. JAYDE [address], [place], [address], 06/11/2025 18:24:22 06/10/20 25 06/10/2025 US, obste tric, follo w-up No observ ation record ed. norris [place] [address], [place], [address], 06/10/2025 18:15:52 Result Notes None recorded. Problems Name Problem SNOMED Code Status Onset Date Resolution Date Notes Provider Name and Address Organization Details Recorded Time Rubella non-immun e 301449202 Active 2024 MMR vaccine pp Jessicadavid box, [facility] 10:05:31 Asthma 854604814 Active 2024 Shayna Davison CNM [address], [place], [address], [facility] 15:56:57 53130240 Active 2024 Rosa box, [facility] 15:33:14 Asthma 832580124 Active 2024 Shayna Davison CNM [address], [place], [address], [facility] 15:56:57 Body mass index 30+ - obesity 751812908 Active 2024 Starting BMI of around 32, 36 in the 3rd trimester . Thirty-tw o week growth ultrasoun d. Consider testing at 37 weeks Brian Caro MD [address], [place], [address], [facility] 17:54:15 Problem Notes None recorded. Procedures Surgical History Date Name Laterality Status Provider Name and Address Organization Details Recorded Time 12/25/2024 Date of Last Pap Smear completed Petra Dill [facility] 12/25/2024 19:40:01 Imaging Results None recorded. [...] completed Not Available Not Available Not Available nifedipine ER 30 mg tablet,exte nded release TAKE 1 TABLET BY MOUTH EVERY DAY active Not Available Not Available No t Available metoclopram fani 5 mg tablet TAKE [...] ON TONGUE AND DISSOLVE TWICE A DAY 2024 active Not Available Not Available Not Avai lable fluticasone propionate 110 mcg/actuati on HFA aerosol inhaler INHALE 2 PUFFS BY MOUTH TWICE A DAY active Not Available Not Available No t Available Lo-Zumandim ine (28) 3 mg-0.02 mg tablet TAKE 1 TABLET BY MOUTH EVERY DAY 01/24 completed Not Available Not Available Not Available Vitals Date Recorded Body weight Systolic And Diastolic Provider Name and Address Organization Details Last Updated DateTime 05/15/2025 08131.49641 g 118/77 mm[Hg] Ewa Joseph [facility] 05/15/2025 16:26:41 Social History Question Answer Notes LastModified by Organizat ion Details LastModified Time Tobacco Smoking Status Former Smoker Petra box, [facility] 12/25/2024 19:41:56 Do You Have An Advance Directive? No [email or web address] Information not available 12/25/2024 If You Are , What Was Your Level Of Alcohol Consumption Prior To ? Occasional [email or web address] Information not available 12/25/2024 Are You Blind Or Do You Have Difficulty Seeing? No [email or web address] Information not available 12/25/2024 What Is Your Level Of Caffeine Consumption? Occasional Information not available 12/25/2024 In The 14 Days Before Symptom Onset, Have You Had Close Contact With A Laboratory-confir med COVID-19 While That Case Was Ill? No [email or web address] Information not available 12/25/2024 In The 14 Days Before Symptom Onset, Have You Had Close Contact With A Person Who Is Under Investigation For COVID-19 While That Person Was Ill? No [email or web address] Information not available 12/25/2024 Have You Been To An Area Known To Be High Risk For COVID-19? No [email or web address] Information not available 12/25/2024 Are You Deaf Or Do You Have Serious Difficulty Hearing? No [email or web address] Information not available 12/25/2024 What Type Of Diet Are You Following? REGULAR [email or web address] Information not available 12/25/2024 What Is The Highest Grade Or Level Of School You Have Completed Or The Highest Degree You Have Received? [id number] [email or web address] Information not available 12/25/2024 Are There Any Guns Present In Your Home? No [email or web address] Information not available 12/25/2024 Do You Use Protection During Sex? No [email or web address] Information not available 12/25/2024 Do You Use Your Seat Belt Or Car Seat Routinely? Yes [email or web address] Information not available 12/25/2024 Do You Have Smoke And Carbon Monoxide Detectors In Your Home? Yes [email or web address] Information not available 12/25/2024 How Much Tobacco Do You Smoke? No [email or web address] Information not available 12/25/2024 Do You Use Sunscreen Routinely? Yes [email or web address] Information not available 12/25/2024 Has Tobacco Cessation Counseling Been Provided? No [email or web address] Information not available 12/25/2024 Have You Used IV Drugs? No [email or web address] Information not available 12/25/2024 Do You Have Difficulty Walking Or Climbing Stairs? No [email or web address] Information not available 12/25/2024 Sex: Unknown Functional Status Question Answer Note LastModified by Organizat ion Details LastModified Time Do you use any illicit or recreational drugs? No [email or web address] Information not available 12/25/2024 Do you or have you ever used any other forms of tobacco or nicotine? No [email or web address] Information not available 12/25/2024 What is your level of alcohol consumption? None [email or web address] Information not available 12/25/2024 Are you able to walk independently without assistance or assistive devices? YESWOREST [email or web address] Information not available 12/25/2024 Are you able to care for yourself independently? 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 No [email or web address] Information not available 12/25/2024 What is your exercise level? Occasional [email or web address] Information not available 12/25/2024 Mental Status Question Answer Note LastModified by Organization D etails LastModified Time Do you feel stressed (tense, restless, nervous, or anxious, or unable to sleep at night)? [id number] [email or web address] Information not available 12/25/2024 Family History Relationship Description Onset Age of this Age Resolved Age Notes LastModified by Organization Details LastModified Time Unspecified Relation Family history unknown [email or web address] Not available 12/25 15:33:59 Maternal Uncle Diabetes mellitus [email or web address] Not available 05/18 17:19:34 Medical History Condition Response Allergies (Food, seasonal, environmental ) Y Other N Drug/Latex Allergies/Reactions N Blood Transfusion N Breast Cancer N Dermatologic Disorders N Lung Disease N Defects or Inherited Disease N Breast Problem N Gestational Diabetes N Hematologic disorders N Anesthesia Complications N History of STI N Deep Vein Thrombosis N Polycystic ovary syndrome N Anxiety Disorder N Autoimmune disease N Arthritis N Polyps N Infertility N Acid Reflux (GERD) N History of abnormal pap N Cancer N Varicosities N Stroke N Neurologic/Epilepsy N Endometriosis N High Cholesterol N Fibromyalgia N Headaches N Kidney Disease N Heart Problems N Thyroid Problems N Kidney or Bladder Problems N GI Problems N Eating Disorder [...] ICD10 Code Diagnosis IMO Codes Diagnosis Note [id number] YESSY KENT MD [place] [address] [address] 04/18/2025 11:56:56 04/18/2025 12:41:40 Third trimester 71956535 Z34.03 [id number] - continue PNV- GCT and labs drawn today [id number] Brian Caro MD [place] [address] [address] 04/30/2025 16:51:14 05/01/2025 09:05:35 Third trimester 96128718 Z34.03 [id number] Brian Caro MD [place] [address] [address] 05/15/2025 15:29:36 05/15/2025 16:23:43 Observational assessment 313412004 Z03.74 Z3A.32 [id number] Brian Caro MD [place] [address] [address] 05/15/2025 15:29:46 05/15/2025 16:50:15 Third trimester 33063255 Z34.03 [id number] Health Concerns Section Related Observation LastModified by Organization Detai ls LastModified Time None Recorded Concern Status LastModified by Organization Details LastModified Time None Recorded Payers Encounter Date Sequence Insurance Name Policy Number Policy Mejia Covered Member ID Mejia Member ID Guarantor Name 05/15/2025 1 [facility] (MEDICAID REPLACEMENT - HMO) nAusha Mohan [id number] Anusha Mohan Notes Date Note Type Note Provider Name and Address Organization Details Recorded Time 05/15/2025 text/html Generic HPI TemplateReported by Patient Brian Caro MD [address], [place], [address], [facility] 05/15/2025 16:44:11 OBGyn Episode Ob Episode Information Episode Created Date Number of Fetuses Patient Bloodtype Patient rh Status Prepregnancy Weight lbs Domestic Partner Domestic Partner Phone Father Name Director Bioinformatics Status 01/25/20 25 1 O Positive 187 OPEN Fetus Data First Name Last Name Admitted to NICU Weight (g) Sex Living Outcome Pediatric Complications Fetus ID Race Codes Race Delivery Type [id number] Problems Problem Notes first - bASA daily Problem Name Start Date End Date Resolution Snomed Code Not e Asthma 01/24/2025 671515985 Body mass index 30+ - obesity 04/30/2025 622150279 Starting BMI of around 32, 36 in [...] Ultra Sound Latest Days Gestation 0 0 Pre-bharat Flowsheet Flowsheet Date 01/24/2025 Sherwood Score Blood Edema Fundus Height Fundus Units Glucose Ketones Leukocytes Nitrite Labor Signs Protein Cervic Dilation Cervic Effacement Cervic Station Type Weight in lbs Pre/Post Dialysis Refused 185.533142009293 BP Diastolic BP Location Tested BP Systolic [...] Weight in lbs Pre/Post Dialysis Refused Weight 188.917373070577 BP Diastolic BP Location Tested BP Systolic [...] Weight in lbs Pre/Post Dialysis Refused Weight 195.451552078526 BP Diastolic BP Location Tested BP Systolic [...] Weight in lbs Pre/Post Dialysis Refused Weight 203.275931960692 BP Diastolic BP Location Tested BP Systolic [...] Type Weight in lbs Pre/Post Dialysis Refused 204.386594724929 BP Diastolic BP Location Tested BP Systolic [...] Type Weight in lbs Pre/Post Dialysis Refused 209.190897635931 BP Diastolic BP Location Tested BP Systolic BP Type 77 L arm 118 sitting Fetus Heart Rate Present A 144 Fetus Movement A Yes Comments no complaints, no problems, routine care, no contractions, no vaginal bleeding, no loss of fluid, no cramping Flowsheet Date 05/30/2025 Sherwood Score Blood Edema Fundus Height Fundus Units Glucose Ketones Leukocytes Nitrite Labor Signs Protein Cervic Dilation Cervic Effacement Cervic Station Type Weight in lbs Pre/Post Dialysis Refused Weight 211.260460330995 BP Diastolic BP Location Tested BP Systolic BP Type 63 L arm 113 sitting Fetus Heart Rate Present A 145 Fetus Movement A Yes Comments Was seen at [facility] for pre term contractions, started on Procardia however was not dilated. Discussed stopping Procardia. Good movement. No bleeding. Will send Rx for breast pump and support band. Discussed preadmission. RTC 2 weeks. Flowsheet Date 06/10/2025 Sherwood Score Blood Edema Fundus Height Fundus Units Glucose Ketones Leukocytes Nitrite Labor Signs Protein Cervic Dilation Cervic Effacement Cervic Station Type Weight in lbs Pre/Post Dialysis Refused BP Diastolic BP Location Tested BP Systolic BP Type Fetus Heart Rate Present Fetus Movement Comments Flowsheet Date 06/10/2025 Sherwood Score Blood Edema Fundus Height Fundus Units Glucose Ketones Leukocytes Nitrite Labor Signs Protein Cervic Dilation Cervic Effacement Cervic Station Type Weight in lbs Pre/Post Dialysis Refused Weight 215.031350086097 BP Diastolic BP Location Tested BP Systolic BP Type 73 L arm 105 sitting Fetus Heart Rate Present A 146 Fetus Movement A Yes Comments Doing well, good movem ent. Completed preadmission today. EFW 43%, vertex, KELSEY wnl. GBS collected. RTC 1 week. Flowsheet Date 06/18/2025 Sherwood Score Blood Edema Fundus Height Fundus Units Glucose Ketones Leukocytes Nitrite Labor Signs Protein Cervic Dilation Cervic Effacement Cervic Station Type Weight in lbs Pre/Post Dialysis Refused Weight 215.400642859480 BP Diastolic BP Location Tested BP Systolic BP Type 72 L arm 112 sitting Fetus Heart Rate Present A 150 Fetus Movement A Yes Comments Good movement. Having some back pain, will try belly band. GBS neg. SVE 1cm. RTC 1 week Flowsheet Date 06/23/2025 Sherwood Score Blood Edema Fundus Height Fundus Units Glucose Ketones Leukocytes Nitrite Labor Signs Protein Cervic Dilation Cervic Effacement Cervic Station Type Weight in lbs Pre/Post Dialysis Refused Weight 220.230401047184 BP Diastolic BP Location Tested BP Systolic BP Type 85 L arm 126 sitting Fetus Heart Rate Present Fetus Movement A Yes Comments Good movement. More pe lvic pain and pressure. Irregular contractions, no bleeding. SVE 1cm. Labor precautions reviewed. RTC 1 week. Menstrual History Last Menstrual Date Menses Monthly [...]
--- OUTSIDE RECORDS SUMMARY | 2025-07-02 17:05 | XMS_ITS | Continuity of Care Document ---
Author Organization [facility] [place] Address [address] [place] [address] Assessment No assessment recorded. Plan of Treatment Reminders Order Date Submit [...] ting Lab: [facility] [address] [facility] [address] Tel: [phone] CULTU RE ----- ----- ----- --- No growt h in 1 day (dete ction level of 10,00 0 colon ies / ml.) Not Available [facility] (Lab) [address], [place], [address], 01/25/2025 22:30:24 04/18/20 25 04/18/2025 HEMAT OCRIT (HCT) HCT 35.3 % (based on docume nted legal sex) 34.0-4 5.0 Not Available [facility] (Lab) [address] [facility], [place], [address], 04/19/2025 11:56:39 04/18/20 25 04/18/2025 HEMOG LOBIN (HGB) HGB 11.9 g/dL (based on docume nted legal sex) 11.6-1 5.4 Not Available [facility] (Lab) [address] [facility], [place], [address], 04/19/2025 11:56:39 04/18/20 25 04/18/2025 GTT - GESTA EMILY L CHRIS N, ACOG OB glucose, 1 hour screen 89 mg/dL 70-135 Not Available [facility] (Lab) [address] [facility], [place], [address], 04/19/2025 11:56:39 04/18/20 25 04/18/2025 HIV 1/2 ANTIG EN/AN TIBOD Y, REFLE X CONFI RMATI ON HIV antigen/anti body Nonrea ctive nonrea ctive HIV-1 antig en and HIV-1 /HIV- 2 antib odies were not detec franci. No labor atory evide nce of HIV infec tion. Not Available [facility] (Lab) [address] [facility], [place], [address], 04/19/2025 11:56:40 04/18/20 25 04/18/2025 RPR SCREE N, REFLE X TITER /CONF IRMAT ION RPR qualitative Nonrea ctive nonrea ctive Not Available [facility] (Lab) [address] [facility], [place], [address], 04/19/2025 11:56:40 06/11/20 25 06/11/2025 CULTU RE: GROUP B STREP SCREE N, REFLE X SUSCE PTIBI LITY result report SEE RESULT S BELOW Test: Cultu re: Group B Strep , Refle x Susce ptibi lity ([facility]/ [facility] ) Speci men Sourc e: Vagin a/Rec bev Speci men Type: Vagin al/Re ctal Speci men Date: 06/11 0816 Resul t Date: 06/14 1140 Resul t Statu s: Final resul t Abnor mal: No Resul ting Lab: [facility] [address] [facility] [address] Tel: CULTU RE ----- ----- ----- --- No Group B strep isola franci at 2 days (eral ctive broth enhan cemen t) Not Available [facility] (Lab) [address] [facility], [place], [address], 06/14/2025 12:44:39 02/19/20 25 02/18/2025 US, obste tric, 2nd or 3rd trime ster No observ ation record ed. [facility] [address], [place], [address], 02/18/2025 18:22:42 02/19/20 25 02/18/2025 US, obste tric, 2nd or 3rd trime ster No observ ation record ed. [address], [place], [address], 02/19/2025 17:40:42 05/15/20 25 05/15/2025 US, obste tric, follo w-up No observ ation record ed. [facility] [address], [place], [address], 05/15/2025 18:01:07 05/15/20 25 05/15/2025 US, obste tric, follo w-up No observ ation record ed. [email or web address] [address], [place], [address], 05/16/2025 11:28:46 05/22/20 25 05/22/2025 US, abdom en, limit ed No observ ation record ed. [address] [facility] [address], [place], [address], 06/04/2025 15:25:14 05/22/20 25 05/22/2025 US, abdom en No observ ation record ed. [address] [facility] [address], [place], [address], 06/04/2025 15:24:46 06/10/20 25 06/10/2025 imagi ng/di agnos tic resul t No observ ation record ed. JAYDE [address], [place], [address], 06/11/2025 18:24:22 06/10/20 25 06/10/2025 US, obste tric, follo w-up No observ ation record ed. [facility] [address], [place], [address], 06/10/2025 18:15:52 Result Notes None recorded. Problems Name Problem SNOMED Code Status Onset Date Resolution Date Notes Provider Name and Address Organization Details Recorded Time Rubella non-immun e 231860759 Active 2024 MMR vaccine pp Jessica box, [facility] 5 10:05:31 Asthma 487090846 Active 2024 Shayna Davison CNM [address], [place], [address], [facility] 15:56:57 43632233 Active 2024 Rosa box, [facility] 15:33:14 Asthma 056745276 Active 2024 Shayna Davison CNM [address], [place], [address], [facility] 15:56:57 Body mass index 30+ - obesity 494547877 Active 2024 Starting BMI of around 32, 36 in the 3rd trimester . Thirty-tw o week growth ultrasoun d. Consider testing at 37 weeks Brian Caro MD [address], [place], [address], [facility] 17:54:15 Problem Notes None recorded. Procedures Surgical History Date Name Laterality Status Provider Name and Address Organization Details Recorded Time 12/25/2024 Date of Last Pap Smear completed Petra Dill [facility] 12/25/2024 19:40:01 Imaging Results None recorded. [...] and Address Organization Details Last Updated DateTime 06/18/2025 158.75 cm 38.7 kg/m2 22640.36 g 112/72 mm[Hg] Beatriz Early [facility] 06/18/2025 13:09:26 Social History Question Answer Notes LastModified by Organizat ion Details LastModified Time Tobacco Smoking Status Former Smoker Petra box, [facility] 12/25/2024 19:41:56 Do You Have An Advance Directive? No [email or web address] Information not available 12/25/2024 If You Are , What Was Your Level Of Alcohol Consumption Prior To ? Occasional [email or web address] Information not available 12/25/2024 Are You Blind Or Do You Have Difficulty Seeing? No [email or web address] Information not available 12/25/2024 What Is Your Level Of Caffeine Consumption? Occasional [email or web address] Information not available 12/25/2024 In The 14 Days Before Symptom Onset, Have You Had Close Contact With A Laboratory-confir med COVID-19 While That Case Was Ill? No [email or web address] Information not available 12/25/2024 In The 14 Days Before Symptom Onset, Have You Had Close Contact With A Person Who Is Under Investigation For COVID-19 While That Person Was Ill? No [email or web address] Information not available 12/25/2024 Have You Been To An Area Known To Be High Risk For COVID-19? No [email or web address] Information not available 12/25/2024 Are You Deaf Or Do You Have Serious Difficulty Hearing? No [email or web address] Information not available 12/25/2024 What Type Of Diet Are You Following? REGULAR [email or web address] Information not available 12/25/2024 What Is The Highest Grade Or Level Of School You Have Completed Or The Highest Degree You Have Received? [id number] [email or web address] Information not available 12/25/2024 Are There Any Guns Present In Your Home? No [email or web address] Information not available 12/25/2024 Do You Use Protection During Sex? No [email or web address] Information not available 12/25/2024 Do You Use Your Seat Belt Or Car Seat Routinely? Yes [email or web address] Information not available 12/25/2024 Do You Have Smoke And Carbon Monoxide Detectors In Your Home? Yes Information not available 12/25/2024 How Much Tobacco Do You Smoke? No [email or web address] Information not available 12/25/2024 Do You Use Sunscreen Routinely? Yes [email or web address] Information not available 12/25/2024 Has Tobacco Cessation Counseling Been Provided? No [email or web address] Information not available 12/25/2024 Have You Used IV Drugs? No [email or web address] Information not available 12/25/2024 Do You Have Difficulty Walking Or Climbing Stairs? No Information not available 12/25/2024 Sex: Unknown Functional Status Question Answer Note LastModified by Organizat ion Details LastModified Time Do you use any illicit or recreational drugs? No [email or web address] Information not available 12/25/2024 Do you or have you ever used any other forms of tobacco or nicotine? No [email or web address] Information not available 12/25/2024 What is your level of alcohol consumption? None [email or web address] Information not available 12/25/2024 Are you able to walk independently without assistance or assistive devices? YESWOREST [email or web address] Information not available 12/25/2024 Are you able to care for yourself independently? 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 No [email or web address] Information not available 12/25/2024 What is your exercise level? Occasional [email or web address] Information not available 12/25/2024 Mental Status Question Answer Note LastModified by Organization D etails LastModified Time Do you feel stressed (tense, restless, nervous, or anxious, or unable to sleep at night)? [id number] [email or web address] Information not available 12/25/2024 Family History Relationship Description Onset Age of this Age Resolved Age Notes LastModified by Organization Details LastModified Time Unspecified Relation Family history unknown [email or web address] Not available 12/25 15:33:59 Maternal Uncle Diabetes mellitus [email or web address] Not available 05/18 17:19:34 Medical History Condition Response Allergies (Food, seasonal, environmental ) Y Other N Breast Cancer N Drug/Latex Allergies/Reactions N Blood Transfusion N Dermatologic Disorders N Lung Disease N Defects or Inherited Disease N Breast Problem N Gestational Diabetes N Hematologic disorders N Anesthesia Complications N History of STI N Deep Vein Thrombosis N Polycystic ovary syndrome N Anxiety Disorder N Autoimmune disease N Arthritis N Infertility N Polyps N Acid Reflux (GERD) N History of abnormal pap N Cancer N Stroke N Varicosities N Neurologic/Epilepsy N Endometriosis N High Cholesterol N Headaches N Fibromyalgia N Kidney Disease N Heart Problems N [...] ICD10 Code Diagnosis IMO Codes Diagnosis Note [id number] YESSY KENT MD [place] [address],[place] [address] 05/30/2025 14:18:37 05/30/2025 16:00:35 Body mass index 30+ - obesity 183941525 E66.9 7800813 Asthma 462589111 J45.90 9 [id number] - well controlled Gestation period, 34 weeks 29972405 Z3A.34 5354513 - continue PNV [id number] YESSY KENT MD [place] [address],[place] [address] 06/10/2025 17:18:53 06/11/2025 08:25:12 Maternal obesity complicating , childbirth and the puerperium, antepartum 6202069878 07 O99.210 Z03.74 Z3A.35 [id number] 199004 YESSY KENT MD [place] [address],[place] [address] 06/10/2025 17:19:25 06/11/2025 08:24:29 Gestation period, 36 weeks 61888815 Z3A.36 6570036 Body mass index 30+ - obesity 885748532 E66.9 3581033 [id number] YESSY KENT MD [place] [address],[place] [address] 06/18/2025 12:57:50 06/18/2025 14:06:19 Third trimester 36333837 Z34.03 [id number] - continue PNV Health Concerns Section Related Observation LastModified by Organization Detai ls LastModified Time None Recorded Concern Status LastModified by Organization Details LastModified Time None Recorded Payers Encounter Date Sequence Insurance Name Policy Number Policy Mejia Covered Member ID Mejia Member ID Guarantor Name 06/18/2025 1 [facility] (MEDICAID REPLACEMENT - HMO) Anusha Mohan [id number] Anusha Mohan Notes Date Note Type Note Provider Name and Address Organization Details Recorded Time 06/18/2025 text/html Generic HPI TemplateReported by Patient MD [address], [place], [address], [place] [facility] 06/18/2025 14:04:42 OBGyn Episode Ob Episode Information Episode Created Date Number of Fetuses Patient Bloodtype Patient rh Status Prepregnancy Weight lbs Domestic Partner Domestic Partner Phone Father Name Yard Rigger Status 01/25/20 25 1 O Positive 187 OPEN Fetus Data First Name Last Name Admitted to NICU Weight (g) Sex Living Outcome Pediatric Complications Fetus ID Race Codes Race Delivery Type [id number] Problems Problem Notes first - bASA daily Problem Name Start Date End Date Resolution Snomed Code Not e Asthma 01/24/2025 [id number] Body mass index 30+ - obesity 04/30/2025 270171071 Starting BMI of around 32, 36 in [...] Type Weight in lbs Pre/Post Dialysis Refused 185.655822250895 BP Diastolic BP Location Tested BP Systolic [...] Weight in lbs Pre/Post Dialysis Refused Weight 188.689803947763 BP Diastolic BP Location Tested BP Systolic [...] Weight in lbs Pre/Post Dialysis Refused Weight 195.353666266294 BP Diastolic BP Location Tested BP Systolic [...] Weight in lbs Pre/Post Dialysis Refused Weight 203.328025312790 BP Diastolic BP Location Tested BP Systolic [...] Type Weight in lbs Pre/Post Dialysis Refused 204.399526477324 BP Diastolic BP Location Tested BP Systolic [...] Type Weight in lbs Pre/Post Dialysis Refused 209.163210711748 BP Diastolic BP Location Tested BP Systolic [...] Weight in lbs Pre/Post Dialysis Refused Weight 211.893162548818 BP Diastolic BP Location Tested BP Systolic BP Type 63 L arm 113 sitting Fetus Heart Rate Present A 145 Fetus Movement A Yes Comments Was seen at [place] for pre term contractions, started on Procardia [...] Weight in lbs Pre/Post Dialysis Refused Weight 215.565812936148 BP Diastolic BP Location Tested BP Systolic [...] Weight in lbs Pre/Post Dialysis Refused Weight 215.760144134734 BP Diastolic BP Location Tested BP Systolic [...] Weight in lbs Pre/Post Dialysis Refused Weight 220.212656772594 BP Diastolic BP Location Tested BP Systolic [...]
--- OUTSIDE RECORDS SUMMARY | 2025-07-02 17:05 | XMS_ITS | Continuity of Care Document ---
Author Organization [facility] [place] Address [address] [place] [address] Assessment No assessment recorded. Plan of Treatment [...] [facility] [address] [facility] [address] Tel: [phone] CULTU RE ----- ----- ----- --- No growt h in 1 day (dete ction level of 10,00 0 colon ies / ml.) Not Available [facility] (Lab) [address], [place], [address], 01/25/2025 22:30:24 04/18/20 25 04/18/2025 HEMAT OCRIT (HCT) HCT 35.3 % (based on docume nted legal sex) 34.0-4 5.0 Not Available [facility] (Lab) [address] [facility] [address], [place], [address], 04/19/2025 11:56:39 04/18/20 25 04/18/2025 HEMOG LOBIN (HGB) HGB 11.9 g/dL (based on docume nted legal sex) 11.6-1 5.4 Not Available [facility] (Lab) [address], [place], [address], 04/19/2025 11:56:39 04/18/20 25 04/18/2025 GTT - GESTA EMILY L CHRIS N, ACOG OB glucose, 1 hour screen 89 mg/dL 70-135 Not Available [facility] (Lab) [address], [place], [address], 04/19/2025 11:56:39 04/18/20 25 04/18/2025 HIV 1/2 ANTIG EN/AN TIBOD Y, REFLE X CONFI RMATI ON HIV antigen/anti body Nonrea ctive nonrea ctive HIV-1 antig en and HIV-1 /HIV- 2 antib odies were not detec franci. No labor atory evide nce of HIV infec tion. Not Available [facility] (Lab) [address], [place], [address], 04/19/2025 11:56:40 04/18/20 25 04/18/2025 RPR SCREE N, REFLE X TITER /CONF IRMAT ION RPR qualitative Nonrea ctive nonrea ctive Not Available [facility] (Lab) [address], [place], [address], 04/19/2025 11:56:40 02/19/20 25 02/18/2025 US, obste tric, 2nd or 3rd trime ster No observ ation record ed. [facility] [address], [place], [address], 02/18/2025 18:22:42 02/19/20 25 02/18/2025 US, obste tric, 2nd or 3rd trime ster No observ ation record ed. [email or web address] [address], [place], [address], 02/19/2025 17:40:42 05/15/20 25 05/15/2025 US, obste tric, follo w-up No observ ation record ed. [facility] [address], [place], [address], 05/15/2025 18:01:07 05/15/20 25 05/15/2025 US, obste tric, follo w-up No observ ation record ed. [email or web address] [address], [place], [address], 05/16/2025 11:28:46 05/22/2005/22/2025 US, abdom en, limit ed No observ ation record ed. [address] [facility], [place], [address], 06/04/2025 15:25:14 05/22/20 25 05/22/2025 US, abdom en No observ ation record ed. [address] [facility], [place], [address], 06/04/2025 15:24:46 06/10/20 25 06/10/2025 imagi ng/di agnos tic resul t No observ ation record ed. JAYDE [place] [address], [place], [address], 06/11/2025 18:24:22 06/10/20 25 06/10/2025 US, obste tric, follo w-up No observ ation record ed. [facility] [address], [place], [address], 06/10/2025 18:15:52 Result Notes None recorded. Problems Name Problem SNOMED Code Status Onset Date Resolution Date Notes Provider Name and Address Organization Details Recorded Time Rubella non-immun e 285676843 Active 2024 MMR vaccine pp Jessica Elena box, [facility] 10:05:31 Asthma 392845630 Active 2024 Shayna Davison CNM [address], [place], [address], [facility] 15:56:57 47116390 Active 2024 Rosa box, [facility] 15:33:14 Asthma 763344059 Active 2024 Shayna Davison, BERONICA [address], [place], [address], [facility] 15:56:57 Body mass index 30+ - obesity 049517791 Active 2024 Starting BMI of around 32, 36 in the 3rd trimester . Thirty-tw o week growth ultrasoun d. Consider testing at 37 weeks Brian Caro MD [address], [place], [address], [facility] 17:54:15 Problem Notes None recorded. Procedures Surgical History Date Name Laterality Status Provider Name and Address Organization Details Recorded Time 12/25/2024 Date of Last Pap Smear completed Petra Dill [facility] 12/25/2024 19:40:01 Imaging Results None recorded. [...] and Address Organization Details Last Updated DateTime 05/30/2025 158.75 cm 38 kg/m2 44246.99 g 113/63 mm[Hg] Beatriz Early [facility] 05/30/2025 14:27:10 Social History Question Answer Notes LastModified by Organizat ion Details LastModified Time Tobacco Smoking Status Former Smoker Petra Dill [facility], [facility] 12/25/2024 19:41:56 Do You Have An Advance Directive? No [email or web address] Information not available 12/25/2024 If You Are , What Was Your Level Of Alcohol Consumption Prior To ? Occasional [email or web address] Information not available 12/25/2024 Are You Blind Or Do You Have Difficulty Seeing? No [email or web address] Information not available 12/25/2024 What Is Your Level Of Caffeine Consumption? Occasional [email or web address] Information not available 12/25/2024 In The 14 Days Before Symptom Onset, Have You Had Close Contact With A Laboratory-confir med COVID-19 While That Case Was Ill? No Information not available 12/25/2024 In The 14 Days Before Symptom Onset, Have You Had Close Contact With A Person Who Is Under Investigation For COVID-19 While That Person Was Ill? No [email or web address] Information not available 12/25/2024 Have You Been To An Area Known To Be High Risk For COVID-19? No [email or web address] Information not available 12/25/2024 Are You Deaf Or Do You Have Serious Difficulty Hearing? No [email or web address] Information not available 12/25/2024 What Type Of Diet Are You Following? REGULAR [email or web address] Information not available 12/25/2024 What Is The Highest Grade Or Level Of School You Have Completed Or The Highest Degree You Have Received? HY11624-4 [email or web address] Information not available 12/25/2024 Are There Any Guns Present In Your Home? No [email or web address] Information not available 12/25/2024 Do You Use Protection During Sex? No [email or web address] Information not available 12/25/2024 Do You Use Your Seat Belt Or Car Seat Routinely? Yes [email or web address] Information not available 12/25/2024 Do You Have Smoke And Carbon Monoxide Detectors In Your Home? Yes [email or web address] Information not available 12/25/2024 How Much Tobacco Do You Smoke? No [email or web address] Information not available 12/25/2024 Do You Use Sunscreen Routinely? Yes [email or web address] Information not available 12/25/2024 Has Tobacco Cessation Counseling Been Provided? No [email or web address] Information not available 12/25/2024 Have You Used IV Drugs? No Information not available 12/25/2024 Do You Have Difficulty Walking Or Climbing Stairs? No [email or web address] Information not available 12/25/2024 Sex: Unknown Functional Status Question Answer Note LastModified by Organizat ion Details LastModified Time Do you use any illicit or recreational drugs? No [email or web address] Information not available 12/25/2024 Do you or have you ever used any other forms of tobacco or nicotine? No Information not available 12/25/2024 What is your level of alcohol consumption? None [email or web address] Information not available 12/25/2024 Are you able to walk independently without assistance or assistive devices? YESWOREST [email or web address] Information not available 12/25/2024 Are you able to care for yourself independently? 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 No [email or web address] Information not available 12/25/2024 What is your exercise level? Occasional [email or web address] Information not available 12/25/2024 Mental Status Question Answer Note LastModified by Organization D etails LastModified Time Do you feel stressed (tense, restless, nervous, or anxious, or unable to sleep at night)? [id number] [email or web address] Information not available 12/25/2024 Family History Relationship Description Onset Age of this Age Resolved Age Notes LastModified by Organization Details LastModified Time Unspecified Relation Family history unknown [email or web address] Not available 12/25 15:33:59 Maternal Uncle Diabetes [...] ICD10 Code Diagnosis IMO Codes Diagnosis Note [id number] Brian Caro MD [place] [address] [address] 04/30/2025 16:51:14 05/01/2025 09:05:35 Third trimester 46360992 Z34.03 [id number] Brian Caro MD [place] [address],[place] [address] 05/15/2025 15:29:36 05/15/2025 16:23:43 Observational assessment 052990440 Z03.74 Z3A.32 [id number] Brian Caro MD [place] [address],[place] [address] 05/15/2025 15:29:46 05/15/2025 16:50:15 Third trimester 46629518 Z34.03 [id number] YESSY KENT MD [place] [address],[place] [address] 05/30/2025 14:18:37 05/30/2025 16:00:35 Body mass index 30+ - obesity 564313039 E66.9 9197614 Asthma 330902122 J45.90 9 [id number] - well controlled Gestation period, 34 weeks 78974136 Z3A.34 4827511 - continue [facility] Concerns Section Related Observation LastModified by Organization Detai ls LastModified Time None Recorded Concern Status LastModified by Organization Details LastModified Time None Recorded Payers Encounter Date Sequence Insurance Name Policy Number Policy Mejia Covered Member ID Mejia Member ID Guarantor Name 05/30/2025 1 [facility] (MEDICAID REPLACEMENT - HMO) Anusha Mohan [id number] Anusha Caseyez Notes Date Note Type Note Provider Name and Address Organization Details Recorded Time 05/30/2025 text/html Generic HPI TemplateReported by Patient YESSY KENT MD [address], [place], [address], [facility] 05/30/2025 15:59:44 OBGyn Episode Ob Episode Information Episode Created Date Number of Fetuses Patient Bloodtype Patient rh Status Prepregnancy Weight lbs Domestic Partner Domestic Partner Phone Father Name Marble Finisher Status 01/25/20 25 1 O Positive 187 OPEN Fetus Data First Name Last Name Admitted to NICU Weight (g) Sex Living Outcome Pediatric Complications Fetus ID Race Codes Race Delivery Type [id number] Problems Problem Notes first - bASA daily Problem Name Start Date End Date Resolution Snomed Code Not e Asthma 01/24/2025 451544586 Body mass index 30+ - obesity 04/30/2025 356373685 Starting BMI of around 32, 36 in [...] Type Weight in lbs Pre/Post Dialysis Refused 185.174130589498 BP Diastolic BP Location Tested BP Systolic [...] Weight in lbs Pre/Post Dialysis Refused Weight 188.952056114461 BP Diastolic BP Location Tested BP Systolic [...] Weight in lbs Pre/Post Dialysis Refused Weight 195.504053125414 BP Diastolic BP Location Tested BP Systolic [...] Weight in lbs Pre/Post Dialysis Refused Weight 203.315846728891 BP Diastolic BP Location Tested BP Systolic [...] Type Weight in lbs Pre/Post Dialysis Refused 204.654341648122 BP Diastolic BP Location Tested BP Systolic [...] Type Weight in lbs Pre/Post Dialysis Refused 209.988408508703 BP Diastolic BP Location Tested BP Systolic [...] Weight in lbs Pre/Post Dialysis Refused Weight 211.276132721272 BP Diastolic BP Location Tested BP Systolic BP Type 63 L arm 113 sitting Fetus Heart Rate Present A 145 Fetus Movement A Yes Comments Was seen at [facility] for pre term contractions, started on Procardia [...] Weight in lbs Pre/Post Dialysis Refused Weight 215.921997285315 BP Diastolic BP Location Tested BP Systolic [...] Weight in lbs Pre/Post Dialysis Refused Weight 215.587794055218 BP Diastolic BP Location Tested BP Systolic [...] Weight in lbs Pre/Post Dialysis Refused Weight 220.843744257287 BP Diastolic BP Location Tested BP Systolic [...]
--- OUTSIDE RECORDS SUMMARY | 2025-07-02 17:05 | XMS_ITS | Continuity of Care Document ---
Author Organization [facility] [place] Address [address] [place] [address] [place] [address] Assessment No assessment recorded. Plan of Treatment [...] recorded . Surgeries None recorded . Imaging US, obstetri c, follow-u p 2024 025 [email or web address] [address], [address], [place], [address], 06/11/2025 16:32:31 Medication Orders None recorded . Patient TargetsNo [...] men Date: 2024 1605 Resul t Date: 20247 Resul t Statu s: Final resul t Abnor mal: No Resul ting Lab: [facility] [address] [facility] [address] Tel: CULTU RE ----- ----- ----- --- No growt h in 1 day (dete ction level of 10,00 0 colon ies / ml.) Not Available [facility] (Lab) [address], [place], [address], 01/25/2025 22:30:24 04/18/2004/18/2025 HEMAT OCRIT (HCT) HCT 35.3 % (based on docume nted legal sex) 34.0-4 5.0 Not Available [facility] (Lab) [address], [place], [address], 04/19/2025 11:56:39 04/18/2004/18/2025 HEMOG LOBIN (HGB) HGB 11.9 g/dL (based on docume nted legal sex) 11.6-1 5.4 Not Available [facility] (Lab) [address] [place], [address], 04/19/2025 11:56:39 04/18/20 25 04/18/2025 GTT - GESTA EMILY L CHRIS Rod, ACOG OB glucose, 1 hour screen 89 mg/dL 70-135 Not Available [facility] (Lab) [address] [place], [address], 04/19/2025 11:56:39 04/18/2004/18/2025 HIV 1/2 ANTIG EN/AN TIBOD Y, REFLE X CONFI RMATI ON HIV antigen/anti body Nonrea ctive nonrea ctive HIV-1 antig en and HIV-1 /HIV- 2 antib odies were not detec franci. No labor atory evide nce of HIV infec tion. Not Available [facility] (Lab) [address] [place], [address], 04/19/2025 11:56:40 04/18/20 25 04/18/2025 RPR SCREE N, REFLE X TITER /CONF IRMAT ION RPR qualitative Nonrea ctive nonrea ctive Not Available [facility] (Lab) [address], [place], [address], 04/19/2025 11:56:40 02/19/20 25 02/18/2025 US, obste tric, 2nd or 3rd trime ster No observ ation record ed. [facility] [address], [place], [address], 02/18/2025 18:22:42 02/19/20 25 02/18/2025 US, obste tric, 2nd or 3rd trime ster No observ ation record ed. [email or web address] Lucretia [address], [place], [address], 02/19/2025 17:40:42 05/15/20 25 05/15/2025 US, obste tric, follo w-up No observ ation record ed. [facility] [address], [place], [address], 05/15/2025 18:01:07 05/15/20 25 05/15/2025 US, obste tric, follo w-up No observ ation record ed. [email or web address] Lucretia [address], [place], [address], 05/16/2025 11:28:46 05/22/20 25 05/22/2025 US, abdom en, limit ed No observ ation record ed. [address] [facility], [place], [address], 06/04/2025 15:25:14 05/22/20 25 05/22/2025 US, abdom en No observ ation record ed. [address], [place], [address], 06/04/2025 15:24:46 06/10/20 25 06/10/2025 imagi ng/di agnos tic resul t No observ ation record ed. JAYDE Lucretia [address], [place], [address], 06/11/2025 18:24:22 06/10/20 25 06/10/2025 US, obste tric, follo w-up No observ ation record ed. [facility] [address], [place], [address], 06/10/2025 18:15:52 Result Notes None recorded. Problems Name Problem SNOMED Code Status Onset Date Resolution Date Notes Provider Name and Address Organization Details Recorded Time Rubella non-immun e 347186608 Active 2024 MMR vaccine pp Jessica box, [facility] 10:05:31 Asthma 818904894 Active 2024 Shayna Davison CNM [address], [place], [address], [facility] 15:56:57 11769549 Active 2024 Rosa box, [facility] 15:33:14 Asthma 843295413 Active 2024 Shayna Davison, BERONICA [address], [place], [address], [facility] 15:56:57 Body mass index 30+ - obesity 911080685 Active 2024 Starting BMI of around 32, 36 in the 3rd trimester . Thirty-tw o week growth ultrasoun d. Consider testing at 37 weeks Brian Caro MD [address], [place], [address], [facility] 17:54:15 Problem Notes None recorded. Procedures Surgical History Date Name Laterality Status Provider Name and Address Organization Details Recorded Time 12/25/2024 Date of Last Pap Smear completed Petra Dill [facility] 12/25/2024 19:40:01 Imaging Results None [...] and Address Organization Details Last Updated DateTime 06/10/2025 158.75 cm 38.7 kg/m2 04460.36 g 105/73 mm[Hg] Beatriz Sharath [facility] 06/10/2025 18:02:37 Social History Question Answer Notes LastModified by Organizat ion Details LastModified Time Tobacco Smoking Status Former Smoker Petra Dill isauro, [facility] 12/25/2024 19:41:56 Do You Have An Advance Directive? No [email or web address] Information not available 12/25/2024 If You Are , What Was Your Level Of Alcohol Consumption Prior To ? Occasional [email or web address] Information not available 12/25/2024 Are You Blind Or Do You Have Difficulty Seeing? No [email or web address] Information not available 12/25/2024 What Is Your Level Of Caffeine Consumption? Occasional [email or web address] Information not available 12/25/2024 In The 14 Days Before Symptom Onset, Have You Had Close Contact With A Laboratory-confir med COVID-19 While That Case Was Ill? No [email or web address] Information not available 12/25/2024 In The 14 Days Before Symptom Onset, Have You Had Close Contact With A Person Who Is Under Investigation For COVID-19 While That Person Was Ill? No [email or web address] Information not available 12/25/2024 Have You Been To An Area Known To Be High Risk For COVID-19? No [email or web address] Information not available 12/25/2024 Are You Deaf Or Do You Have Serious Difficulty Hearing? No [email or web address] Information not available 12/25/2024 What Type Of Diet Are You Following? REGULAR [email or web address] Information not available 12/25/2024 What Is The Highest Grade Or Level Of School You Have Completed Or The Highest Degree You Have Received? PS56505-0 [email or web address] Information not available 12/25/2024 Are There Any Guns Present In Your Home? No [email or web address] Information not available 12/25/2024 Do You Use Protection During Sex? No [email or web address] Information not available 12/25/2024 Do You Use Your Seat Belt Or Car Seat Routinely? Yes [email or web address] Information not available 12/25/2024 Do You Have Smoke And Carbon Monoxide Detectors In Your Home? Yes [email or web address] Information not available 12/25/2024 How Much Tobacco Do You Smoke? No [email or web address] Information not available 12/25/2024 Do You Use Sunscreen Routinely? Yes Information not available 12/25/2024 Has Tobacco Cessation Counseling Been Provided? No [email or web address] Information not available 12/25/2024 Have You Used IV Drugs? No [email or web address] Information not available 12/25/2024 Do You Have Difficulty Walking Or Climbing Stairs? No [email or web address] Information not available 12/25/2024 Sex: Unknown Functional Status Question Answer Note LastModified by Organizat ion Details LastModified Time Do you use any illicit or recreational drugs? No [email or web address] Information not available 12/25/2024 Do you or have you ever used any other forms of tobacco or nicotine? No [email or web address] Information not available 12/25/2024 What is your level of alcohol consumption? None [email or web address] Information not available 12/25/2024 Are you able to walk independently without assistance or assistive devices? YESWOREST [email or web address] Information not available 12/25/2024 Are you able to care for yourself independently? 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 No [email or web address] Information not available 12/25/2024 What is your exercise level? Occasional [email or web address] Information not available 12/25/2024 Mental Status Question Answer Note LastModified by Organization D etails LastModified Time Do you feel stressed (tense, restless, nervous, or anxious, or unable to sleep at night)? [id number] [email or web address] Information not available 12/25/2024 Family History Relationship Description Onset Age of this Age Resolved Age Notes LastModified by Organization Details LastModified Time Unspecified Relation Family history unknown [email or web address] Not available 12/25 15:33:59 Maternal Uncle Diabetes mellitus [email or web address] Not available 05/18 17:19:34 Medical History Condition Response Other N Blood Transfusion N Dermatologic Disorders N Gestational Diabetes N Anxiety Disorder N Autoimmune disease N Arthritis N Polyps N Infertility N Acid Reflux (GERD) N Cancer N Varicosities N Stroke N Neurologic/Epilepsy N Fibromyalgia N Headaches N Kidney Disease N Heart Problems N Kidney or Bladder Problems N Eating Disorder N Art (IVF or FET) N Hepatitis/Liver Disease N No Past Medical History N Urinary Tract Infection N Asthma Y Trauma/Violence N Thrombophilias N Allergies (Food, seasonal, environmental ) Y Breast Cancer N Drug/Latex Allergies/Reactions N Lung Disease N Defects or Inherited Disease N Breast Problem N Hematologic disorders N Anesthesia Complications N History of STI N Deep Vein Thrombosis N Polycystic ovary syndrome N History of abnormal pap N Endometriosis N High Cholesterol N Thyroid Problems N GI Problems N Anemia N Psychiatric Illness N Ovarian Cancer N Diabetes N Pulmonary (TB, Asthma) N Eczema N Abuse/Domestic Violence N Depression/ depression N Heart Disease N Pre-Eclampsia N Hypertension N Osteoporosis N Gynecological History Statement/Question Response Date of [...] ICD10 Code Diagnosis IMO Codes Diagnosis Note [id number] Brian Caro MD [facility] [address] [address] 05/15/2025 15:29:36 05/15/2025 16:23:43 Observational assessment 296937728 Z03.74 Z3A.32 7042499 [id number] Brian Caro MD [facility] [address] [address] 05/15/2025 15:29:46 05/15/2025 16:50:15 Third trimester 97967604 Z34.03 [id number] YESSY KENT MD [facility] [address],[place] [address] 05/30/2025 14:18:37 05/30/2025 16:00:35 Body mass index 30+ - obesity 796350481 E66.9 3872033 Asthma 585298627 J45.90 9 3314125610 - well controlled Gestation period, 34 weeks 82362515 Z3A.34 9757391 - continue PNV [id number] YESSY KENT MD [facility] [address],[place] [address] 06/10/2025 17:18:53 06/11/2025 08:25:12 Maternal obesity complicating , childbirth and the puerperium, antepartum 6190688625 07 O99.210 Z03.74 Z3A.35 [id number] YESSY KENT MD [facility] [address],[place] [address] 06/10/2025 17:19:25 06/11/2025 08:24:29 Gestation period, 36 weeks 29908078 Z3A.36 4865161 Body mass index 30+ - obesity 896296388 E66.9 1069953 Health Concerns Section Related Observation LastModified by Organization Detai ls LastModified Time None Recorded Concern Status LastModified by Organization Details LastModified Time None Recorded Payers Encounter Date Sequence Insurance Name Policy Number Policy Mejia Covered Member ID Mejia Member ID Guarantor Name 06/10/2025 1 [facility] (MEDICAID REPLACEMENT - HMO) Anusha Mohan [id number] Anusha Mohan Notes Date Note Type Note Provider Name and Address Organization Details Recorded Time 06/10/2025 text/html Generic HPI TemplateReported by Patient YESSY KENT MD [address], [place], [address], [facility] 06/10/2025 18:13:59 OBGyn Episode Ob Episode Information Episode Created Date Number of Fetuses Patient Bloodtype Patient rh Status Prepregnancy Weight lbs Domestic Partner Domestic Partner Phone Father Name Assembly Leader Status 01/25/20 25 1 O Positive 187 OPEN Fetus Data First Name Last Name Admitted to NICU Weight (g) Sex Living Outcome Pediatric Complications Fetus ID Race Codes Race Delivery Type [id number] Problems Problem Notes first - bASA daily Problem Name Start Date End Date Resolution Snomed Code Not e Asthma 01/24/2025 [id number] Body mass index 30+ - obesity 04/30/2025 563897999 Starting BMI of around 32, 36 in [...] Type Weight in lbs Pre/Post Dialysis Refused 185.509006283144 BP Diastolic BP Location Tested BP Systolic [...] Weight in lbs Pre/Post Dialysis Refused Weight 188.333566211195 BP Diastolic BP Location Tested BP Systolic [...] Weight in lbs Pre/Post Dialysis Refused Weight 195.947888138722 BP Diastolic BP Location Tested BP Systolic [...] Weight in lbs Pre/Post Dialysis Refused Weight 203.405838627127 BP Diastolic BP Location Tested BP Systolic [...] Type Weight in lbs Pre/Post Dialysis Refused 204.271485225783 BP Diastolic BP Location Tested BP Systolic [...] Type Weight in lbs Pre/Post Dialysis Refused 209.410926444336 BP Diastolic BP Location Tested BP Systolic [...] Weight in lbs Pre/Post Dialysis Refused Weight 211.846239537339 BP Diastolic BP Location Tested BP Systolic BP Type 63 L arm 113 sitting Fetus Heart Rate Present A 145 Fetus Movement A Yes Comments Was seen at [facility] for pre term contractions, started on Procardia [...] Weight in lbs Pre/Post Dialysis Refused Weight 215.791607048683 BP Diastolic BP Location Tested BP Systolic [...] Weight in lbs Pre/Post Dialysis Refused Weight 215.025581219301 BP Diastolic BP Location Tested BP Systolic [...] Weight in lbs Pre/Post Dialysis Refused Weight 220.563399979839 BP Diastolic BP Location Tested BP Systolic [...]
--- OUTSIDE RECORDS SUMMARY | 2025-07-02 17:05 | XMS_ITS | Encounter Summary ---
Author Organization [facility] Address [address] [place] [address] Care Team Providers Care Rate Inserter Name Role Phone Unavailable Primary Care Provider Unavailabl e Encounter Details Date Type Department Care Team (Latest Contact Info) Description 01/30/2004 Outpatient Historical [facility], [address] Chip Morrison MD NO ADDRESS ON FILE URIN TRACT INFECTION NOS (Primary Dx) Social History Tobacco Use Types Packs/Day Years Used Date Smoking Tobacco: Never Assessed Comments Unknown Sex and Gender Information Value Date Recorded Sex Assigned at Not on file Legal Sex Female 3:50 AM CRAYON SAWYER Gender Identity Not on file Sexual Orientation Not on file documented as of this encounter Plan of Treatment Not on file documented as of this encounter Visit Diagnoses Diagnosis Urinary tract infection, site not specified- Primary documented in this encounter
--- OUTSIDE RECORDS SUMMARY | 2025-07-02 17:05 | XMS_ITS | Encounter Summary ---
Author Organization [facility] Address 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
--- OUTSIDE RECORDS SUMMARY | 2025-07-02 17:05 | XMS_ITS | Encounter Summary ---
Author Organization [facility] Address [address] [place] [address] Care Team Providers Care Burglary Investigator Name Role Phone Unavailable Primary Care Provider Unavailabl e Encounter Details Date Type Department Care Team (Late st Contact Info) Description 01/30/2004 Outpatient Historical [facility] Pediatrics - Medical [place] [address] [address] Chip Morrison MD NO ADDRESS ON FILE Social History Tobacco Use Types Packs/Day Years Used Date Smoking Tobacco: Never Assessed Comments Unknown Sex and Gender Information Value Date Recorded Sex Assigned at Not on file 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
--- OUTSIDE RECORDS SUMMARY | 2025-07-02 17:05 | XMS_ITS | Clinical Summary ---
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 Gender Identity Not on file Sexual Orientation Not on file Last Filed Vital Signs Vital Sign Reading Time Taken Comments Blood Pressure 101/59 06/14/2018 5:14 PM CUSTOM FRAMING SPECIALIST Pulse - - Temperature 36.9 C (98.4 F) 06/14/2018 5:14 PM CUSTOM FRAMING SPECIALIST Respiratory Rate 16 06/14/2018 5:14 PM CUSTOM FRAMING SPECIALIST Oxygen Saturation 97% 06/14/2018 5:14 PM CUSTOM FRAMING SPECIALIST Inhaled Oxygen Concentration - - Weight 74.8 kg (165 lb) 06/14/2018 1:28 PM CUSTOM FRAMING SPECIALIST Height 157.5 cm (5' 2) 06/14/2018 1:28 PM CUSTOM FRAMING SPECIALIST Body Mass Index 30.18 06/14/2018 1:28 PM CUSTOM FRAMING SPECIALIST Plan of Treatment Health Maintenance Due Date Last Done Comments HPV VACCINES (1 - 3-dose series) 2015 DTAP/TDAP/TD VACCINES (1 - Tdap) 2019 HEPATITIS B VACCINES (1 of 3 - 19+ 3-dose series) 12/2018 CERVICAL CANCER SCREENING 2021 HPV/Cotest (21-29) 2021 PAP SMEAR 2021 INFLUENZA VACCINE (#1) 2025
--- OUTSIDE RECORDS SUMMARY | 2025-07-02 17:06 | XMS_ITS | Encounter Summary ---
Author Organization [facility] Address [address] Attn: [place] [address] Care Team Providers Care Manager Material Name Role Phone Unavailable Primary Care Provider Unavailabl e Encounter Details Date Type Department Care Team (Late st Contact Info) Description 2000 [place] [address] [place], [place] [id number] Sunil Baker MD NO ADDRESS ON FILE Single liveborn, born in hospital, delivered by delivery (Primary Dx) Social History Tobacco Use Types Packs/Day Years Used Date Smoking Tobacco: Never Assessed Comments Unknown Sex and Gender Information Value Date Recorded Sex Assigned at Not on file 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
--- OUTSIDE RECORDS SUMMARY | 2025-07-02 17:06 | XMS_ITS | Encounter Summary ---
Author Organization [facility] Address [address] [place] [address] Care Team Providers Care Pressure Tester Operator Name Role Phone Unavailable Primary Care Provider Unavailabl e Encounter Details Date Type Department Care Team (Late st Contact Info) Description 09/18/2001 Outpatient Historical [facility] Pediatrics - Medical [place] [address] [facility] [address] [address] Chip Morrison MD NO ADDRESS ON FILE Social History Tobacco Use Types Packs/Day Years Used Date Smoking Tobacco: Never Assessed Comments Unknown Sex and Gender Information Value Date Recorded Sex Assigned at Not on file 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
--- OUTSIDE RECORDS SUMMARY | 2025-07-02 17:06 | XMS_ITS | Encounter Summary ---
Author Organization [facility] Address [address] [place] [address] Care Team Providers Care Underwriting Sales Representative Name Role Phone Unavailable Primary Care Provider Unavailabl e Encounter Details Date Type Department Care Team (Late st Contact Info) Description 2000 Outpatient Historical HIS [place] [address] [place] [address] Single liveborn, born in hospital, delivered by delivery (Primary Dx) Social History Tobacco Use Types Packs/Day Years Used Date Smoking Tobacco: Never Assessed Comments Unknown Sex and Gender Information Value Date Recorded Sex Assigned at Not on file Legal Sex Female 3:50 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
--- OUTSIDE RECORDS SUMMARY | 2025-07-02 17:06 | XMS_ITS | Clinical Summary ---
Author Organization [facility] Address [address] [place] [address] Care Team Providers Care Rn Pain Management Name Role Phone Unavailable Primary Care [...]
--- OUTSIDE RECORDS SUMMARY | 2025-07-02 17:06 | XMS_ITS | Encounter Summary ---
Author Organization [facility] Address 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
--- OUTSIDE RECORDS SUMMARY | 2025-07-02 17:06 | XMS_ITS | Encounter Summary ---
Author Organization [facility] Address [address] [place] [address] Care Team Providers Care Wan Support Specialist Name Role Phone Jil Solomon DO Primary Care Provider [phone] Encounter Details Date Type Department Care Team (Late st Contact Info) Description 08/30/2017 Ophth Exam [facility] Pediatrics - Ophthalmology [address] [place] [address] Gibran Beyer MD [address] [place] [address] Social History Tobacco Use Types Packs/Day Years Used Date Smoking Tobacco: Never Smokeless Tobacco: Never Alcohol Use Standard Drinks/Week Comments No 0 (1 standard drink = 0.6 oz pur e alcohol) Comments Unknown Sex and Gender Information Value Date Recorded Sex Assigned at Not on file Legal Sex Female 7:12 AM ALCOHOL LAW ENFORCEMENT AGENT Gender Identity Not on file Sexual Orientation Not on file documented as of this encounter Plan of Treatment Not on file documented as of this encounter Visit Diagnoses Not on filedocumented in this encounter Care Teams Wan Support Specialist Relationship Specialty Start Date End Date Jil Solomon DO PCP - General Pediatrics 07/14/13 documented as of this encounter
--- OUTSIDE RECORDS SUMMARY | 2025-07-02 17:06 | XMS_ITS | Encounter Summary ---
Author Organization [facility] Address [address] [place] [address] Care Team Providers Care Cleaning And Washing Equipment Operator Name Role Phone Unavailable Primary Care Provider Unavailabl e Encounter Details Date Type Department Care Team (Late st Contact Info) Description 10/30/2001 Outpatient Historical [facility] Pediatrics - Medical [place] [address] [facility] [address] [address] Chip Morrison MD NO ADDRESS ON FILE Social History Tobacco Use Types Packs/Day Years Used Date Smoking Tobacco: Never Assessed Comments Unknown Sex and Gender Information Value Date Recorded Sex Assigned at Not on file Legal Sex Female 3:50 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
--- OUTSIDE RECORDS SUMMARY | 2025-07-02 17:06 | XMS_ITS | Continuity of Care Document ---
Author Organization [facility] [place] Address [address] [place] [address] Assessment No assessment recorded. Plan of Treatment [...] Resul ting Lab: [facility] [address] [facility] [address] Tel: [phone] CULTU RE ----- ----- ----- --- No growt h in 1 day (dete ction level of 10,00 0 colon ies / ml.) Not Available [facility] (Lab) [address], [place], [address], 01/25/2025 22:30:24 04/18/20 25 04/18/2025 HEMAT OCRIT (HCT) HCT 35.3 % (based on docume nted legal sex) 34.0-4 5.0 Not Available [facility] (Lab) [address] [facility], [place], [address], 04/19/2025 11:56:39 04/18/20 25 04/18/2025 HEMOG LOBIN (HGB) HGB 11.9 g/dL (based on docume nted legal sex) 11.6-1 5.4 Not Available [facility] (Lab) [address] [facility] [address], [place], [address], 04/19/2025 11:56:39 04/18/20 25 04/18/2025 GTT - GESTA EMILY L CHRIS N, ACOG OB glucose, 1 hour screen 89 mg/dL 70-[address] [facility] (Lab) [address], [place], [address], 04/19/2025 11:56:39 04/18/20 25 04/18/2025 HIV 1/2 ANTIG EN/AN TIBOD Y, REFLE X CONFI RMATI ON HIV antigen/anti body Nonrea ctive nonrea ctive HIV-1 antig en and HIV-1 /HIV- 2 antib odies were not detec franci. No labor atory evide nce of HIV infec tion. Not Available [facility] (Lab) [address], [place], [address], 04/19/2025 11:56:40 04/18/20 25 04/18/2025 RPR SCREE N, REFLE X TITER /CONF IRMAT ION RPR qualitative Nonrea ctive nonrea ctive Not Available [facility] (Lab) [address], [place], [address], 04/19/2025 11:56:40 06/11/20 25 06/11/2025 CULTU RE: [...] t Abnor mal: No Resul ting Lab: [facility] [address] [facility] [address] Tel: CULTU RE ----- ----- ----- --- No Group B strep isola franci at 2 days (earl ctive broth enhan cemen t) Not Available [facility] (Lab) [address], [place], [address], 06/14/2025 12:44:39 02/19/20 25 02/18/2025 US, obste tric, 2nd or 3rd trime ster No observ ation record ed. [facility] [address], [place], [address], 02/18/2025 18:22:42 02/19/20 25 02/18/2025 US, obste tric, 2nd or 3rd trime ster No observ ation record ed. [address], [place], [address], 02/19/2025 17:40:42 05/15/20 25 05/15/2025 US, obste tric, follo w-up No observ ation record ed. [facility] [address], [place], [address], 05/15/2025 18:01:07 05/15/20 25 05/15/2025 US, obste tric, follo w-up No observ ation record ed. [email or web address] [address], [place], [address], 05/16/2025 11:28:46 05/22/20 25 05/22/2025 US, abdom en, limit ed No observ ation record ed. [address] [facility] [address], [place], [address], 06/04/2025 15:25:14 05/22/20 25 05/22/2025 US, abdom en No observ ation record ed. [address] [facility] [address], [place], [address], 06/04/2025 15:24:46 06/10/20 25 06/10/2025 imagi ng/di agnos tic resul t No observ ation record ed. JAYDE [address] [address], [place], [address], 06/11/2025 18:24:22 06/10/20 25 06/10/2025 US, obste tric, follo w-up No observ ation record ed. [facility] [address], [place], [address], 06/10/2025 18:15:52 Result Notes None recorded. Problems Name Problem SNOMED Code Status Onset Date Resolution Date Notes Provider Name and Address Organization Details Recorded Time Rubella non-immun e 631976239 Active 2024 MMR vaccine pp Jessica box, [facility] 5 10:05:31 Asthma 668434779 Active 2024 Shayna Davison CNM [address], [place], [address], [facility] 15:56:57 57772763 Active 2024 Rosa box, [facility] 15:33:14 Asthma 702415141 Active 2024 Shayna Davison CNM [address], [place], [address], [facility] 15:56:57 Body mass index 30+ - obesity 718034993 Active 2024 Starting BMI of around 32, 36 in the 3rd trimester . Thirty-tw o week growth ultrasoun d. Consider testing at 37 weeks Brian Caro MD [address], [place], [address], [facility] 17:54:15 Problem Notes None recorded. Procedures Surgical History Date Name Laterality Status Provider Name and Address Organization Details Recorded Time 12/25/2024 Date of Last Pap Smear completed Petra Dill [facility] 12/25/2024 19:40:01 Imaging Results None recorded. [...] and Address Organization Details Last Updated DateTime 06/23/2025 158.75 cm 39.6 kg/m2 62612.32 g 126/85 mm[Hg] SHEILA PATTERSON [facility] 06/23/2025 14:20:29 Social History Question Answer Notes LastModified by Organizat ion Details LastModified Time Tobacco Smoking Status Former Smoker Petra box, [facility] 12/25/2024 19:41:56 Do You Have An Advance Directive? No [email or web address] Information not available 12/25/2024 If You Are , What Was Your Level Of Alcohol Consumption Prior To ? Occasional [email or web address] Information not available 12/25/2024 Are You Blind Or Do You Have Difficulty Seeing? No [email or web address] Information not available 12/25/2024 What Is Your Level Of Caffeine Consumption? Occasional Information not available 12/25/2024 In The 14 Days Before Symptom Onset, Have You Had Close Contact With A Laboratory-confir med COVID-19 While That Case Was Ill? No [email or web address] Information not available 12/25/2024 In The 14 Days Before Symptom Onset, Have You Had Close Contact With A Person Who Is Under Investigation For COVID-19 While That Person Was Ill? No [email or web address] Information not available 12/25/2024 Have You Been To An Area Known To Be High Risk For COVID-19? No [email or web address] Information not available 12/25/2024 Are You Deaf Or Do You Have Serious Difficulty Hearing? No [email or web address] Information not available 12/25/2024 What Type Of Diet Are You Following? REGULAR [email or web address] Information not available 12/25/2024 What Is The Highest Grade Or Level Of School You Have Completed Or The Highest Degree You Have Received? [id number] [email or web address] Information not available 12/25/2024 Are There Any Guns Present In Your Home? No [email or web address] Information not available 12/25/2024 Do You Use Protection During Sex? No [email or web address] Information not available 12/25/2024 Do You Use Your Seat Belt Or Car Seat Routinely? Yes [email or web address] Information not available 12/25/2024 Do You Have Smoke And Carbon Monoxide Detectors In Your Home? Yes [email or web address] Information not available 12/25/2024 How Much Tobacco Do You Smoke? No [email or web address] Information not available 12/25/2024 Do You Use Sunscreen Routinely? Yes [email or web address] Information not available 12/25/2024 Has Tobacco Cessation Counseling Been Provided? No [email or web address] Information not available 12/25/2024 Have You Used IV Drugs? No [email or web address] Information not available 12/25/2024 Do You Have Difficulty Walking Or Climbing Stairs? No [email or web address] Information not available 12/25/2024 Sex: Unknown Functional Status Question Answer Note LastModified by Organizat ion Details LastModified Time Do you use any illicit or recreational drugs? No [email or web address] Information not available 12/25/2024 Do you or have you ever used any other forms of tobacco or nicotine? No [email or web address] Information not available 12/25/2024 What is your level of alcohol consumption? None [email or web address] Information not available 12/25/2024 Are you able to walk independently without assistance or assistive devices? YESWOREST [email or web address] Information not available 12/25/2024 Are you able to care for yourself independently? 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 No [email or web address] Information not available 12/25/2024 What is your exercise level? Occasional [email or web address] Information not available 12/25/2024 Mental Status Question Answer Note LastModified by Organization D etails LastModified Time Do you feel stressed (tense, restless, nervous, or anxious, or unable to sleep at night)? [id number] [email or web address] Information not available 12/25/2024 Family History Relationship Description Onset Age of this Age Resolved Age Notes LastModified by Organization Details LastModified Time Unspecified Relation Family history unknown [email or web address] Not available 12/25 15:33:59 Maternal Uncle Diabetes [...] ICD10 Code Diagnosis IMO Codes Diagnosis Note [id number] YESSY KENT MD [place] [address] [address] 05/30/2025 14:18:37 05/30/2025 16:00:35 Body mass index 30+ - obesity 855834336 E66.9 6035492 Asthma 706491259 J45.90 9 [id number] - well controlled Gestation period, 34 weeks 91412037 Z3A.34 9170248 - continue PNV [id number] MD Erickson LUNDY [address] [address] 06/10/2025 17:18:53 06/11/2025 08:25:12 Maternal obesity complicating , childbirth and the puerperium, antepartum 2608723117 07 O99.210 Z03.74 Z3A.35 2523021793 304327 MD Erickson LUNDY [address],[place] [address] 06/10/2025 17:19:25 06/11/2025 08:24:29 Gestation period, 36 weeks 08292194 Z3A.36 8122084 Body mass index 30+ - obesity 715832265 E66.9 2623194 419205 MD Erickson LUNDY [address],[place] [address] 06/18/2025 12:57:50 06/18/2025 14:06:19 Third trimester 49243361 Z34.03 46313989 - continue PNV [id number] MD Erickson LUNDY [address],[place] [address] 06/23/2025 14:08:30 06/23/2025 14:41:57 Body mass index 30+ - obesity 070064782 E66.9 2672554 Gestation period, 37 weeks 99772400 Z3A.37 7504101 - continue PNV Health Concerns Section Related Observation LastModified by Organization Detai ls LastModified Time None Recorded Concern Status LastModified by Organization Details LastModified Time None Recorded Payers Encounter Date Sequence Insurance Name Policy Number Policy Mejia Covered Member ID Mejia Member ID Guarantor Name 06/23/2025 1 [facility] (MEDICAID REPLACEMENT - HMO) Anusha Mohan [id number] Anusha Mohan Notes Date Note Type Note Provider Name and Address Organization Details Recorded Time 06/23/2025 text/html Generic HPI TemplateReported by Patient YESSY KENT MD [address], [place], [address], [facility] 06/23/2025 14:40:58 OBGyn Episode Ob Episode Information Episode Created Date Number of Fetuses Patient Bloodtype Patient rh Status Prepregnancy Weight lbs Domestic Partner Domestic Partner Phone Father Name Medical Receptionist Status 01/25/20 25 1 O Positive 187 OPEN Fetus Data First Name Last Name Admitted to NICU Weight (g) Sex Living Outcome Pediatric Complications Fetus ID Race Codes Race Delivery Type [id number] Problems Problem Notes first - bASA daily Problem Name Start Date End Date Resolution Snomed Code Not e Asthma 01/24/2025 214145515 Body mass index 30+ - obesity 04/30/2025 005988690 Starting BMI of around 32, 36 in [...] Type Weight in lbs Pre/Post Dialysis Refused 185.942036175853 BP Diastolic BP Location Tested BP Systolic [...] Weight in lbs Pre/Post Dialysis Refused Weight 188.777283739938 BP Diastolic BP Location Tested BP Systolic [...] Weight in lbs Pre/Post Dialysis Refused Weight 195.547827304961 BP Diastolic BP Location Tested BP Systolic [...] Weight in lbs Pre/Post Dialysis Refused Weight 203.776138191323 BP Diastolic BP Location Tested BP Systolic [...] Type Weight in lbs Pre/Post Dialysis Refused 204.631241646442 BP Diastolic BP Location Tested BP Systolic [...] Type Weight in lbs Pre/Post Dialysis Refused 209.674996329422 BP Diastolic BP Location Tested BP Systolic [...] Weight in lbs Pre/Post Dialysis Refused Weight 211.557102756443 BP Diastolic BP Location Tested BP Systolic BP Type 63 L arm 113 sitting Fetus Heart Rate Present A 145 Fetus Movement A Yes Comments Was seen at [facility] for pre term contractions, started on Procardia [...] Weight in lbs Pre/Post Dialysis Refused Weight 215.777153532500 BP Diastolic BP Location Tested BP Systolic [...] Weight in lbs Pre/Post Dialysis Refused Weight 215.457182009292 BP Diastolic BP Location Tested BP Systolic [...] Weight in lbs Pre/Post Dialysis Refused Weight 220.460041828477 BP Diastolic BP Location Tested BP Systolic [...]
--- OUTSIDE RECORDS SUMMARY | 2025-07-02 17:06 | XMS_ITS | Continuity of Care Document ---
Author Organization [facility] Address [address] [place] [address] Assessment Encounter Date Assessment Date Assessment LastModified by Organization Details LastModified Time 04/30/2025 04/30/2025 Patient is ___weeks . Discussed plan. [email or web address] Not available 04/30/2025 17:22:51 Plan of Treatment Reminders Order Date Submit [...] Resul ting Lab: [facility] [address] [facility] [address] Tel: CULTU RE ----- ----- ----- --- No growt h in 1 day (dete ction level of 10,00 0 colon ies / ml.) Not Available [facility] (Lab) [address] [facility], [place], [address], 01/25/2025 22:30:24 04/18/20 25 04/18/2025 HEMAT OCRIT (HCT) HCT 35.3 % (based on docume nted legal sex) 34.0-4 5.0 Not Available [facility] (Lab) [address] [facility], [place], [address], 04/19/2025 11:56:39 04/18/20 25 04/18/2025 HEMOG LOBIN (HGB) HGB 11.9 g/dL (based on docume nted legal sex) 11.6-1 5.4 Not Available [facility] (Lab) [address] [facility], [place], [address], 04/19/2025 11:56:39 04/18/20 25 04/18/2025 GTT - GESTA EMILY L CHRIS N, ACOG OB glucose, 1 hour screen 89 mg/dL 70-135 Not Available [facility] (Lab) [address] [facility], [place], [address], 04/19/2025 11:56:39 04/18/2004/18/2025 HIV 1/2 ANTIG EN/AN TIBOD Y, REFLE X CONFI RMATI ON HIV antigen/anti body Nonrea ctive nonrea ctive HIV-1 antig en and HIV-1 /HIV- 2 antib odies were not detec franci. No labor atory evide nce of HIV infec tion. Not Available [facility] (Lab) [address] [facility], [place], [address], 04/19/2025 11:56:40 04/18/20 25 04/18/2025 RPR SCREE N, REFLE X TITER /CONF IRMAT ION RPR qualitative Nonrea ctive nonrea ctive Not Available [facility] (Lab) [address] [facility], [place], [address], 04/19/2025 11:56:40 02/19/20 25 02/18/2025 US, obste tric, 2nd or 3rd trime ster No observ ation record ed. [facility] [address], [place], [address], 02/18/2025 18:22:42 02/19/20 25 02/18/2025 US, obste tric, 2nd or 3rd trime ster No observ ation record ed. [email or web address] [address], [place], [address], 02/19/2025 17:40:42 05/15/20 25 05/15/2025 US, obste tric, follo w-up No observ ation record ed. [facility] [address], [place], [address], 05/15/2025 18:01:07 05/15/20 25 05/15/2025 US, obste tric, follo w-up No observ ation record ed. [email or web address] [address], [place], [address], 05/16/2025 11:28:46 05/22/20 25 05/22/2025 US, abdom en, limit ed No observ ation record ed. [address] [place] [address], [place], [address], 06/04/2025 15:25:14 05/22/20 25 05/22/2025 US, abdom en No observ ation record ed. [address] [address], [place], [address], 06/04/2025 15:24:46 06/10/20 25 06/10/2025 imagi ng/di agnos tic resul t No observ ation record ed. JAYDE [address], [place], [address], 06/11/2025 18:24:22 06/10/20 25 06/10/2025 US, obste tric, follo w-up No observ ation record ed. norris [place] [address], [place], [address], 06/10/2025 18:15:52 Result Notes None recorded. Problems Name Problem SNOMED Code Status Onset Date Resolution Date Notes Provider Name and Address Organization Details Recorded Time Rubella non-immun e 283269874 Active 2024 MMR vaccine pp Jessicadavid box, [facility] 10:05:31 Asthma 795569826 Active 2024 Shayna Davison CNM [address], [place], [address], [facility] 15:56:57 03353884 Active 2024 Rosa box, [facility] 15:33:14 Asthma 497597730 Active 2024 Shayna Davison CNM [address], [place], [address], [facility] 15:56:57 Body mass index 30+ - obesity 788296385 Active 2024 Starting BMI of around 32, 36 in the 3rd trimester . Thirty-tw o week growth ultrasoun d. Consider testing at 37 weeks Brian Caro MD [address], [place], [address], [facility] 17:54:15 Problem Notes None recorded. Procedures Surgical History Date Name Laterality Status Provider Name and Address Organization Details Recorded Time 12/25/2024 Date of Last Pap Smear completed Petra Dill [facility] 12/25/2024 19:40:01 Imaging Results None [...] Not Available Vitals Date Recorded Body weight Body mass index (BMI) Body height Systolic And Diastolic Provider Name and Address Organization Details Last Updated DateTime 04/30/2025 49898.843 48 g 36.7 kg/m2 158.75 cm 120/81 mm[Hg] Ewa Jake [facility] 04/30/2025 17:23:17 Social History Question Answer Notes LastModified by Organizat ion Details LastModified Time Tobacco Smoking Status Former Smoker Petra Dill [email or web address], [facility] 12/25/2024 19:41:56 Do You Have An Advance Directive? No Information not available 12/25/2024 If You Are , What Was Your Level Of Alcohol Consumption Prior To ? Occasional [email or web address] Information not available 12/25/2024 Are You Blind Or Do You Have Difficulty Seeing? No [email or web address] Information not available 12/25/2024 What Is Your Level Of Caffeine Consumption? Occasional [email or web address] Information not available 12/25/2024 In The 14 Days Before Symptom Onset, Have You Had Close Contact With A Laboratory-confir med COVID-19 While That Case Was Ill? No [email or web address] Information not available 12/25/2024 In The 14 Days Before Symptom Onset, Have You Had Close Contact With A Person Who Is Under Investigation For COVID-19 While That Person Was Ill? No Information not available 12/25/2024 Have You Been To An Area Known To Be High Risk For COVID-19? No [email or web address] Information not available 12/25/2024 Are You Deaf Or Do You Have Serious Difficulty Hearing? No [email or web address] Information not available 12/25/2024 What Type Of Diet Are You Following? REGULAR Information not available 12/25/2024 What Is The Highest Grade Or Level Of School You Have Completed Or The Highest Degree You Have Received? [id number] [email or web address] Information not available 12/25/2024 Are There Any Guns Present In Your Home? No [email or web address] Information not available 12/25/2024 Do You Use Protection During Sex? No [email or web address] Information not available 12/25/2024 Do You Use Your Seat Belt Or Car Seat Routinely? Yes [email or web address] Information not available 12/25/2024 Do You Have Smoke And Carbon Monoxide Detectors In Your Home? Yes [email or web address] Information not available 12/25/2024 How Much Tobacco Do You Smoke? No [email or web address] Information not available 12/25/2024 Do You Use Sunscreen Routinely? Yes [email or web address] Information not available 12/25/2024 Has Tobacco Cessation Counseling Been Provided? No [email or web address] Information not available 12/25/2024 Have You Used IV Drugs? No Information not available 12/25/2024 Do You Have Difficulty Walking Or Climbing Stairs? No Information not available 12/25/2024 Sex: Unknown Functional Status Question Answer Note LastModified by Organizat ion Details LastModified Time Do you use any illicit or recreational drugs? No [email or web address] Information not available 12/25/2024 Do you or have you ever used any other forms of tobacco or nicotine? No [email or web address] Information not available 12/25/2024 What is your level of alcohol consumption? None [email or web address] Information not available 12/25/2024 Are you able to walk independently without assistance or assistive devices? YESWOREST [email or web address] Information not available 12/25/2024 Are you able to care for yourself independently? 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 No [email or web address] Information not available 12/25/2024 What is your exercise level? Occasional [email or web address] Information not available 12/25/2024 Mental Status Question Answer Note LastModified by Organization D etails LastModified Time Do you feel stressed (tense, restless, nervous, or anxious, or unable to sleep at night)? [id number] [email or web address] Information not available 12/25/2024 Family History Relationship Description Onset Age of this Age Resolved Age Notes LastModified by Organization Details LastModified Time Unspecified Relation Family history unknown [email or web address] Not available 12/25 15:33:59 Maternal Uncle Diabetes [...] ICD10 Code Diagnosis IMO Codes Diagnosis Note [id number] YESSY KENT MD [facility] [address] [address] 04/18/2025 11:56:56 04/18/2025 12:41:40 Third trimester 18375509 Z34.03 [id number] - continue PNV- GCT and labs drawn today [id number] Brian Caro MD [facility] [address] [address] 04/30/2025 16:51:14 05/01/2025 09:05:35 Third trimester 91738237 Z34.03 [id number] Health Concerns Section Related Observation LastModified by Organization Detai ls LastModified Time None Recorded Concern Status LastModified by Organization Details LastModified Time None Recorded Payers Encounter Date Sequence Insurance Name Policy Number Policy Mejia Covered Member ID Mejia Member ID Guarantor Name 04/30/2025 1 [facility] (MEDICAID REPLACEMENT - HMO) Anusha Mohan [id number] Anusha Mohan Notes Date Note Type Note Provider Name and Address Organization Details Recorded Time 04/30/2025 text/html Generic HPI TemplateReported by Patient Brian Caro MD [address], [place], [address], [facility] 04/30/2025 17:58:23 OBGyn Episode Ob Episode Information Episode Created Date Number of Fetuses Patient Bloodtype Patient rh Status Prepregnancy Weight lbs Domestic Partner Domestic Partner Phone Father Name Ice Delivery Driver Status 01/25/20 25 1 O Positive 187 OPEN Fetus Data First Name Last Name Admitted to NICU Weight (g) Sex Living Outcome Pediatric Complications Fetus ID Race Codes Race Delivery Type [id number] Problems Problem Notes first - bASA daily Problem Name Start Date End Date Resolution Snomed Code Not e Asthma 01/24/2025 425266335 Body mass index 30+ - obesity 04/30/2025 517640993 Starting BMI of around 32, 36 in [...] Type Weight in lbs Pre/Post Dialysis Refused 185.567093697427 BP Diastolic BP Location Tested BP Systolic [...] Weight in lbs Pre/Post Dialysis Refused Weight 188.338550422893 BP Diastolic BP Location Tested BP Systolic [...] Weight in lbs Pre/Post Dialysis Refused Weight 195.486882854422 BP Diastolic BP Location Tested BP Systolic [...] Weight in lbs Pre/Post Dialysis Refused Weight 203.667307534198 BP Diastolic BP Location Tested BP Systolic [...] Type Weight in lbs Pre/Post Dialysis Refused 204.225146788107 BP Diastolic BP Location Tested BP Systolic [...] Type Weight in lbs Pre/Post Dialysis Refused 209.731714738421 BP Diastolic BP Location Tested BP Systolic [...] Weight in lbs Pre/Post Dialysis Refused Weight 211.030395308325 BP Diastolic BP Location Tested BP Systolic BP Type 63 L arm 113 sitting Fetus Heart Rate Present A 145 Fetus Movement A Yes Comments Was seen at [place] for pre term contractions, started on Procardia [...] Weight in lbs Pre/Post Dialysis Refused Weight 215.921723538836 BP Diastolic BP Location Tested BP Systolic [...] Weight in lbs Pre/Post Dialysis Refused Weight 215.009495402400 BP Diastolic BP Location Tested BP Systolic [...] Weight in lbs Pre/Post Dialysis Refused Weight 220.034398605781 BP Diastolic BP Location Tested BP Systolic [...]
--- OUTSIDE RECORDS SUMMARY | 2025-07-02 17:06 | XMS_ITS | Encounter Summary ---
Author Organization [facility] Address 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
--- OUTSIDE RECORDS SUMMARY | 2025-07-02 17:06 | XMS_ITS | Encounter Summary ---
Author Organization [facility] Address [address] [place] [address] Care Team Providers Care Director Hair Name Role Phone Unavailable Primary Care Provider Unavailabl e Encounter Details Date Type Department Care Team (Late st Contact Info) Description 03/21/2003 Outpatient Historical [facility] - [facility] [place] [address] [facility] [address] [address] Chip Morrison MD NO ADDRESS ON FILE Social History Tobacco Use Types Packs/Day Years Used Date Smoking Tobacco: Never Assessed Comments Unknown Sex and Gender Information Value Date Recorded Sex Assigned at Not on file Legal Sex Female 3:[address] Gender Identity Not on file Sexual Orientation Not on file documented as of this encounter Plan of Treatment Not on file documented as of this encounter Visit Diagnoses Not on filedocumented in this encounter
--- OUTSIDE RECORDS SUMMARY | 2025-07-02 17:06 | XMS_ITS | Encounter Summary ---
Author Organization [facility] Address 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
--- OUTSIDE RECORDS SUMMARY | 2025-07-02 17:06 | XMS_ITS | Encounter Summary ---
Author Organization [facility] Address [address] [place] [address] Care Team Providers Care Electrical Timing Device Calibrator Name Role Phone Unavailable Primary Care Provider Unavailabl e Encounter Details Date Type Department Care Team (Latest Contact Info) Description 2000 Outpatient Historical [facility] [place] [address] [place] [address] Need for prophylactic vaccination and inoculation against other combinations of diseases (Primary Dx) Social History Tobacco Use Types Packs/Day Years Used Date Smoking Tobacco: Never Assessed Comments Unknown Sex and Gender Information Value Date Recorded Sex Assigned at Not on file 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
--- OUTSIDE RECORDS SUMMARY | 2025-07-02 17:06 | XMS_ITS | Continuity of Care Document ---
Author Organization [facility] [place] Address [address] [place] [address] [place] [address] Assessment No assessment recorded. Plan of Treatment Reminders Order Date Submit Date Provider Last Modified By Organization Details Last Modified Time Details Appointments OB ROUTINE 2024 03:15P Sandrita KENT MD Not available Not available Not available OB ROUTINE 2024 03:30P Sandrita KNET MD Not available Not available Not available Lab None recorded . Referral None recorded . Procedures None recorded . Surgeries None recorded . Imaging US, obstetri c, follow-u p 2024 025 [facility], [address], [address], [place], [address], 05/16/2025 10:00:12 Medication Orders None recorded . Patient TargetsNo [...] t Abnor mal: No Resul ting Lab: [facility] [address] [facility] [address] Tel: CULTU RE ----- ----- ----- --- No growt h in 1 day (dete ction level of 10,00 0 colon ies / ml.) Not Available [facility] (Lab) [address] [facility], [place], [address], 01/25/2025 22:30:24 04/18/2004/18/2025 HEMAT OCRIT (HCT) HCT 35.3 % (based on docume nted legal sex) 34.0-4 5.0 Not Available [facility] (Lab) [address] [facility], [place], [address], 04/19/2025 11:56:39 04/18/2004/18/2025 HEMOG LOBIN (HGB) HGB 11.9 g/dL (based on docume nted legal sex) 11.6-1 5.4 Not Available [facility] (Lab) [address] [place], [address], 04/19/2025 11:56:39 04/18/20 25 04/18/2025 GTT - GESTA EMILY L CHRIS Rod, ACOG OB glucose, 1 hour screen 89 mg/dL 70-135 Not Available [facility] (Lab) [address] [place], [address], 04/19/2025 11:56:39 04/18/2004/18/2025 HIV 1/2 ANTIG EN/AN TIBOD Y, REFLE X CONFI RMATI ON HIV antigen/anti body Nonrea ctive nonrea ctive HIV-1 antig en and HIV-1 /HIV- 2 antib odies were not detec franci. No labor atory evide nce of HIV infec tion. Not Available [facility] (Lab) [address] [place], [address], 04/19/2025 11:56:40 04/18/20 25 04/18/2025 RPR SCREE N, REFLE X TITER /CONF IRMAT ION RPR qualitative Nonrea ctive nonrea ctive Not Available [facility] (Lab) [address], [place], [address], 04/19/2025 11:56:40 02/19/20 25 02/18/2025 US, obste tric, 2nd or 3rd trime ster No observ ation record ed. [facility] [address], [place], [address], 02/18/2025 18:22:42 02/19/20 25 02/18/2025 US, obste tric, 2nd or 3rd trime ster No observ ation record ed. [address], [place], [address], 02/19/2025 17:40:42 05/15/20 25 05/15/2025 US, obste tric, follo w-up No observ ation record ed. [facility] [address], [place], [address], 05/15/2025 18:01:07 05/15/20 25 05/15/2025 US, obste tric, follo w-up No observ ation record ed. [email or web address] [address], [place], [address], 05/16/2025 11:28:46 05/22/20 25 05/22/2025 US, abdom en, limit ed No observ ation record ed. [address] [facility], [place], [address], 06/04/2025 15:25:14 05/22/20 25 05/22/2025 US, abdom en No observ ation record ed. [address], [place], [address], 06/04/2025 15:24:46 06/10/20 25 06/10/2025 imagi ng/di agnos tic resul t No observ ation record ed. JAYDE [place] [address], [place], [address], 06/11/2025 18:24:22 06/10/20 25 06/10/2025 US, obste tric, follo w-up No observ ation record ed. [facility] [address], [place], [address], 06/10/2025 18:15:52 Result Notes None recorded. Problems Name Problem SNOMED Code Status Onset Date Resolution Date Notes Provider Name and Address Organization Details Recorded Time Rubella non-immun e 095636086 Active 2024 MMR vaccine pp Jessica box, [facility] 10:05:31 Asthma 271268100 Active 2024 Shayna Davison CNM [address], [place], [address], [facility] 15:56:57 59465346 Active 2024 Rosa box, [facility] 15:33:14 Asthma 353276664 Active 2024 Shayna Davison CNM [address], [place], [address], [facility] 15:56:57 Body mass index 30+ - obesity 474361787 Active 2024 Starting BMI of around 32, 36 in the 3rd trimester . Thirty-tw o week growth ultrasoun d. Consider testing at 37 weeks Brian Caro MD [address], [place], [address], [facility] 17:54:15 Problem Notes None recorded. Procedures Surgical History Date Name Laterality Status Provider Name and Address Organization Details Recorded Time 12/25/2024 Date of Last Pap Smear completed Petra Dill [facility] 12/25/2024 19:40:01 Imaging Results None recorded. [...] Address Organization Details Last Updated DateTime 05/15/2025 42022.97337 g 118/77 mm[Hg] Ewa Jake [facility] 05/15/2025 16:26:41 Social History Question Answer Notes LastModified by Organizat ion Details LastModified Time Tobacco Smoking Status Former Smoker Petra Dill isauro, [facility] 12/25/2024 19:41:56 Do You Have An Advance Directive? No [email or web address] Information not available 12/25/2024 If You Are , What Was Your Level Of Alcohol Consumption Prior To ? Occasional [email or web address] Information not available 12/25/2024 Are You Blind Or Do You Have Difficulty Seeing? No [email or web address] Information not available 12/25/2024 What Is Your Level Of Caffeine Consumption? Occasional [email or web address] Information not available 12/25/2024 In The 14 Days Before Symptom Onset, Have You Had Close Contact With A Laboratory-confir med COVID-19 While That Case Was Ill? No [email or web address] Information not available 12/25/2024 In The 14 Days Before Symptom Onset, Have You Had Close Contact With A Person Who Is Under Investigation For COVID-19 While That Person Was Ill? No [email or web address] Information not available 12/25/2024 Have You Been To An Area Known To Be High Risk For COVID-19? No [email or web address] Information not available 12/25/2024 Are You Deaf Or Do You Have Serious Difficulty Hearing? No [email or web address] Information not available 12/25/2024 What Type Of Diet Are You Following? REGULAR [email or web address] Information not available 12/25/2024 What Is The Highest Grade Or Level Of School You Have Completed Or The Highest Degree You Have Received? [id number] [email or web address] Information not available 12/25/2024 Are There Any Guns Present In Your Home? No [email or web address] Information not available 12/25/2024 Do You Use Protection During Sex? No [email or web address] Information not available 12/25/2024 Do You Use Your Seat Belt Or Car Seat Routinely? Yes [email or web address] Information not available 12/25/2024 Do You Have Smoke And Carbon Monoxide Detectors In Your Home? Yes Information not available 12/25/2024 How Much Tobacco Do You Smoke? No [email or web address] Information not available 12/25/2024 Do You Use Sunscreen Routinely? Yes [email or web address] Information not available 12/25/2024 Has Tobacco Cessation Counseling Been Provided? No [email or web address] Information not available 12/25/2024 Have You Used IV Drugs? No [email or web address] Information not available 12/25/2024 Do You Have Difficulty Walking Or Climbing Stairs? No [email or web address] Information not available 12/25/2024 Sex: Unknown Functional Status Question Answer Note LastModified by Organizat ion Details LastModified Time Do you use any illicit or recreational drugs? No [email or web address] Information not available 12/25/2024 Do you or have you ever used any other forms of tobacco or nicotine? No [email or web address] Information not available 12/25/2024 What is your level of alcohol consumption? None [email or web address] Information not available 12/25/2024 Are you able to walk independently without assistance or assistive devices? YESWOREST [email or web address] Information not available 12/25/2024 Are you able to care for yourself independently? 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 No [email or web address] Information not available 12/25/2024 What is your exercise level? Occasional [email or web address] Information not available 12/25/2024 Mental Status Question Answer Note LastModified by Organization D etails LastModified Time Do you feel stressed (tense, restless, nervous, or anxious, or unable to sleep at night)? [id number] [email or web address] Information not available 12/25/2024 Family History Relationship Description Onset Age of this Age Resolved Age Notes LastModified by Organization Details LastModified Time Unspecified Relation Family history unknown [email or web address] Not available 12/25 15:33:59 Maternal Uncle Diabetes [...] ICD10 Code Diagnosis IMO Codes Diagnosis Note [id number] YESSY KENT MD [place] [address] [address] 04/18/2025 11:56:56 04/18/2025 12:41:40 Third trimester 57739255 Z34.03 [id number] - continue PNV- GCT and labs drawn today [id number] MD Erickson Rosales [address] [address] 04/30/2025 16:51:14 05/01/2025 09:05:35 Third trimester 15441363 Z34.03 [id number] Brian Caro MD [place] [address],[facility] [place] [address] 05/15/2025 15:29:36 05/15/2025 16:23:43 Observational assessment [id number] Z03.74 Z3A.32 [id number] Brian Caro MD [place] [address] [address] 05/15/2025 15:29:46 05/15/2025 16:50:15 Third trimester 48277792 Z34.03 [id number] Health Concerns Section Related Observation LastModified by Organization Detai ls LastModified Time None Recorded Concern Status LastModified by Organization Details LastModified Time None Recorded Payers Encounter Date Sequence Insurance Name Policy Number Policy Mejia Covered Member ID Mejia Member ID Guarantor Name 05/15/2025 1 [facility] (MEDICAID REPLACEMENT - HMO) Anusha Mohan [id number] Anusha Mohan Notes Date Note Type Note Provider Name and Address Organization Details Recorded Time 05/15/2025 text/html Generic HPI TemplateReported by Patient Brian Caro MD [address], [place], [address], [facility] 05/15/2025 16:44:11 OBGyn Episode Ob Episode Information Episode Created Date Number of Fetuses Patient Bloodtype Patient rh Status Prepregnancy Weight lbs Domestic Partner Domestic Partner Phone Father Name Quality Process Engineer Status 01/25/20 25 1 O Positive 187 OPEN Fetus Data First Name Last Name Admitted to NICU Weight (g) Sex Living Outcome Pediatric Complications Fetus ID Race Codes Race Delivery Type [id number] Problems Problem Notes first - bASA daily Problem Name Start Date End Date Resolution Snomed Code Not e Asthma 01/24/2025 918767523 Body mass index 30+ - obesity 04/30/2025 654353238 Starting BMI of around 32, 36 in [...] Type Weight in lbs Pre/Post Dialysis Refused 185.913074859136 BP Diastolic BP Location Tested BP Systolic [...] Weight in lbs Pre/Post Dialysis Refused Weight 188.141465670649 BP Diastolic BP Location Tested BP Systolic [...] Weight in lbs Pre/Post Dialysis Refused Weight 195.159353269400 BP Diastolic BP Location Tested BP Systolic [...] Weight in lbs Pre/Post Dialysis Refused Weight 203.731954778594 BP Diastolic BP Location Tested BP Systolic [...] Type Weight in lbs Pre/Post Dialysis Refused 204.680599977496 BP Diastolic BP Location Tested BP Systolic [...] Type Weight in lbs Pre/Post Dialysis Refused 209.867503028765 BP Diastolic BP Location Tested BP Systolic [...] Weight in lbs Pre/Post Dialysis Refused Weight 211.085308835752 BP Diastolic BP Location Tested BP Systolic BP Type 63 L arm 113 sitting Fetus Heart Rate Present A 145 Fetus Movement A Yes Comments Was seen at [facility] for pre term contractions, started on Procardia [...] Weight in lbs Pre/Post Dialysis Refused Weight 215.585791696900 BP Diastolic BP Location Tested BP Systolic [...] Weight in lbs Pre/Post Dialysis Refused Weight 215.471504868561 BP Diastolic BP Location Tested BP Systolic [...] Weight in lbs Pre/Post Dialysis Refused Weight 220.206115185931 BP Diastolic BP Location Tested BP Systolic [...]
--- OUTSIDE RECORDS SUMMARY | 2025-07-02 17:06 | XMS_ITS | Continuity of Care Document ---
Author Organization [facility] [place] Address [address] [place] [address] Assessment No assessment recorded. Plan of Treatment Reminders Order Date Submit Date Provider Last Modified By Organization Details Last Modified Time Details Appointments OB ROUTINE 2024 03:15P Sandrita KENT MD Not available Not available Not available OB ROUTINE 2024 03:30P Sandrita KENT MD Not available Not available Not available Lab streptoco ccus group B, culture, unspecifi ed specimen 2024 025 [facility] (Lab), [address], [place], [address], 06/14/2025 12:44:39 Referral None recorded. Procedures None recorded. Surgeries None recorded. Imaging None recorded. Medication Orders None recorded. Patient TargetsNo targets recorded. Patient InstructionsNo instructions [...] t Abnor mal: No Resul ting Lab: [facility] [address] [facility] [address] Tel: CULTU RE ----- ----- ----- --- No growt h in 1 day (dete ction level of 10,00 0 colon ies / ml.) Not Available [facility] (Lab) [address] [facility], [place], [address], 01/25/2025 22:30:24 04/18/2004/18/2025 HEMAT OCRIT (HCT) HCT 35.3 % (based on docume nted legal sex) 34.0-[address] [facility] (Lab) [address], [place], [address], 04/19/2025 11:56:39 04/18/2004/18/2025 HEMOG LOBIN (HGB) HGB 11.9 g/dL (based on docume nted legal sex) 11.6-[address] [facility] (Lab) [address] [place], [address], 04/19/2025 11:56:39 04/18/20 25 04/18/2025 GTT - GESTA EMILY L CHRIS Rod, ACOG OB glucose, 1 hour screen 89 mg/dL 70-135 Not Available [facility] (Lab) [address] [place], [address], 04/19/2025 11:56:39 04/18/2004/18/2025 HIV 1/2 ANTIG EN/AN TIBOD Y, REFLE X CONFI RMATI ON HIV antigen/anti body Nonrea ctive nonrea ctive HIV-1 antig en and HIV-1 /HIV- 2 antib odies were not detec franci. No labor atory evide nce of HIV infec tion. Not Available [facility] (Lab) [address] [place], [address], 04/19/2025 11:56:40 04/18/20 25 04/18/2025 RPR SCREE N, REFLE X TITER /CONF IRMAT ION RPR qualitative Nonrea ctive nonrea ctive Not Available [facility] (Lab) [address] [facility], [place], [address], 04/19/2025 11:56:40 06/11/2006/11/2025 CULTU RE: GROUP B STREP SCREE N, [...] Resul ting Lab: [facility] [address] [facility] [address] Tel: CULTU RE ----- ----- ----- --- No Group B strep isola franci at 2 days (earl ctive broth enhan cemen t) Not Available [facility] (Lab) [address] [facility], [place], [address], 06/14/2025 12:44:39 02/19/20 25 02/18/2025 US, obste tric, 2nd or 3rd trime ster No observ ation record ed. [facility] [address], [place], [address], 02/18/2025 18:22:42 02/19/20 25 02/18/2025 US, obste tric, 2nd or 3rd trime ster No observ ation record ed. [email or web address] [address], [place], [address], 02/19/2025 17:40:42 05/15/20 25 05/15/2025 US, obste tric, follo w-up No observ ation record ed. [facility] [address], [place], [address], 05/15/2025 18:01:07 05/15/20 25 05/15/2025 US, obste tric, follo w-up No observ ation record ed. janice [address], [place], [address], 05/16/2025 11:28:46 05/22/20 25 05/22/2025 US, abdom en, limit ed No observ ation record ed. [place] [id number] [facility] [address], [place], [address], 06/04/2025 15:25:14 05/22/20 25 05/22/2025 US, abdom en No observ ation record ed. [place] [id number] [facility] [address], [place], [address], 06/04/2025 15:24:46 06/10/20 25 06/10/2025 imagi ng/di agnos tic resul t No observ ation record ed. JAYDE [address], [place], [address], 06/11/2025 18:24:22 06/10/20 25 06/10/2025 US, obste tric, follo w-up No observ ation record ed. [email or web address] [address], [place], [address], 06/10/2025 18:15:52 Result Notes None recorded. Problems Name Problem SNOMED Code Status Onset Date Resolution Date Notes Provider Name and Address Organization Details Recorded Time Rubella non-immun e 096227509 Active 2024 MMR vaccine pp Jessica box, [place] - [facility] 10:05:31 Asthma 095574279 Active 2024 Shayna Davison CNM [address], [place], [address], [facility] 15:56:57 06823276 Active 2024 Rosa box, [facility] 15:33:14 Asthma 864816831 Active 2024 Shayna Davison CNM [address], [place], [address], [facility] 15:56:57 Body mass index 30+ - obesity 273079106 Active 2024 Starting BMI of around 32, 36 in the 3rd trimester . Thirty-tw o week growth ultrasoun d. Consider testing at 37 weeks Brian Caro MD [address], [place], [address], [facility] 17:54:15 Problem Notes None recorded. Procedures Surgical History Date Name Laterality Status Provider Name and Address Organization Details Recorded Time 12/25/2024 Date of Last Pap Smear completed Petra Dill [facility] 12/25/2024 19:40:01 Imaging Results None recorded. [...] Updated DateTime 06/10/2025 158.75 cm 38.7 kg/m2 70683.36 g 105/73 mm[Hg] Beatriz Early [facility] 06/10/2025 18:02:37 Social History Question Answer Notes LastModified by Organizat ion Details LastModified Time Tobacco Smoking Status Former Smoker Petra box, [facility] 12/25/2024 19:41:56 Do You Have An Advance Directive? No [email or web address] Information not available 12/25/2024 If You Are , What Was Your Level Of Alcohol Consumption Prior To ? Occasional [email or web address] Information not available 12/25/2024 Are You Blind Or Do You Have Difficulty Seeing? No [email or web address] Information not available 12/25/2024 What Is Your Level Of Caffeine Consumption? Occasional [email or web address] Information not available 12/25/2024 In The 14 Days Before Symptom Onset, Have You Had Close Contact With A Laboratory-[facility] While That Case Was Ill? No [email or web address] Information not available 12/25/2024 In The 14 Days Before Symptom Onset, Have You Had Close Contact With A Person Who Is Under Investigation For COVID-19 While That Person Was Ill? No [email or web address] Information not available 12/25/2024 Have You Been To An Area Known To Be High Risk For COVID-19? No [email or web address] Information not available 12/25/2024 Are You Deaf Or Do You Have Serious Difficulty Hearing? No [email or web address] Information not available 12/25/2024 What Type Of Diet Are You Following? REGULAR [email or web address] Information not available 12/25/2024 What Is The Highest Grade Or Level Of School You Have Completed Or The Highest Degree You Have Received? BD10041-4 [email or web address] Information not available 12/25/2024 Are There Any Guns Present In Your Home? No [email or web address] Information not available 12/25/2024 Do You Use Protection During Sex? No [email or web address] Information not available 12/25/2024 Do You Use Your Seat Belt Or Car Seat Routinely? Yes [email or web address] Information not available 12/25/2024 Do You Have Smoke And Carbon Monoxide Detectors In Your Home? Yes [email or web address] Information not available 12/25/2024 How Much Tobacco Do You Smoke? No [email or web address] Information not available 12/25/2024 Do You Use Sunscreen Routinely? Yes [email or web address] Information not available 12/25/2024 Has Tobacco Cessation Counseling Been Provided? No [email or web address] Information not available 12/25/2024 Have You Used IV Drugs? No [email or web address] Information not available 12/25/2024 Do You Have Difficulty Walking Or Climbing Stairs? No [email or web address] Information not available 12/25/2024 Sex: Unknown Functional Status Question Answer Note LastModified by Organizat ion Details LastModified Time Do you use any illicit or recreational drugs? No [email or web address] Information not available 12/25/2024 Do you or have you ever used any other forms of tobacco or nicotine? No [email or web address] Information not available 12/25/2024 What is your level of alcohol consumption? None [email or web address] Information not available 12/25/2024 Are you able to walk independently without assistance or assistive devices? YESWOREST [email or web address] Information not available 12/25/2024 Are you able to care for yourself independently? 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 No [email or web address] Information not available 12/25/2024 What is your exercise level? Occasional [email or web address] Information not available 12/25/2024 Mental Status Question Answer Note LastModified by Organization D etails LastModified Time Do you feel stressed (tense, restless, nervous, or anxious, or unable to sleep at night)? [id number] [email or web address] Information not available 12/25/2024 Family History Relationship Description Onset Age of this Age Resolved Age Notes LastModified by Organization Details LastModified Time Unspecified Relation Family history unknown [email or web address] Not available 12/25 15:33:59 Maternal Uncle Diabetes [...] ICD10 Code Diagnosis IMO Codes Diagnosis Note [id number] Brian Caro MD [place] [address],[place] [address] 05/15/2025 15:29:36 05/15/2025 16:23:43 Observational assessment 455373870 Z03.74 Z3A.32 [id number] Brian Caro MD [place] [address],[place] [address] 05/15/2025 15:29:46 05/15/2025 16:50:15 Third trimester 86535293 Z34.03 [id number] YESSY KENT MD [place] [address],[place] [address] 05/30/2025 14:18:37 05/30/2025 16:00:35 Body mass index 30+ - obesity 002721546 E66.9 0534964 Asthma 249745257 J45.90 9 [id number] - well controlled Gestation period, 34 weeks 33258293 Z3A.34 7509569 - continue PNV [id number] YESSY KENT MD [place] [address],[place] [address] 06/10/2025 17:18:53 06/11/2025 08:25:12 Maternal obesity complicating , childbirth and the puerperium, antepartum 0059753617 07 O99.210 Z03.74 Z3A.35 [id number] YESSY KENT MD [place] [address],[place] [address] 06/10/2025 17:19:25 06/11/2025 08:24:29 Gestation period, 36 weeks 76230472 Z3A.36 3721595 Body mass index 30+ - obesity 033868140 E66.9 [id number] Health Concerns Section Related Observation LastModified by Organization Detai ls LastModified Time None Recorded Concern Status LastModified by Organization Details LastModified Time None Recorded Payers Encounter Date Sequence Insurance Name Policy Number Policy Mejia Covered Member ID Mejia Member ID Guarantor Name 06/10/2025 1 [facility] (MEDICAID REPLACEMENT - HMO) Anusha Mohan [id number] Anusha Mohan Notes Date Note Type Note Provider Name and Address Organization Details Recorded Time 06/10/2025 text/html Generic HPI TemplateReported by Patient YESSY KENT MD [address], [place], [address], [facility] 06/10/2025 18:13:59 OBGyn Episode Ob Episode Information Episode Created Date Number of Fetuses Patient Bloodtype Patient rh Status Prepregnancy Weight lbs Domestic Partner Domestic Partner Phone Father Name Contract Technical Writer Status 01/25/20 25 1 O Positive 187 OPEN Fetus Data First Name Last Name Admitted to NICU Weight (g) Sex Living Outcome Pediatric Complications Fetus ID Race Codes Race Delivery Type [id number] Problems Problem Notes first - bASA daily Problem Name Start Date End Date Resolution Snomed Code Not e Asthma 01/24/2025 925392142 Body mass index 30+ - obesity 04/30/2025 138309644 Starting BMI of around 32, 36 in [...] Type Weight in lbs Pre/Post Dialysis Refused 185.070746094787 BP Diastolic BP Location Tested BP Systolic BP Type 85 L arm 132 sitting Fetus Heart Rate Present Fetus Movement A No Comments reviewed history, first preg Brenda nieves since 12 weeks, ok for claritin, b6 [...] Weight in lbs Pre/Post Dialysis Refused Weight 188.748557664913 BP Diastolic BP Location Tested BP Systolic [...] Weight in lbs Pre/Post Dialysis Refused Weight 195.389918837780 BP Diastolic BP Location Tested BP Systolic [...] Weight in lbs Pre/Post Dialysis Refused Weight 203.734013883574 BP Diastolic BP Location Tested BP Systolic [...] Type Weight in lbs Pre/Post Dialysis Refused 204.011553685118 BP Diastolic BP Location Tested BP Systolic [...] Type Weight in lbs Pre/Post Dialysis Refused 209.663475310229 BP Diastolic BP Location Tested BP Systolic [...] Weight in lbs Pre/Post Dialysis Refused Weight 211.654966037584 BP Diastolic BP Location Tested BP Systolic BP Type 63 L arm 113 sitting Fetus Heart Rate Present A 145 Fetus Movement A Yes Comments Was seen at [facility] for pre term contractions, started on Procardia [...] Weight in lbs Pre/Post Dialysis Refused Weight 215.952576444468 BP Diastolic BP Location Tested BP Systolic [...] Weight in lbs Pre/Post Dialysis Refused Weight 215.834868982181 BP Diastolic BP Location Tested BP Systolic [...] Weight in lbs Pre/Post Dialysis Refused Weight 220.659469710086 BP Diastolic BP Location Tested BP Systolic [...]
--- OUTSIDE RECORDS SUMMARY | 2025-07-02 17:06 | XMS_ITS | Continuity of Care Document ---
Author Organization [facility] [place] Address [address] [place] [address] Assessment No assessment recorded. Plan of Treatment [...] Lab: [facility] [address] [facility] [address] Tel: [phone] CULTU RE ----- ----- ----- --- No growt h in 1 day (dete ction level of 10,00 0 colon ies / ml.) Not Available [facility] (Lab) [address], [place], [address], 01/25/2025 22:30:24 04/18/20 25 04/18/2025 HEMAT OCRIT (HCT) HCT 35.3 % (based on docume nted legal sex) 34.0-4 5.0 Not Available [facility] (Lab) [address] [facility], [place], [address], 04/19/2025 11:56:39 04/18/20 25 04/18/2025 HEMOG LOBIN (HGB) HGB 11.9 g/dL (based on docume nted legal sex) 11.6-1 5.4 Not Available [facility] (Lab) [address] [facility], [place], [address], 04/19/2025 11:56:39 04/18/20 25 04/18/2025 GTT - GESTA EMILY L CHRIS N, ACOG OB glucose, 1 hour screen 89 mg/dL 70-135 Not Available [facility] (Lab) [address] [facility], [place], [address], 04/19/2025 11:56:39 04/18/20 25 04/18/2025 HIV 1/2 ANTIG EN/AN TIBOD Y, REFLE X CONFI RMATI ON HIV antigen/anti body Nonrea ctive nonrea ctive HIV-1 antig en and HIV-1 /HIV- 2 antib odies were not detec franci. No labor atory evide nce of HIV infec tion. Not Available [facility] (Lab) [address] [facility], [place], [address], 04/19/2025 11:56:40 04/18/20 25 04/18/2025 RPR SCREE N, REFLE X TITER /CONF IRMAT ION RPR qualitative Nonrea ctive nonrea ctive Not Available [facility] (Lab) [address] [facility], [place], [address], 04/19/2025 11:56:40 02/19/20 25 02/18/2025 US, obste tric, 2nd or 3rd trime ster No observ ation record ed. [facility] [address], [place], [address], 02/18/2025 18:22:42 02/19/20 25 02/18/2025 US, obste tric, 2nd or 3rd trime ster No observ ation record ed. [email or web address] [address], [place], [address], 02/19/2025 17:40:42 05/15/20 25 05/15/2025 US, obste tric, follo w-up No observ ation record ed. [facility] [address], [place], [address], 05/15/2025 18:01:07 05/15/20 25 05/15/2025 US, obste tric, follo w-up No observ ation record ed. [email or web address] [address], [place], [address], 05/16/2025 11:28:46 05/22/2005/22/2025 US, abdom en, limit ed No observ ation record ed. [address] [facility], [place], [address], 06/04/2025 15:25:14 05/22/20 25 05/22/2025 US, abdom en No observ ation record ed. [address] [facility], [place], [address], 06/04/2025 15:24:46 06/10/20 25 06/10/2025 imagi ng/di agnos tic resul t No observ ation record ed. JAYDE [address], [place], [address], 06/11/2025 18:24:22 06/10/20 25 06/10/2025 US, obste tric, follo w-up No observ ation record ed. [facility] [address], [place], [address], 06/10/2025 18:15:52 Result Notes None recorded. Problems Name Problem SNOMED Code Status Onset Date Resolution Date Notes Provider Name and Address Organization Details Recorded Time Rubella non-immun e 263904525 Active 2024 MMR vaccine pp Jessica Elena box, [facility] 10:05:31 Asthma 259035102 Active 2024 Shayna Davison CNM [address], [place], [address], [facility] 15:56:57 81356241 Active 2024 Rosa box, [facility] 15:33:14 Asthma 267719421 Active 2024 Shayna Davison, BERONICA [address], [place], [address], [facility] 15:56:57 Body mass index 30+ - obesity 680772457 Active 2024 Starting BMI of around 32, 36 in the 3rd trimester . Thirty-tw o week growth ultrasoun d. Consider testing at 37 weeks Brian Caro MD [address], [place], [address], [facility] 17:54:15 Problem Notes None recorded. Procedures Surgical History Date Name Laterality Status Provider Name and Address Organization Details Recorded Time 12/25/2024 Date of Last Pap Smear completed Petra Dill [facility] 12/25/2024 19:40:01 Imaging Results None recorded. [...] Updated DateTime 04/18/2025 158.75 cm 36.5 kg/m2 68353.25 g 111/78 mm[Hg] Beatriz Early [facility] 04/18/2025 12:08:30 Social History Question Answer Notes LastModified by Organizat ion Details LastModified Time Tobacco Smoking Status Former Smoker Petra Dill [facility] 12/25/2024 19:41:56 Do You Have An Advance Directive? No [email or web address] Information not available 12/25/2024 If You Are , What Was Your Level Of Alcohol Consumption Prior To ? Occasional [email or web address] Information not available 12/25/2024 Are You Blind Or Do You Have Difficulty Seeing? No [email or web address] Information not available 12/25/2024 What Is Your Level Of Caffeine Consumption? Occasional [email or web address] Information not available 12/25/2024 In The 14 Days Before Symptom Onset, Have You Had Close Contact With A Laboratory-confir med COVID-19 While That Case Was Ill? No [email or web address] Information not available 12/25/2024 In The 14 Days Before Symptom Onset, Have You Had Close Contact With A Person Who Is Under Investigation For COVID-19 While That Person Was Ill? No [email or web address] Information not available 12/25/2024 Have You Been To An Area Known To Be High Risk For COVID-19? No Information not available 12/25/2024 Are You Deaf Or Do You Have Serious Difficulty Hearing? No [email or web address] Information not available 12/25/2024 What Type Of Diet Are You Following? REGULAR [email or web address] Information not available 12/25/2024 What Is The Highest Grade Or Level Of School You Have Completed Or The Highest Degree You Have Received? [id number] [email or web address] Information not available 12/25/2024 Are There Any Guns Present In Your Home? No [email or web address] Information not available 12/25/2024 Do You Use Protection During Sex? No [email or web address] Information not available 12/25/2024 Do You Use Your Seat Belt Or Car Seat Routinely? Yes [email or web address] Information not available 12/25/2024 Do You Have Smoke And Carbon Monoxide Detectors In Your Home? Yes [email or web address] Information not available 12/25/2024 How Much Tobacco Do You Smoke? No Information not available 12/25/2024 Do You Use Sunscreen Routinely? Yes Information not available 12/25/2024 Has Tobacco Cessation Counseling Been Provided? No [email or web address] Information not available 12/25/2024 Have You Used IV Drugs? No [email or web address] Information not available 12/25/2024 Do You Have Difficulty Walking Or Climbing Stairs? No [email or web address] Information not available 12/25/2024 Sex: Unknown Functional Status Question Answer Note LastModified by Organizat ion Details LastModified Time Do you use any illicit or recreational drugs? No [email or web address] Information not available 12/25/2024 Do you or have you ever used any other forms of tobacco or nicotine? No [email or web address] Information not available 12/25/2024 What is your level of alcohol consumption? None Information not available 12/25/2024 Are you able to walk independently without assistance or assistive devices? YESWOREST [email or web address] Information not available 12/25/2024 Are you able to care for yourself independently? 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 No [email or web address] Information not available 12/25/2024 What is your exercise level? Occasional [email or web address] Information not available 12/25/2024 Mental Status Question Answer Note LastModified by Organization D etails LastModified Time Do you feel stressed (tense, restless, nervous, or anxious, or unable to sleep at night)? [id number] [email or web address] Information not available 12/25/2024 Family History Relationship Description Onset Age of this Age Resolved Age Notes LastModified by Organization Details LastModified Time Unspecified Relation Family history unknown [email or web address] Not available 12/25 15:33:59 Maternal Uncle Diabetes [...] ICD10 Code Diagnosis IMO Codes Diagnosis Note [id number] YESSY KENT MD [place] [address] [address] 03/19/2025 17:09:54 03/19/2025 17:26:10 Second trimester 47797280 Z34.02 [id number] YESSY KENT MD [place] [address] [address] 04/18/2025 11:56:56 04/18/2025 12:41:40 Third trimester 06711862 Z34.03 [id number] - continue PNV- GCT and labs drawn today Health Concerns Section Related Observation LastModified by Organization Detai ls LastModified Time None Recorded Concern Status LastModified by Organization Details LastModified Time None Recorded Payers Encounter Date Sequence Insurance Name Policy Number Policy Mejia Covered Member ID Mejia Member ID Guarantor Name 04/18/2025 1 [facility] (MEDICAID REPLACEMENT - HMO) Anusha Mohan [id number] Anusha Mohan Notes Date Note Type Note Provider Name and Address Organization Details Recorded Time 04/18/2025 text/html Generic HPI TemplateReported by Patient YESSY KENT MD [address], [place], [address], [place] [facility] 04/18/2025 12:35:24 OBGyn Episode Ob Episode Information Episode Created Date Number of Fetuses Patient Bloodtype Patient rh Status Prepregnancy Weight lbs Domestic Partner Domestic Partner Phone Father Name Project Development Leader Status 01/25/20 25 1 O Positive 187 OPEN Fetus Data First Name Last Name Admitted to NICU Weight (g) Sex Living Outcome Pediatric Complications Fetus ID Race Codes Race Delivery Type [id number] Problems Problem Notes first - bASA daily Problem Name Start Date End Date Resolution Snomed Code Not e Asthma 01/24/2025 [id number] Body mass index 30+ - obesity 04/30/2025 550306538 Starting BMI of around 32, 36 in [...] Type Weight in lbs Pre/Post Dialysis Refused 185.615933604955 BP Diastolic BP Location Tested BP Systolic [...] Weight in lbs Pre/Post Dialysis Refused Weight 188.861750000818 BP Diastolic BP Location Tested BP Systolic [...] Weight in lbs Pre/Post Dialysis Refused Weight 195.800430783984 BP Diastolic BP Location Tested BP Systolic [...] Weight in lbs Pre/Post Dialysis Refused Weight 203.908509551056 BP Diastolic BP Location Tested BP Systolic [...] Type Weight in lbs Pre/Post Dialysis Refused 204.247458265102 BP Diastolic BP Location Tested BP Systolic [...] Type Weight in lbs Pre/Post Dialysis Refused 209.728447598090 BP Diastolic BP Location Tested BP Systolic [...] Weight in lbs Pre/Post Dialysis Refused Weight 211.671901759389 BP Diastolic BP Location Tested BP Systolic BP Type 63 L arm 113 sitting Fetus Heart Rate Present A 145 Fetus Movement A Yes Comments Was seen at [facility] for pre term contractions, started on Procardia [...] Weight in lbs Pre/Post Dialysis Refused Weight 215.150443682957 BP Diastolic BP Location Tested BP Systolic [...] Weight in lbs Pre/Post Dialysis Refused Weight 215.265438852466 BP Diastolic BP Location Tested BP Systolic [...] Weight in lbs Pre/Post Dialysis Refused Weight 220.352720793687 BP Diastolic BP Location Tested BP Systolic [...]
--- OUTSIDE RECORDS SUMMARY | 2025-07-02 17:06 | XMS_ITS | Data Portability ---
Author Organization Shalom MCDONOUGH Address [address] [facility] [facility] [place] [address] Assessment Encounter Date Assessment Date Assessment LastModified [...] DO Not Attach Compendium, Do Not Delete/merge, [id number] 4 12:44:56 pap, IG + reflex HPV 2021 022 [place] [facility], [address], [address], [place], [address], 14:13:27 bacterial vaginosis score, GOLDEN+probe, vaginal fluid (OBS) 2021 022 [place] [facility], [address], [address], [place], [address], 14:13:26 Referral None recorded. Procedures None recorded. Surgeries None recorded. Imaging None recorded. Medication Orders albuterol sulfate 2.5 mg/3 mL (0.083 %) solution for nebulizatio n 2024 025 [id number] [facility], [address] [place] [address], [address], 5 12:22:18 albuterol sulfate HFA 90 mcg/actuati on aerosol inhaler 2024 025 [facility] [address] [facility], [address] [place] [address], [address], 5 12:22:18 fluticasone propionate 110 mcg/actuati on HFA aerosol inhaler 2024 025 [facility] [address] [facility], [address] [place] [address], [address], 5 12:22:18 montelukast 10 mg tablet 2024 025 [facility] [address] [facility], [address] [place] [address], [address], 5 12:22:17 drospirenon e 3 mg-ethinyl estradiol 0.02 mg tablet 2023 024 [facility] [address], [address] [place] [address], [address], 4 22:43:33 montelukast 10 mg tablet 2023 024 [facility] [address] [facility], [address] [place] [address], [address], 4 18:07:20 fluticasone propionate 220 mcg/actuati on HFA aerosol inhaler 2023 024 [facility] [address], [address], 4 18:07:20 albuterol sulfate 2.5 mg/3 mL (0.083 %) solution for nebulizatio n 2022 023 [facility] [address] [facility], [address] [place], [address], 3 15:06:33 albuterol sulfate HFA 90 mcg/actuati on aerosol inhaler 2022 023 [facility] [address] [facility], [address] [place] [address], [address], 3 15:06:30 Flovent HFA 110 mcg/actuati on aerosol inhaler 2022 023 [facility] [address], [address] [place] [address], [address], 5 12:18:18 montelukast 10 mg tablet 2022 023 [facility] [address] [facility], [address] [place] [address], [address], 3 15:06:33 Patient TargetsNo targets recorded. Patient Instructions Encounter Date Encounter Id Patient Instructions Last Modified By Organization Details Last Modified Time 02/01/2023 [id number] A healthy lifestyle: care instructions [email or web address] Not available 02/01/2023 15:06:19 02/19/2024 [id number] learning about asthma [email or web address] Not available 02/19/2024 18:07:18 02/26/2024 [id number] On the date of this encounter, I was immediately available to assist the resident/fellow in the care of the patient, and have reviewed and agree with the resident s findings and plan of care. ~MD Kevin [email or web address] Not available 02/26/2024 10:38:55 12/25/2024 [id number] A healthy lifestyle: care instructions [email or web address] Not available 12/25/2024 14:47:54 Reason for Referral None Reported. Results Created Date Observation Date Name Description Value Unit Range Abnormal Flag Note LastModifiedBy Organization Detail LastModifiedTime 03/17/20 22 03/23/2022 NUSWA B VG+, HSV atopobium vaginae High - 2 score abnormal Not Available [facility] ([facility]) [address] [facility], [place], [address], 03/23/2022 14:13:25 03/17/20 22 03/23/2022 NUSWA B VG+, HSV bvab 2 High - 2 score abnormal Not Available [facility] ([facility]) [address] [facility], [place], [address], 03/23/2022 14:13:25 03/17/20 22 03/23/2022 NUA B [...] Drug Admin istra tion. Not Available [facility] ([facility]) [address] [facility], [place], [address], 03/23/2022 14:13:25 03/17/20 22 03/23/2022 NUA B VG+, HSV juliano albicans, GOLDEN Negati ve negati ve Not Available [facility] ([facility]) [address] [facility], [place], [address], 03/23/2022 14:13:25 03/17/20 22 03/23/2022 NUSWA B VG+, HSV juliano glabrata, GOLDEN Negati ve negati ve Not Available [facility] ([facility]) [address] [place], [address], 03/23/2022 14:13:25 03/17/20 22 03/23/2022 NUA B VG+, HSV trich vag by GOLDEN Negati ve negati ve Not Available [facility] ([facility]) [address] [facility], [place], [address], 03/23/2022 14:13:25 03/17/20 22 03/23/2022 NUSWA B VG+, HSV chlamydia trachomatis, GOLDEN Negati ve negati ve Not Available [facility] ([facility]) [address] [facility], [place], [address], 03/23/2022 14:13:25 03/17/20 22 03/23/2022 NUA B VG+, HSV neisseria gonorrhoeae, GOLDEN Negati ve negati ve Not Available [facility] ([facility]) [address] [facility], [place], [address], 03/23/2022 14:13:25 03/17/20 22 03/23/2022 NUA B VG+, HSV hsv 1 GOLDEN Negati ve negati ve Not Available [facility] ([facility]) [address] [facility], [place], [address], 03/23/2022 14:13:25 03/17/20 22 03/23/2022 NUSWA B VG+, HSV hsv 2 GOLDEN Negati ve negati ve Not Available [facility] ([facility]) [address] [place], [address], 03/23/2022 14:13:25 03/17/20 22 03/18/2022 IGP,A PTIMA HPV,A GE GDLN age gdln acog testing 21-29 Not Available [facility] ([facility]) [address] [place], [address], 03/23/2022 14:13:27 03/17/20 22 03/23/2022 IGP,A PTIMA HPV,A GE GDLN diagnosis: Trey CASIANO FOR INTRA EPITH ELIAL LESIO N OR FIDELIA MOE . Not Available [facility] ([facility]) [address] [place], [address], 03/23/2022 14:13:27 03/17/20 22 03/23/2022 IGP,A PTIMA HPV,A GE GDLN specimen adequacy: Trey evans Satis facto ramon for evalu ation . Endoc ervic al and/o r squam ous metap lasti c cells (endo cervi indu compo nent) are prese nt. Not Available [facility] ([facility]) [address] [place], [address], 03/23/2022 14:13:27 03/17/20 22 03/23/2022 IGP,A PTIMA HPV,A GE GDLN clinician provided ICD10: Trey evans Z01.4 19 Not Available [facility] ([facility]) [address] [place], [address], 03/23/2022 14:13:27 03/17/20 22 03/23/2022 IGP,A PTIMA HPV,A GE GDLN performed by: Trey Donaldson th, Cytot echgloria zabala t (ASCP ) Not Available [facility] ([facility]) [address] [place], [address], 03/23/2022 14:13:27 03/17/20 22 03/23/2022 IGP,A PTIMA HPV,A GE GDLN . . Not Available [facility] ([facility]) [address] [place], [address], 03/23/2022 14:13:27 03/17/20 22 03/23/2022 IGP,A PTIMA [...] ts do occur . Not Available [facility] ([facility]) [address] [place], [address], 03/23/2022 14:13:27 03/17/20 22 03/23/2022 IGP,A PTIMA HPV,A GE GDLN test methodology: Commen t This liqui d based ThinP rep(R ) pap test was xu riggs with the use of an image guide janiya ty. Not Available [facility] ([facility]) [address] [place], [address], 03/23/2022 14:13:27 03/17/20 22 03/23/2022 IGP,A PTIMA HPV,A GE GDLN . Commen t The HPV DNA refle x crite efrain were not met with this speci men resul t there fore, no HPV testi ng was perfo rmed. Not Available [facility] ([facility]) [address] [place], [address], 03/23/2022 14:13:27 02/26/20 24 02/26/2024 pregn seng test, urine HCG negati ve Not Available In-Office Order Internal Use Only DO Not Attach Compendium DO Not Attach Compendium, Do Not Delete/merge, [id number] 02/26/2024 11:11:33 04/18/20 25 04/19/2025 HIV 1+2 AB + HIV 1 p24 Ag, quali tativ e immun oassa y, serum HIV 1+2 Ab + HIV 1 P24 Ag, qualitative immunoassay, serum Nonrea ctive text: nonrea ctive Not Available Not Available 06/23/2025 04:23:27 04/18/20 25 04/19/2025 HIV 1+2 AB + HIV 1 p24 Ag, quali tativ e immun oassa y, serum HIV-1 antigen and HIV-1/HIV-2 antibodies were not detected. no laboratory evidence of HIV infection. HIV-1 antige n and HIV-1/ HIV-2 antibo dies were not detect ed. No labora tory eviden ce of HIV infect ion. Not Available Not Available 04:23:27 04/18/2004/19/2025 HIV 1+2 AB + HIV 1 p24 Ag, quali tativ e immun oassa y, serum lab interpretati on Normal Not Available Not Available 02/2025 04:23:27 04/18/2004/19/2025 RPR (rapi d plasm a reagi n), serum RPR (rapid plasma reagin), serum Nonrea ctive text: nonrea ctive Not Available Not Available 06/23/2025 04:23:27 04/18/2004/19/2025 RPR (rapi d plasm a reagi n), serum lab interpretati on Normal Not Available Not Available 02/2025 04:23:27 04/18/2004/18/2025 RPR (rapi d plasm a reagi n), serum RPR qualitative Nonrea ctive text: nonrea ctive Not Available Not Available 06/23/2025 04:23:29 04/18/2004/18/2025 HIV 1+2 AB + HIV 1 p24 Ag, quali tativ e immun oassa y, serum HIV antigen/anti body Nonrea ctive text: nonrea ctive HIV-1 antig en and HIV-1 /HIV- 2 antib odies were not detec franci. No labor atory evide nce of HIV infec tion. Not Available Not Available 06/23/2025 04:23:29 04/18/2004/18/2025 gluco se fish ance test, gesta yunior l panel OB glucose, 1 hour screen 89 mg/dL text: 70-135 Not Available Not Available 06/23/2025 04:23:29 04/18/20 25 04/18/2025 hemog lobin (Hb), blood HGB 11.9 g/dL text: (based on docume nted legal sex) 11.6-1 5.4 Not Available Not Available 06/23/2025 04:23:29 04/18/20 25 04/18/2025 hemat ocrit , blood HCT 35.3 % text: (based on docume nted legal sex) 34.0-4 5.0 Not Available Not Available 06/23/2025 04:23:29 06/11/20 25 06/11/2025 strep tococ cus group B, cultu re, unspe cifie d speci men result report SEE RESULT S BELOW Test: Cultu re: Group B Strep , Refle x Susce ptibi lity ([facility]/ [facility] ) Speci men Sourc e: Vagin a/Rec bev Speci men Type: Vagin al/Re ctal Speci men Date: 06/11 0816 Resul t Date: 06/14 1140 Resul t Statu s: Final resul t Abnor mal: No Resul ting Lab: [facility] [address] [facility] [address] Tel: CULTU RE ----- ----- ----- --- No Group B strep isola franci at 2 days (earl ctive broth enhan cemen t) Not Available Not Available 06/23/2025 04:23:29 05/22/2005/22/2025 US, abdom en, limit ed No observ ation record ed. [address], [place], [address], 06/12/2025 11:06:32 Result Notes None recorded. 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 Petra Duron [place], [place] - [facility] 5 16:55:32 Vaginal pain 37462088 Completed 12/19/2018 David Ornelas null[place] - [facility] 9 16:02:56 Bacterial vaginosis 320348614 Active Jil [place] [facility] 5 17:31:03 Group B Streptoco ccus carrier 57837665443 03 Completed 201812/27/2018 David Ornel[place] [facility] 9 19:27:34 Group B Streptoco ccus carrier 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 Procedures Surgical History Date Name Laterality Status Provider Name and Address Organization Details Recorded Time 02/26/20 24 IUD Removal completed ADAN APODACA DO Attn: Accounting,[address] [place], [address], [place] [facility] 02/26/2024 10:32:18 03/17/20 22 Date of Last Pap Smear completed Linda Iglesias MA [place] - [facility] 02/22/2024 09:04:27 03/19/20 19 IUD Replacement completed Diana Cristobal MA [place] - [facility] 03/19/2019 13:20:23 07/11/20 18 IUD Insertion completed Brittany Shabazz MD Attn: Accounting[address] [place], [address], [place] [facility] 07/11/2018 16:45:59 Imaging Results None recorded. Procedure [...] Not Available metronidaz ole 500 mg tablet TAKE 1 TABLET BY MOUTH TWICE A DAY FOR 7 DAYS 06/20 completed Not Available Not Available Not Available nifedipine ER 30 mg tablet,ext ended release TAKE 1 TABLET BY MOUTH EVERY DAY active Not Available Not Available No t Available valacyclov ir 500 mg tablet 07/11 [...] active Not Available Not Available Not Available metoclopra mide 5 mg tablet TAKE 1 TABLET BY MOUTH EVERY 6 HOURS NEEDED FOR NAUSEA AND VOMITING active Not Available Not Available No t Available IBU 600 mg tablet Take 1 [...] propionate 50 mcg/actuat ion nasal spray,susp ension Trout 1 spray every day by intranas al route. 01/26 completed Not Available Not Available Not Available sertraline 50 mg tablet Take 1 tablet every day by oral route for 30 days. 10/30 completed Not Available Not Available Not Available fluticason e propionate 110 mcg/actuat ion HFA aerosol inhaler Inhale 2 puff(s) twice a day by inhalati on route. active Not Available Not Available No t [...] (BMI) Body weight Heart rate Oxygen saturation Systolic And Diastolic Provider Name and Address Organization Details Last Updated DateTime 5 158.75 cm 33.7 kg/m2 70594.7 7 g 77 /min 99 % 124/87 mm[Hg] Izt Brennna MA [facility] 5 11:39:33 Date Recorded Body height Body mass index (BMI) Body weight Body temperature Oxygen saturation Heart rate Systolic And Diastolic Provider Name and Address Organization Details Last Updated DateTime 3 158.75 cm 35.8 kg/m2 58838.8 8 g 98.1 [degF] 98 % 76 /min 126/86 mm[Hg] Darby Lazo MA [facility] 3 14:48:11 Date Recorded Body height Body mass index (BMI) Body weight Heart rate Oxygen saturation Systolic And Diastolic Provider Name and Address Organization Details Last Updated DateTime 4 158.75 cm 37.8 kg/m2 95910.4 g 93 /min 98 % 122/86 mm[Hg] Darby Lazo MA [facility] 4 17:45:04 Date Recorded Body height Respiratory rate Body mass index (BMI) Body weight Oxygen saturation Heart rate Systolic And Diastolic Provider Name and Address Organization Details Last Updated DateTime 4 158.75 cm 20 /min 37.5 kg/m2 89667.9 3 g 97 % 97 /min 128/82 mm[Hg] Alonzo Pelletier [facility] 4 10:09:51 Date Recorded Body height Body mass index (BMI) Body weight Systolic And Diastolic Provider Name and Address Organization Details Last Updated DateTime 03/17/2022 158.75 cm 33.5 kg/m2 32740.18 g 112/82 mm[Hg] Linda Iglesias MA [facility] 03/17/2022 12:11:58 Social History Question Answer Notes LastModified by Organization Details LastModified Time Tobacco Smoking Status Never Smoker Linda Iglesias [place] null, [place] - [facility] 01/20/2020 17:07:59 Do You Have An Advance [...] With Others? With Others Lives With Mom [email or web address] Information not available 12/19/2018 Parent Involvement? Both [...] How Much Tobacco Do You Smoke? No [email or web address] Information not available 12/19/2018 General Stress Level Medium Information not available 09/27/2018 Do You Use Sunscreen Routinely? No Information not available 09/27/2018 Has Tobacco Cessation Counseling Been Provided? No [email or web address] Information not available 02/19/2024 On What Date Was Tobacco Cessation Counseling Provided? 12/25/2024 Information not available 12/25/2024 How Many Years Have You Smoked Tobacco? 0 [email or web address] Information not available 12/19/2018 Have You Used IV Drugs? No Information not available 09/29/2020 [facility] [address] [email or web address] Inform ation not available 09/06/2017 Sex: Unknown [...] Are you currently employed? 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 Never used electronic cigarettes Information not available 01/20/2020 What is your exercise level? Moderate [email or web address] Information not available 09/27/2018 Mental Status None recorded. Family History Relationship Description Onset Age of this Age Resolved Age Notes LastModified by Organization Details LastModified Time Paternal Uncle Diabetes mellitus [email or web address] Not available 2014 10:21:23 Maternal Grandmother Diabetes mellitus aparsley Not available 2014 10:21:23 Paternal Uncle Hypercholest erolemia aparsley Not available 2014 10:21:23 Sister Hypercholest erolemia aparsley Not available 2014 10:21:23 Medical History Condition Response Other Y High Blood Pressure N Breast Cancer N Thyroid Problems N Kidney or Bladder Problems N Blood Clots N Lung Disease [...] Recorded Time DTaP 2 completed Not Available [facility] 12/25/2024 11:23:27 HPV, quadrivalent 3 completed Not Available [facility] 12/25/2024 11:23:27 meningococcal MCV4P 8 completed Not Available [facility] 08/03/2019 02:35:17 meningococcal B, OMV 8 completed Not Available [facility] 08/03/2019 02:35:21 DTP 0 completed [...] [place], [place] null, [place] [facility] 10/31/2016 14:11:55 HPV, unspecified formulation 2 completed Nunu [place], [place], [place] [facility] 10/31/2016 14:12:08 HPV, unspecified formulation 3 completed Nunu YUNIEL [place] [facility] 10/31/2016 14:12:14 influenza, unspecified formulation 8 completed Nunu YUNIEL [place] [facility] 10/31/2016 14:12:28 influenza, unspecified formulation 0 completed Nunu [place] [facility] 10/31/2016 14:12:32 influenza, unspecified formulation 3 completed Nunu YUNIEL [place] [facility] 10/31/2016 14:12:37 Novel [id number] 0 completed Nunu [place]EL [place] [facility] 10/31/2016 14:12:57 MMR 1 completed Nunu [place]UN[place] [facility] 10/31/2016 14:13:12 MMR 5 completed Nunu YUNIEL [place] [facility] 10/31/2016 14:13:17 meningococcal ACWY, unspecified formulation 2 completed Nunu [place]UN[place]EL [place] [facility] 10/31/2016 14:15:01 Pneumococcal conjugate PCV 13 0 completed Nunu [place] [facility] 10/31/2016 14:15:17 Pneumococcal conjugate PCV 13 1 completed Nunu [place]UN[place]EL [place] [facility] 10/31/2016 14:15:21 Pneumococcal conjugate PCV 13 1 completed Nunu [place]UNIEL [place] [facility] 10/31/2016 14:15:30 Pneumococcal conjugate PCV 13 2 completed Nunu [place]UNIEL [place] [facility] 10/31/2016 14:15:35 polio, unspecified formulation 0 completed Nunu [place]UN[place]EL [place] [facility] 10/31/2016 14:15:46 polio, unspecified formulation 1 completed Nunu [place]UN[place]EL [place] [facility] 10/31/2016 14:15:50 polio, unspecified formulation 2 completed YUNIEL Benoit, ANIBAL - [facility] 10/31/2016 14:15:58 polio, unspecified formulation 5 completed YUNIEL Benoit, ANIBAL - [facility] 10/31/2016 14:16:03 Tdap 2 completed YUNIEL Benoit, ANIBAL [facility] 10/31/2016 14:16:14 varicella 2 completed YUNIEL Benoit, ANIBAL [facility] 10/31/2016 14:16:25 varicella 2 completed YUNIEL Benoit, ANIBAL [facility] 10/31/2016 14:16:30 Past Encounters Encounter ID Performer Location Encounter Start Date Encounter Closed Date Diagnosis/Indication Diagnosis SNOMED-CT Code Diagnosis ICD10 Code Diagnosis IMO Codes Diagnosis Note [id number] DO Navya Brunner (Peds) [address] [place] [address] 09/11/2014 16:17:52 09/12/2014 13:16:12 Intermittent asthma 570359190 Asthma action plan given with form to give medication at school. Prescripti on for albuterol at school. RTC if still using daily in 1 week. Viral syndrome 000801074 [place] ell hydrated. Supportive care discussed. RTC if fever >5 days or symptoms worsen. Discussed signs of dehydratio n. Note given to return to school tomorrow if no fever or vomiting in 24 hours. 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 Called [facility] and spoke with Dr. Amos who recommends seeing ophthalmshayna lutz today. Patient will see Dr. Su this morning in clinic at [facility]. Gave mother directions . Will not initiate treatment until seen by ophthalmshayna lutz. Intermittent asthma 655208354 Symptoms improved. Reminded patient to bring Asthma Action Plan and inhaler to school when she returns. RTC if symptoms worsen. Viral syndrome 038942595 W ell hydrated. Symptoms improving. Supportive care discussed. May return to school when cleared by opthalmolo gy. RTC if symptoms worsen. [id number] DO Navya Brunner (Peds) [address] [place] [address] 11/17/2014 16:18:09 11/18/2014 09:37:58 Vaginal pain 54657889 Instructed patient not to have sexual activity until results back. [id number] MD Navya Parekh (Peds) [address] [place] [address] 09/06/2017 10:15:52 09/06/2017 14:47:10 Well child visit 024458845 Z00.129 Adolescent anticipato ry guidance discussed: Healthy [...] lity for homework. Active or passive immunization 773705740 Z23 Diet education 37794430 Z71.3 Examinatio n for other specified condition 293638578 Z02.5 Mild persi stent asthma 318806100 J45.30 Increased asthma symptoms with albuterol use daily and nighttime wakenings. Will step up asthma therapy and reevaluate in 1 month. Asthma score of Atopic dermatitis 962865 01 L20.9 Areas of effected skin appear to have suffered from secondary infection with systemic herpetic infection. I would suggest having Anusha see a dermatolog ist to assess and treat possible herpetic eczema. She has had 3 outbreaks and with each one being in her eyes, her skin symptoms have increased. Major depr essive disorder 368667731 F32.9 After discussing with Anusha and her [...] plan and verbalize understand ing. Childhood obesity 054989 003 Z68.54 Discussed the importance of starting [...] progress of lifestyle changes. Difficulty sleeping 3013 23010 Z72.820 Anusha reports trouble falling alseep at [...] May try Melatonin 30 min before bed. [id number] Arturo Juarez MD [facility] (Peds) [address] [place] [address] 10/04/2017 10:29:38 10/05/2017 15:13:14 Major depressive disorder 227213426 F32.9 Anusha was started on 50 mg of Zoloft on 09/06/17 and she and mother report improvemen t in mood and anxiety, still having 1-2 down days a week. Anusha is to start counseling and make this a part of her therapy regimen.Shirlene daniels was started on Vit D replacemen t as well for low Vit D of 6.7Discuss ed plan to increase zoloft dose to 100 mg daily. PHQ-9 from 09/06=11PHQ -9 today= 10Mother and Anusha agree with plan and verbalize understand ing. Atopic dermatitis 156320 01 L20.9 Continues to have pruritic eczema [...] skin symptoms have increased. Overweight in childhood 870471032 Z68.54 Anusha up 3 lbs at todays [...] mood and appetite. Mild persi stent asthma 014978926 J45.30 Anusha reports significan t improvemen t in asthma symptoms. Has been taking Qvar 2 puffs twice daily and not needing to use rescue albuterol. Asthma score of 20 today in office. Will decrease Qvar to 1 puff twice a day and consider discontinu ing at follow up apt. Follow-up visit 74672622 9 Z09 Follow up for Depression , Asthma, weight, and skin issues [id number] Arturo Juarez MD [facility] (Peds) [address] [place] [address] 10/30/2017 10:21:51 10/30/2017 12:56:25 Major depressive disorder 533755827 F32.9 Anusha was increased on 100 mg [...] verbalize understand ing. Mild inter mittent asthma 927454159 J45.20 Anusha reports significan t improvemen t in asthma symptoms. Has been taking Flovent 1 puff twice daily and not needing to use rescue albuterol. Asthma score of 21 today in office. Will discontinu e Flovent, but keep Linda evans as mother and patient feel she gets relief and good controll with daily use. Instructed family if albuterol usage increases beyond 2 times per week for 2 weeks, it may been a sign of worsening control. Call office or go to ER for worsening cough, wheeze or work of breathing. Follow up in office in 3 months - family verbalized understand ing. [id number] MD Navya Polanco (DUST COLLECTOR ATTENDANT) [address] [place] [address] 68570-521 0 05/09/2018 11:29:35 05/10/2018 13:06:15 Family planning surveillance 503048660 Z30.09 Counseled patient about different forms of [...] advised to use condoms Gynecologi c examination 27119813 Z01.419 Age appropriat e counseling done. Venereal d isease screening 244767315 Z11.3 Overweight 725966188 E66 .3 Counseled About weight loss, diet and excercise. Advised patient to f/u with form maker plaster. Administra tion of influenza vaccine 89441377 Z23 Offerd. Patient refused. [id number] MD Navya Polanco (DUST COLLECTOR ATTENDANT) [address] [place] [address] [phone] 0 07/11/2018 15:47:16 07/11/2018 17:14:49 Insertion of intrauterine contraceptive device 99449099 Z30.430 Counseled about the procedure and its risks including infection, bleeding, damage to internal organs, indicated procedures . Patient verbalized understand ing. Consent signed which is in chart. Refer to procedure note. Advised patient to go to ER if bleeding more than a pad per hour, fever > 100.4, and severe pain. 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 Break-thro ugh bleeding 95538194 N92.1 The frequency and duration of unschedule d spotting decrease with continued use of IUD. offered non-steroi mesha antiinflam matory drug (NSAID) for 5 to 7 days. Notify to fill ibuprofen prescripti on. Venereal d isease screening 247252495 Z11.3 Patient refused blood work. [id number] [facility]LECTOR ATTENDANT) [address] [place] [address] [phone] 0 12/19/2018 14:40:40 12/21/2018 09:03:45 Family planning surveillance 565075529 Z30.09 Mirena IUD Surveillan ce of intrauterine device contraception done [id number] 21027 Z30.40 Bacterial vaginosis 4197 03199 N76.0 Generalize d anxiety disorder 68331841 F41.1 Exposure t o sexually transmissible disorder 342624384 Z20.2 [id number] David Ornelas MD [facility] (DUST COLLECTOR ATTENDANT) [address] [place] [address] [phone] 0 02/26/2019 10:04:43 02/28/2019 12:49:30 At increased risk of sexually transmitted infection 022534175 Z20.2 Family ulises nning surveillance 481118698 Z30.[address] reptococcus carrier 6439552144 103 Z22.330 Surveillan ce of intrauterine device contraception done 5092044313 54463 Z30.40 Mirena IUD [id number] David Ornelas MD [facility] (DUST COLLECTOR ATTENDANT) [address] [place] [address] [phone] 0 03/19/2019 12:05:29 03/20/2019 12:58:18 Replacement of intrauterine contraceptive device 98362098 Z30.433 NO URINALYSIS WAS DONE ON 03/19/2019 DUE TO NO U/A STRIPS IN OFFICE. MDS [facility] nning surveillance 773757132 Z30.09 [id number] MYLENE MCGARRY (DUST COLLECTOR ATTENDANT) [address] [place] [address] [phone] 0 05/15/2019 12:18:09 05/15/2019 21:54:01 Intermittent asthma 495556865 J45.20 Patient with intermitte nt usage of albuterol to control symptoms. Change in weather/al lergies seem to be a trigger of symptoms. Will try treating allergies as well. Advised pt that if albuterol usage increases to more than 2x/week for 2 weeks, may need to start daily inhaled corticoste roids. Gastroesop hageal reflux disease without esophagitis 871970901 K21.9 Likely GERD. Burning epigastric abdominal pain with radiation up esophagus. Associated with spicy food and vomiting. Counseled pt that spicy food, acidic foods, and caffeine can make symptoms worse. Advised pt not to eat within 2 hours of going to bed and to stay sitting up after meals. Start Pepcid as below. RTC if symptoms do not improve. Allergic rhinitis 414193 04 J30.9 [id number] MD Navya Erickson (DUST COLLECTOR ATTENDANT) [address] [place] [address] [phone] 0 01/20/2020 16:33:57 01/21/2020 08:15:52 Surveillance of intrauterine device contraception done 5980118593 48662 Z30.40 Kyleena IUD Exposure t o sexually transmissible disorder 596623967 Z20.2 [facility] nning surveillance 692869432 Z30.09 [id number] SHELIA ELY [address] [place] [address] 03/31/2020 10:42:17 04/01/2020 12:15:53 Suspected COVID-19 541108119 Z03.278 [id number] MD Navya Erickson (DUST COLLECTOR ATTENDANT) [address] [place] [address] [phone] 0 09/29/2020 10:08:12 10/12/2020 09:22:54 Abnormal uterine bleeding 1308780153 9100 N93.9 Family ulises nning surveillance 349842081 Z30.09 Surveillan ce of intrauterine device contraception done 0853936064 19104 Z30.40 Kyleena IUD [id number] MYLENE MCGARRY (DUST COLLECTOR ATTENDANT) [address] [place] [address] [phone] 0 10/09/2020 09:10:23 10/15/2020 10:00:02 Allergic rhinitis 99253415 J30.9 Change in weather/al lergies seem to be a trigger of asthma. RX for Flonase and cetirizine sent. Mild persi stent asthma 957113605 J45.30 Albuterol usage has increased to 4-5x weekly for greater than 2 weeks, will start daily inhaled corticoste roids (Flovent). Refilled Albuterol. [id number] MYLENE MCGARRY (DUST COLLECTOR ATTENDANT) [address] [place] [address] [phone] 10/13/2020 08:07:06 10/15/2020 11:31:39 Suspected COVID-19 688665553 Z20.828 Exposure to COVID-19, boyfriend' s Mom tested positive 10/11/20. Now pt symptomati c. Advised to complete COVID testing at [facility], orders placed. Mild persi stent asthma 261494988 J45.30 Using rescue inhaler 2-3x, wheezing after albuterol use. Recently started on Flovent 2 puffs 2x daily. Continue as prescribed . RX albuterol for nebulizer use. COVID testing as above. RTC if symptoms persist. ER precaution s discussed. [id number] MYLENE MCGARRY (DUST COLLECTOR ATTENDANT) [address] [place] [address] [phone] 01/26/2021 16:08:25 02/11/2021 11:47:21 Surveillance of intrauterine device contraception done 5192772052 53976 Z30.40 Kyleena inserted 2019. Strings visualized on speculum exam with no signs of expulsion. Candidiasis of vagina 72 058149 B37.3 Julaino noted on exam, rx fluconazol e. Pain in pelvis 48220821 R10.2 PE unremarkab le. Follow up TVUS to assess proper IUD placement and for other causes of pelvic pain. [id number] MD Navya Cabral (Adult Med) [address] [place] [address] [phone] 0 06/09/2021 12:22:22 06/11/2021 12:57:35 Intermittent asthma 269486733 J45.20 Restart singulair and continue Flovent. Discussed importance of inflammati on control [id number] MYLENE MCGARRY (DUST COLLECTOR ATTENDANT) [address] [place] [address] [phone] 0 03/17/2022 11:43:16 03/23/2022 15:15:19 Gynecologic examination 20676586 Z01.419 21 y/o female who presents for [...] Surveillan ce of intrauterine device contraception done 8283128061 72681 Z30.40 - Pt confused on Kyleena IUD duration as she was told it had to be removed in 3 years.- Reassured patient that the Kyleena IUD is good for 5 years and will not need it replaced for another 2 years. Pt acknowledg es understand ing- Encouraged safe sexual practices and condom use, as control does not protect against STIs [id number] MD Navya Cabral (Adult Med) [address] [place] [address] [phone] 0 02/01/2023 14:37:01 02/02/2023 15:38:31 Obesity 504920570 E66.9 Intermittent asthma 4276 52419 J45.20 [id number] MD Navya Cabral (Adult Med) [address] [place] [address] [phone] 0 02/19/2024 16:59:25 02/23/2024 20:21:19 Asthma 020139653 J45.503 [id number] MD Navya Mena (DUST COLLECTOR ATTENDANT) [address] [place] [address] 02/26/2024 09:59:41 03/07/2024 16:51:01 Contraception care management 881996526 Z30.8 Contemplat ing pregnancyR eviewed all forms of control with patient including risk factors and side effects. Counseled on STD transmissi on and prevention , condom use and prevention No nicotine/t obacco use or migraine headachesW ill start OCPCounsel ed on vitamin use Removal of intrauterine contraceptive device 6271194558 Z30.432 Tolerated wellCounse led patient on return of fertility [id number] MD Navay Cabral (Adult Med) [address] [place] [address] 12/25/2024 11:22:11 12/26/2024 09:45:46 Obese class I 8009594631 24602 E66.811 [id number] Intermittent asthma 4276 79038 J45.20 Will check with OB re safe meds during pregnacy Health Concerns Section Related Observation LastModified by Organization Detai ls LastModified Time None Recorded Concern Status LastModified by Organization Details LastModified Time None Recorded Advance Directives Directive N: Payers Insurance Date Sequence Insurance Name Policy Number Policy Mejia Covered Member ID Mejia Member ID Guarantor Name 06/20/2025 1 [facility] - DOS ON OR AFTER 21 (MEDICAID REPLACEMENT - HMO) Anusha Mohan [id number] Anusha Mohan 01/14/2020 1 [facility] (PPO) [id number] Anusha Mohan [id number] Anusha Mohan 06/23/2020 1 *SELF PAY* Na frances Mohan 09/28/2020 SLIDING FEE SCHEDULE - DISCOUNT Anusha Mohan 01/21/2021 1 [facility] - DOS PRIOR TO 2021 (MEDICAID REPLACEMENT - HMO) Anusha Mohan [id number] Anusha Mohan 06/23/2020 [place] [employer] Anusha Mohan [id number] Anusha Mohan 04/08/2015 1 [facility] (MEDICAID HMO) [id number] Anusha Mohan [id number] Anusha Mohan 01/14/2020 1 [place] Anusha Mohan [id number] Anusha Mohan 04/08/2015 1 [place] [facility] PUBLIC AID Anusha Mohan [id number] Anusha Mohan 11/08/2017 1 [place] [id number] Anusha Mohan [id number] Anusha Mohan Notes Date Note Type [...] a condom. MYLENE MCGARRY Attn: Accounting,[address] [place], [address], [place] [facility] 03/23/2022 15:12:42 3 text/html Wants her asthma medications refilled Luis Armando Freitas MD Attn: Accounting,[address] [facility], [place], [address], [place] [facility] 02/01/2023 15:07:16 4 text/html Here for asthma f/u. She has been using albuterol MDI frequently enough that she is running out. She misses montelukast dose frequently. 90 day rx was last filled at end of Jul 2023. Luis Armando Freitas MD Attn: Accounting,[address] [facility], [place], [address], [place] [facility] 02/19/2024 18:07:57 4 text/html [...] pill Jane Vidales MD Attn: Accounting,[address] [facility], [place], [address], [place] [facility] 03/04/2024 22:43:56 5 text/html Here for routine f/u . No new complaints. Seeing OB today for IUP Luis Armando Freitas MD Attn: Accounting,[address] [facility], [place], [address], [place] [facility] 12/25/2024 12:23:09 OBGyn Episode No OBEpisode recorded.
--- OUTSIDE RECORDS SUMMARY | 2025-07-02 17:06 | XMS_ITS | Data Portability ---
Author Organization [facility] Hall Address [address] [place] [address] [place] [address] Assessment No assessment recorded. Plan of Treatment Reminders Order Date Submit Date Provider Last Modified By Organization Details Last Modified Time Details Appointments OB ROUTINE 2024 03:15P Sandrita KENT MD Not available Not available Not available OB ROUTINE 2024 03:30P Sandrita KENT MD Not available Not available Not available Lab streptoco ccus group B, culture, unspecifi ed specimen [address] [facility] (Lab), [address], [place], [address], 06/14/2025 12:44:39 Referral None recorded. Procedures None recorded. Surgeries None recorded. Imaging US, obstetric , follow-up 2024 025 [email or web address], [address], [place], [address], 06/11/2025 16:32:31 Medication Orders None recorded. Patient TargetsNo targets recorded. Patient InstructionsNo instructions recorded. Reason for Referral None Reported. Results Created Date Observation Date Name Description Value Unit Range Abnormal Flag Note LastModifiedBy Organization Detail LastModifiedTime 06/11/2006/11/2025 CULTU RE: GROUP B STREP SCREE [...] t Abnor mal: No Resul ting Lab: [facility] [address] [facility] [address] Tel: CULTU RE ----- ----- ----- --- No Group B strep isola franci at 2 days (earl ctive broth enhan cemen t) Not Available [facility] (Lab) [address], [place], [address], 06/14/2025 12:44:39 05/15/20 25 05/15/2025 US, obste tric, follo w-up No observ ation record ed. [facility] [address], [place], [address], 05/15/2025 18:01:07 05/15/20 25 05/15/2025 US, obste tric, follo w-up No observ ation record ed. [email or web address] Lucretia [address], [place], [address], 05/16/2025 11:28:46 05/22/20 25 05/22/2025 US, abdom en, limit ed No observ ation record ed. [address], [address], 06/04/2025 15:25:14 05/22/20 25 05/22/2025 US, abdom en No observ ation record ed. [address] [place] [address], [place], [address], 06/04/2025 15:24:46 06/10/20 25 06/10/2025 imagi ng/di agnos tic resul t No observ ation record ed. JAYDE Lucretia [address], [place], [address], 06/11/2025 18:24:22 06/10/20 25 06/10/2025 US, obste tric, follo w-up No observ ation record ed. norris [place] [address], [place], [address], 06/10/2025 18:15:52 Result Notes None recorded. Problems Name Problem SNOMED Code Status Onset Date Resolution Date Notes Provider Name and Address Organization Details Recorded Time Rubella non-immun e 497084469 Active 2024 MMR vaccine pp Jessicadavid box, [facility] 10:05:31 Asthma 023715879 Active 2024 Shayna [place] CNM [address], [place], [address], [facility] 15:56:57 85585971 Active 2024 Rosa box, [facility] 15:33:14 Asthma 385748242 Active 2024 Shayna [place]ison, BERONICA [address], [place], [address], [facility] 15:56:57 Body mass index 30+ - obesity 646573952 Active 2024 Starting BMI of around 32, 36 in the 3rd trimester . Thirty-tw o week growth ultrasoun d. Consider testing at 37 weeks Brian Caro MD [address], [place], [address], [facility] 17:54:15 Problem Notes None recorded. Procedures Surgical History Date Name Laterality Status Provider Name and Address Organization Details Recorded Time 12/25/2024 Date of Last Pap Smear completed Petra Dill [facility] 12/25/2024 19:40:01 Imaging Results None recorded. [...] Updated DateTime 05/30/2025 158.75 cm 38 kg/m2 27132.99 g 113/63 mm[Hg] Beatriz [facility] 05/30/2025 14:27:10 Date Recorded Body height Body mass index (BMI) Body weight Systolic And Diastolic Provider Name and Address Organization Details Last Updated DateTime 06/10/2025 158.75 cm 38.7 kg/m2 23799.36 g 105/73 mm[Hg] [facility] 06/10/2025 18:02:37 Date Recorded Body height Body mass index (BMI) Body weight Systolic And Diastolic Provider Name and Address Organization Details Last Updated DateTime 06/18/2025 158.75 cm 38.7 kg/m2 63146.36 g 112/72 mm[Hg] [facility] 06/18/2025 13:09:26 Date Recorded Body height Body mass index (BMI) Body weight Systolic And Diastolic Provider Name and Address Organization Details Last Updated DateTime 06/23/2025 158.75 cm 39.6 kg/m2 52623.32 g 126/85 mm[Hg] SHEILA LEONARDO [facility] 06/23/2025 14:20:29 Social History Question Answer Notes LastModified by Organizat ion Details LastModified Time Tobacco Smoking Status Former Smoker Petra box, [facility] 12/25/2024 19:41:56 Do You Have An Advance Directive? No [email or web address] Information not available 12/25/2024 If You Are , What Was Your Level Of Alcohol Consumption Prior To ? Occasional [email or web address] Information not available 12/25/2024 Are You Blind Or Do You Have Difficulty Seeing? No [email or web address] Information not available 12/25/2024 What Is Your Level Of Caffeine Consumption? Occasional [email or web address] Information not available 12/25/2024 In The 14 Days Before Symptom Onset, Have You Had Close Contact With A Laboratory-confir med COVID-19 While That Case Was Ill? No [email or web address] Information not available 12/25/2024 In The 14 Days Before Symptom Onset, Have You Had Close Contact With A Person Who Is Under Investigation For COVID-19 While That Person Was Ill? No [email or web address] Information not available 12/25/2024 Have You Been To An Area Known To Be High Risk For COVID-19? No [email or web address] Information not available 12/25/2024 Are You Deaf Or Do You Have Serious Difficulty Hearing? No [email or web address] Information not available 12/25/2024 What Type Of Diet Are You Following? REGULAR [email or web address] Information not available 12/25/2024 What Is The Highest Grade Or Level Of School You Have Completed Or The Highest Degree You Have Received? [id number] [email or web address] Information not available 12/25/2024 Are There Any Guns Present In Your Home? No [email or web address] Information not available 12/25/2024 Do You Use Protection During Sex? No [email or web address] Information not available 12/25/2024 Do You Use Your Seat Belt Or Car Seat Routinely? Yes [email or web address] Information not available 12/25/2024 Do You Have Smoke And Carbon Monoxide Detectors In Your Home? Yes Information not available 12/25/2024 How Much Tobacco Do You Smoke? No [email or web address] Information not available 12/25/2024 Do You Use Sunscreen Routinely? Yes [email or web address] Information not available 12/25/2024 Has Tobacco Cessation Counseling Been Provided? No Information not available 12/25/2024 Have You Used IV Drugs? No [email or web address] Information not available 12/25/2024 Do You Have Difficulty Walking Or Climbing Stairs? No [email or web address] Information not available 12/25/2024 Sex: Unknown Functional Status Question Answer Note LastModified by Organizat ion Details LastModified Time Do you use any illicit or recreational drugs? No [email or web address] Information not available 12/25/2024 Do you or have you ever used any other forms of tobacco or nicotine? No [email or web address] Information not available 12/25/2024 What is your level of alcohol consumption? None [email or web address] Information not available 12/25/2024 Are you able to walk independently without assistance or assistive devices? YESWOREST [email or web address] Information not available 12/25/2024 Are you able to care for yourself independently? 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 No [email or web address] Information not available 12/25/2024 What is your exercise level? Occasional [email or web address] Information not available 12/25/2024 Mental Status Question Answer Note LastModified by Organization D etails LastModified Time Do you feel stressed (tense, restless, nervous, or anxious, or unable to sleep at night)? [id number] [email or web address] Information not available 12/25/2024 Family History Relationship Description Onset Age of this Age Resolved Age Notes LastModified by Organization Details LastModified Time Unspecified Relation Family history unknown [email or web address] Not available 12/25 15:33:59 Maternal Uncle Diabetes mellitus [email or web address] Not available 05/18 17:19:34 Medical History Condition Response Allergies (Food, seasonal, environmental ) Y Other N Drug/Latex Allergies/Reactions N Breast Cancer N Blood Transfusion N Dermatologic Disorders N [...] ICD10 Code Diagnosis IMO Codes Diagnosis Note [id number] Brian Caro MD Hall [address] [address] 12/25/2024 13:55:07 12/25/2024 16:06:24 screening 499820903 Z36.82 Z3A.12 4224242120 [id number] Shayna [place] [facility] [address] [place] [address] 12/25/2024 13:58:04 12/25/2024 15:34:20 Gynecologic examination 23935068 Z01.726 5739761 Amenorrhea 27670502 N91. 2 35711 Nausea 725919956 R11.0 70606 [id number] Shayna [place]ison [facility] [address] [place] [address] 01/24/2025 15:22:10 01/24/2025 15:59:02 Gestation period, 16 weeks 82337603 Z3A.16 0193866 946086 YESSY KENT MD [facility] [address] [place] [address] 02/18/2025 13:47:23 02/18/2025 15:09:56 screening for malformation 578206709 Z36.3 Z3A.19 7195299057 [id number] YESSY KENT MD [facility] [address] [place] [address] 02/18/2025 13:47:42 02/19/2025 08:51:35 Asthma 279963890 J45.909 5891244837 - well controlled Gestation period, 19 weeks 75470280 Z3A.19 5074274 - continue PNV [id number] YESSY KENT MD [facility] [address] [place] [address] 03/19/2025 17:09:54 03/19/2025 17:26:10 Second trimester 63709412 Z34.02 86780705 [id number] YESSY KENT MD [facility] [address] [address] 04/18/2025 11:56:56 04/18/2025 12:41:40 Third trimester 69775306 Z34.03 64907270 - continue PNV- GCT and labs drawn today [id number] MD Erickson Rosales [address] [address] 04/30/2025 16:51:14 05/01/2025 09:05:35 Third trimester 42706968 Z34.03 82916283 [id number] MD Erickson Rosales [address],[place] [address] 05/15/2025 15:29:36 05/15/2025 16:23:43 Observational assessment 642134566 Z03.74 Z3A.32 8922157 [id number] Brian Caro MD Hall [address],[place] [address] 05/15/2025 15:29:46 05/15/2025 16:50:15 Third trimester 70301432 Z34.03 18345013 [id number] MD Erickson LUNDY [address],[place] [address] 05/30/2025 14:18:37 05/30/2025 16:00:35 Body mass index 30+ - obesity 925262853 E66.9 9431907 Asthma 079514895 J45.90 9 0809809439 - well controlled Gestation period, 34 weeks 14081509 Z3A.34 1330646 - continue PNV 129851 MD Erickson LUNDY [address],[place] [address] 06/10/2025 17:18:53 06/11/2025 08:25:12 Maternal obesity complicating , childbirth and the puerperium, antepartum 8558140898 07 O99.210 Z03.74 Z3A.35 9369639769 [id number] YESSY KENT MD Hall [address],[place] [address] 06/10/2025 17:19:25 06/11/2025 08:24:29 Gestation period, 36 weeks 88468838 Z3A.36 4505091 Body mass index 30+ - obesity 145657920 E66.9 5515826 161980 YESSY KENT MD [facility] [address],[place] [address] 06/18/2025 12:57:50 06/18/2025 14:06:19 Third trimester 58062871 Z34.03 10752161 - continue PNV 536659 YESSY KENT MD Hall [address],[place] [address] 06/23/2025 14:08:30 06/23/2025 14:41:57 Body mass index 30+ - obesity 084381509 E66.9 9140325 Gestation period, 37 weeks 93815590 Z3A.37 8764372 - continue PNV Health Concerns Section Related Observation LastModified by Organization Detai ls LastModified Time None Recorded Concern Status LastModified by Organization Details LastModified Time None Recorded Advance Directives Directive N: Payers Insurance Date Sequence Insurance Name Policy Number Policy Mejia Covered Member ID Mejia Member ID Guarantor Name 07/01/2025 1 [facility] (MEDICAID REPLACEMENT - HMO) Anusha Mohan [id number] Anusha Mohan Notes Date Note Type Note Provider Name and Address Organization Details Recorded Time 05/30/2025 text/html Generic HPI TemplateReported by Patient YESSY KENT MD [address], [place], [address], [facility] 05/30/2025 15:59:44 06/10/2025 text/html Generic HPI TemplateReported by Patient YESSY KENT MD [address], [place], [address], [facility] 06/10/2025 18:13:59 06/18/2025 text/html Generic HPI TemplateReported by Patient YESSY KENT MD [address], [place], [address], [place] [facility] 06/18/2025 14:04:42 06/23/2025 text/html Generic HPI TemplateReported by Patient YESSY KENT MD [address], [place], [address], [place] [facility] 06/23/2025 14:40:58 OBGyn Episode Ob Episode Information Episode Created Date Number of Fetuses Patient Bloodtype Patient rh Status Prepregnancy Weight lbs Domestic Partner Domestic Partner Phone Father Name Special Education Superintendent Status 01/25/20 25 1 O Positive 187 OPEN Fetus Data First Name Last Name Admitted to NICU Weight (g) Sex Living Outcome Pediatric Complications Fetus ID Race Codes Race Delivery Type [id number] Problems Problem Notes first - bASA daily Problem Name Start Date End Date Resolution Snomed Code Not e Asthma 01/24/2025 958723988 Body mass index 30+ - obesity 04/30/2025 950742741 Starting BMI of around 32, 36 in [...] Type Weight in lbs Pre/Post Dialysis Refused 185.858074136539 BP Diastolic BP Location Tested BP Systolic [...] Weight in lbs Pre/Post Dialysis Refused Weight 188.353423819903 BP Diastolic BP Location Tested BP Systolic [...] Weight in lbs Pre/Post Dialysis Refused Weight 195.525698729160 BP Diastolic BP Location Tested BP Systolic [...] Weight in lbs Pre/Post Dialysis Refused Weight 203.703949008542 BP Diastolic BP Location Tested BP Systolic [...] Type Weight in lbs Pre/Post Dialysis Refused 204.400472987623 BP Diastolic BP Location Tested BP Systolic [...] Type Weight in lbs Pre/Post Dialysis Refused 209.184171528897 BP Diastolic BP Location Tested BP Systolic [...] Weight in lbs Pre/Post Dialysis Refused Weight 211.129361177776 BP Diastolic BP Location Tested BP Systolic BP Type 63 L arm 113 sitting Fetus Heart Rate Present A 145 Fetus Movement A Yes Comments Was seen at [place] for pre term contractions, started on Procardia [...] Weight in lbs Pre/Post Dialysis Refused Weight 215.933881729509 BP Diastolic BP Location Tested BP Systolic [...] Weight in lbs Pre/Post Dialysis Refused Weight 215.509878404010 BP Diastolic BP Location Tested BP Systolic [...] Weight in lbs Pre/Post Dialysis Refused Weight 220.142671969478 BP Diastolic BP Location Tested BP Systolic [...]
--- OUTSIDE RECORDS SUMMARY | 2025-07-02 17:06 | XMS_ITS | Encounter Summary ---
Author Organization [facility] Address 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
--- OUTSIDE RECORDS SUMMARY | 2025-07-02 17:06 | XMS_ITS | Encounter Summary ---
Author Organization [facility] Address 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
--- OUTSIDE RECORDS SUMMARY | 2025-07-02 17:06 | XMS_ITS | Clinical Summary ---
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
--- NOTE | 2025-07-04 12:37 | PM.OBTRLD ---
OB - Triage/Final Diagnosis Visit Information Comments/Additional reasons for admission: I have assessed the risk for this patient, Anusha Mohan, and determined that she would benefit from observation care. Final Diagnosis (1) Irregular contractions: Code(s): O47.9 - False labor, unspecified Status: Acute
== END 2025-07-02 14:35 | disposition home or self-care (01) ==
PROVIDERS: Admitting Provider Obstetrics & Gynecology; PCP Internal Medicine Gastroenterology; Visit Provider Obstetrics & Gynecology
DX: O47.1 False labor at or after 37 completed weeks of gestation (principal); Z3A.39 39 weeks gestation of pregnancy
CPT/HCPCS: G0378; G0379

== ENCOUNTER 2025-07-13 16:04 | Inpatient (IN) | payer OTHER, SELFPAY ==
[2025-07-13] VITALS (17 sets, daily range): BP systolic 113–167; BP diastolic 56–109; PULSE 82–106; TEMP 36.4–36.8; BMI 39.4
[2025-07-13 16:44] LABS: Hematocrit 36.6 % (37.0-47.0); Hemoglobin 12.6 g/dL (12.0-15.0); Immature Granulocyte Percent A 0.7 % (0-0.5); Lymphocytes Absolute Auto 2.05 K/mm3 (0.9-3.2); Mean Corpuscular HGB Conc 34.4 g/dl (32-36); Mean Corpuscular Hemoglobin 27.8 pg (26-34); Mean Corpuscular Volume 80.8 fl (80-100); Nucleated Red Blood Cells Absolute Auto 0.000 K/mm3 (0.0-0.012); Nucleated Red Blood Cells Perc 0.0 % (0.0-0.2); Platelet Count Result 263 k/mm3 (150-375); Red Blood Count 4.53 M/mm3 (4.2-5.4); White Blood Count 10.6 K/mm3 (4.5-10.0)
--- NOTE | 2025-07-13 16:45 | P.PNAN_ITS ---
Anes - Eval Pre Procedure Procedure: Labor epidural Date/Time: 07/13/25 16:45 Surgeon: [email or web address] Preop Diagnosis: pain during labor Pre Op Diagnosis: IOL Patient Data Age: 25 Gender: F Height: Weight: Allergies Allergy/AdvReac Type Severity Reaction Status Date / Time No Known Allergies Allergy Verified 07/02/25 14:30 Home Medications ?Medication ?Instructions ?Recorded ?Confirmed ?Type albuterol 90 mcg/actuation aerosol 90 mcg inhalation . q4 hr PRN 05/22/25 07/02/25 History inhaler shortness of breath or wheez ing aspirin 81 mg chewable tablet 81 mg PO DAILY 05/22/25 07/02/25 History fluticasone propionate 110 1 inh inhalation DAILY 01/0807/02/25 History mcg/actuation HFA aerosol inhaler montelukast 10 mg tablet 10 mg PO DAILY 05/22/2506/16 History ondansetron 4 mg disintegrating 4 mg PO Q8H PRN nausea and vomiting 05/22/25 07/02/25 History tablet vit no.95-ferrous 1 tablet PO DAILY 05/22/25 07/02/25 History fumarate 28 mg-folic acid 800 mcg tablet () Laboratory Tests 07/13/25 07/13/25 16:12 16:33 WBC Pending RBC Pending Hgb Pending Hct Pending MCV Pending MCH Pending MCHC Pending RDW Pending Plt Count Pending MPV Pending Immature Gran % (Auto) Pending Neut % (Auto) Pending Lymph % (Auto) Pending Deuel % (Auto) Pending Eos % (Auto) Pending Baso % (Auto) Pending Lymph # (Auto) Pending Deuel # (Auto) Pending Eos # (Auto) Pending Baso # (Auto) Pending Abs Immat Gran (auto) Pending Absolute Neuts (auto) Pending Absolute Nucleated RBC Pending Nucleated RBC % Pending Blood Type Pending Antibody Screen Pending Patient hx anesthesia problems: none Family hx anesthesia problems: none Results Review: All pre-operative results and documents have been reviewed as part of the pre- operative evaluation. [facility] Past Medical History Medical History (Updated 07/13/25 @ 16:46 by Marlin Gupta CRNA) Asthma No significant past medical history Surgical History Surgical History No significant past surgical history Social History Social History Smoking status: Former smoker Alcohol intake: former Substance use: never Substance use type: marijuana Lack of Transportation: No Lack of Food: Never True Current Housing: I Have Housing Concerned About Future Housing: No Difficulty Paying Gas/Electric Bills: No Difficulty Paying for Meds: No Currently Unemployed: No Education: High School Diploma/GED Difficulty w/ Childcare or Family Care: No Spiritual care concerns: No Exam Day of Procedure 07/13/25 16:45
--- NOTE | 2025-07-13 16:57 | LDADM ---
This patient, Anusha Mohan, was admitted to Labor/Delivery/Recovery 104 on 07/13/25 at 16:04. Plans for labor, pain management and were discussed with patient. Patient/family oriented to hospital policies and general routines including ID bracelet, bed and alarms, visiting hours, pain management, procedures, bathroom and other care routines, personal items, smoking policy, room service/diet and guest tray routines, infant security routines, and visiting hours. Patient/Family are encouraged to report perceived risks to care and to ask questions if they do not understand what they are told or what they should do. See OBIX for further documentation.
[2025-07-13 17:33] LABS: Syphilis IgG/IgM Antibody Non-Reactive (Nonreactive)
[2025-07-13] MEDS: LACTATED RINGERS 1,000 ML 125 ML IV CONT (23:09)
[2025-07-14] VITALS (60 sets, daily range): BP systolic 103–150; BP diastolic 50–122; PULSE 74–235; RESP 10–18; TEMP 36.6–37.4; O2SAT 96–100
--- NOTE | 2025-07-14 00:01 | PCRCNOTE ---
Patients bid inhaler to be given by RN. RCS aware and will follow up if/when needed.
--- NOTE | 2025-07-14 04:30 | WPDOBADMIT ---
Obstetrics - Admit Note Admission Note: record reviewed. No pertinent additions to the history and/or any subsequent changes in the physical findings that are not consistent with the expected course of the were found. Patient admitted for EIL. uncomplicated. S/p cytotec x2. SROM of clear fluid, then meconium stained amniotic fluid. Additions to the history and/or subsequent changes in the physical findings follow. None.
--- NOTE | 2025-07-14 04:30 | PM.OBPRVD ---
OB - Vaginal Delivery Note Procedure Delivery date: 07/14/25 Events: Elective Induction of Labor Induction method: Per Misoprostol Protocol Delivery monitor: External FHT and External Uterine Route of delivery: Episiotomy description: None Laceration Description: None Specimen: No Quantitative Blood Loss (ml): 100 Anesthesia type: Epidural Disposition: Floor Complications: No immediate complications Narrative: See H&P and notes for details on patient's admission and labor. She progressed to complete cervical dilation and at the appropriate time began pushing. With adequate expulsive efforts by the mother, the baby's head was delivered without difficulty. Nuchal cord was not present. The baby's right shoulder was anterior and delivered under the pubic symphysis without difficulty. The posterior shoulder and the rest of the baby delivered without difficulty. The umbilical cord was doubly clamped and cut after 60 seconds of delayed cord clamping. Care of the was then assumed by the nursing staff. Baby Date of : 07/14/25 Gestational Age by Date: 40 gender: Female presentation: vertex position: Left Occiput Anterior Placenta delivery description: Expressed Cord Vessel Description: 3 Vessels and Delayed Cord Clamping
[2025-07-14] MEDS: OXYTOCIN 30 UNITS/NS 500 ML 30 UNITS/500 ML BAG 125 UNITS IV CONT (04:50)
[2025-07-14] MEDS: LACTATED RINGERS 1,000 ML 125 ML IV CONT (05:15)
[2025-07-14] MEDS: WITCH HAZEL 40 PADS 1 PAD TOPICAL (06:36)
[2025-07-14] MEDS: BENZOCAINE 20% AER SPR (*SP) 56 GM CAN 1 SPRAY TOPICAL (06:37)
--- NOTE | 2025-07-14 07:15 | PC.NURSE ---
Patient transferred to post room #283 per wheelchair from labor and delivery. Support person present. Oriented to unit, room, information board, rooming in, admission packet and security measures. Patient verbalizes understanding.
[2025-07-14] MEDS: FLUTICASONE PROP 110 MCG INHALER 12 GM (*SP) 2 PUFF INHALATION ×2 (11:31→20:00)
[2025-07-14] MEDS: MONTELUKAST SODIUM 10 MG TABLET PO (11:31)
--- NOTE | 2025-07-14 12:00 | PC.NURSE ---
Primary RN, Karthikeyan Lam, IBCLC, consulted with patient to assess needs related to . Discussed with mother her successes, concerns and any questions she has. Reviewed working with the infant, supporting breast, protecting her nipples with an optimal deep latch, good positioning, and good hand washing. Encouraged understanding the benefits of skin to skin, responding to feeding cues, frequencies of feeding 8-12 times in 24 hours (approximately 2-3 hours), duration of feedings, milk production, intake/output feeding sheet and signs of adequate intake encouraging swallowing at the breast. Reviewed positioning and alignment, supporting breast, off-centered (asymmetrical latch) and leading with the chin with big, open, wide gape. latched optimally to the [right] breast in [cross cradle] position. Education given to the mother of how to visualize the suckling (with good rocking jaw motion) swallows (dropping of the lower jaw) and how to listen for drinking at the breast (the ka sound). The was [able] to maintain latch without discomfort to mother. Nipple care reviewed with optimal latch, good positioning and using clean hands when touching her breast. Resources used to facilitate learning were used from the [visual handouts/ tool/mom and baby guide]. Mother voiced understanding of the education shared, to call for assistance if the does not latch or if there is discomfort with .
--- NOTE | 2025-07-14 14:31 | WPDANLDPN2 ---
Anes-Prog Note L&D Date/Time: 07/14/25 14:31 Comfortable throughout: labor and delivery Neuraxial method: epidural Epidural/Spinal procedure site: clean & non-tender Neuro status: Neuro function grossly intact. Cardiovascular status: normal Respiratory status: normal Airway patency: baseline Mental status: baseline Post-Op hydration status: normal Vital Signs: Last Vital Signs Temp 36.8 C 07/14/25 11:26 Pulse 94 07/14/25 11:26 Resp 10 L 07/14/25 11:26 BP 111/63 07/14/25 11:26 Pulse Ox 97 07/14/25 11:26 O2 Del Method Room Air 07/13/25 16:57 Pain score (VAS): 1 I/O: Intake & Output 07/13/25 07/14/25 07/14/25 23:59 07:59 15:59 Intake Total 762.5 740 Output Total 135 Balance 627.5 740 Post-procedural complaints: none Patient feedback: Patient satisfied with anesthetic care.
[2025-07-14] MEDS: ACETAMINOPHEN 325 MG TABLET 650 MG PO (20:08)
[2025-07-15 04:58] LABS: Hematocrit 31.7 % (37.0-47.0); Hemoglobin 10.5 g/dL (12.0-15.0)
[2025-07-15 07:35] VITALS: BP 119/78; PULSE 82; RESP 16; TEMP 36.8; O2SAT 98
[2025-07-15] MEDS: ACETAMINOPHEN 325 MG TABLET 650 MG PO (08:01)
[2025-07-15] MEDS: MONTELUKAST SODIUM 10 MG TABLET PO (08:01)
[2025-07-15] MEDS: FLUTICASONE PROP 110 MCG INHALER 12 GM (*SP) 2 PUFF INHALATION (08:01)
[2025-07-15] MEDS: MULTIVIT/MIN/PREN/FOL AC/IRON TABLET 1 TAB PO (08:02)
--- NOTE | 2025-07-15 10:38 | P.PNOB_ITS ---
OB - PN: Subj Subjective Date/time seen: 07/15/25 10:38 Interval history: PPD#1 s/p Doing well, pain controlled Voiding without issue Tolerating general diet OB - PN: Obj Data Labs 07/15/25 04:01 Labs: Laboratory Results - last 24 hr 07/15/25 04:01 Hgb 10.5 L Hct 31.7 L OB - PN A/P Assessment and Plan (1) (spontaneous vaginal delivery): Code(s): O80 - Encounter for full-term uncomplicated delivery Status: Acute Plan day: 1 Plan: routine care Time Spent With Patient Time: Total time spent is greater than 50% in coordination of care (as documented) at patient's floor/unit and/or counseling patient: Review of Systems 2 Review of Systems: All systems reviewed & are unremarkable except as noted in HPI and below Exam 2 Const: General: comfortable and no acute distress O rientation/consciousness: patient oriented x3 Resp: Effort & Inspection: normal respiratory effort
--- NOTE | 2025-07-15 12:45 | PC.NURSE ---
Consulted with patient to assess needs related to . Discussed with mother her successes, concerns and any questions she has. Per mother her left nipple is sore, she was given hydrogel pads by her primary RN. We reviewed working with the , supporting breast, protecting her nipples with an optimal deep latch, good positioning, and good hand washing. Encouraged mother to try another position on her left side, possibly football position. Encouraged understanding the benefits of skin to skin, responding to feeding cues, frequencies of feeding 8-12 times in 24 hours (approximately 2-3 hours), duration of feedings, milk production, intake/output feeding sheet and signs of adequate intake encouraging swallowing at the breast. Reviewed positioning and alignment, supporting breast, off-centered (asymmetrical latch) and leading with the chin with big, open, wide gape. Infant latched optimally to the [right] breast in [cross cradle] position. Education given to the mother of how to visualize the suckling (with good rocking jaw motion) swallows (dropping of the lower jaw) and how to listen for drinking at the breast (the ka sound). The infant was [able] to maintain latch without discomfort to mother. Nipple care reviewed with optimal latch, good positioning and using clean hands when touching her breast. Resources used to facilitate learning were used from the [visual handouts/ tool/mom and baby guide]. Mother voiced understanding of the education shared, to call for assistance if the infant does not latch or if there is discomfort with . Reported to the Primary RN.
--- NOTE | 2025-07-15 13:44 | PC.NURSE ---
1340. Called to assist with latching during feeding. Mom requested help with latching in the football position. Min assistance was used to latch optimally in the football position while maintaining proper alignment. Mom reported no pain and latched looked optimal. Mom encouraged to call for help or questions regarding feedings and latching. Reported to primary RN.
[2025-07-15 19:23] VITALS: BP 119/82; PULSE 82; RESP 17; TEMP 36.8; O2SAT 98
[2025-07-16] MEDS: IBUPROFEN 600 MG TABLET PO (05:42)
[2025-07-16 07:30] VITALS: BP 125/87; PULSE 80; RESP 12; TEMP 36.7; O2SAT 98
[2025-07-16] MEDS: MULTIVIT/MIN/PREN/FOL AC/IRON TABLET 1 TAB PO (08:45)
[2025-07-16] MEDS: MONTELUKAST SODIUM 10 MG TABLET PO (08:45)
--- NOTE | 2025-07-16 08:48 | PC.NURSE ---
Consulted with mother concerning needs and she shared her ability to independently latch infant optimally without pain. Mother is feeding appropriately for growth of infant and understands stimulating to eat if needed. Mother is also supplementing as needed with formula and plans on doing breast and bottle at home, she does have her own Zomee breast pump to use as well. Mother understands that if does not feed at the breast or effectively at the breast then she should use her breast pump, see discharge feeding plan. Mother given handouts on Advice for Common Issues and Pumping Primer. Infant has had appropriate feedings in the last 24 hours meets the outcomes for weight, output, blood sugar and jaundice at this time. Reinforced understanding of milk production, transition of milk, signs of adequate intake, transition of stool, prevention/relief of engorgement, plugged ducts, mastitis, responsive watching for feeding cues, the different methods of stimulating infant to breastfeed 1-3 hours after the start of the last feeding, community resources, and when to call a provider using the resource of the feeding sheet along with the mom and baby guide. Mother voiced understanding of the information shared, is confident to continue effectively her infant at home, when to call for assistance, denies any additional assistance or education at this time. [facility] referral faxed to [place] office. Reported to the Primary RN.
[2025-07-16] MEDS: FLUTICASONE PROP 110 MCG INHALER 12 GM (*SP) 2 PUFF INHALATION (09:03)
--- NOTE | 2025-07-16 10:11 | P.PNOB_ITS ---
OB - PN: Subj Subjective Date/time seen: 07/16/25 10:11 Interval history: PPD#1 s/p Doing well, pain controlled Voiding without issue Tolerating general diet Patient comments: no complaints, pain well controlled and tolerating diet OB - PN: Obj Data Labs 07/15/25 04:01 OB - PN A/P Plan day: 2 Plan: routine care and discharge home Time Spent With Patient Time: Total time spent is greater than 50% in coordination of care (as documented) at patient's floor/unit and/or counseling patient: Exam 2 Const: General: comfortable and no acute distress Resp: Effort & Inspection: normal respiratory effort Auscultation: no rales, no rhonchi and no wheezes Cardio: Rate: regular rate Heart sounds: no click, no murmurs and no rubs GI: GI Palp: Yes Soft to palpation and No Tenderness to palpation present (GI) Auscultation: normal bowel sounds Extrem: General: normal to inspection, no pedal edema and no calf tenderness
--- NOTE | 2025-07-16 10:12 | P.DS_ITS ---
DS: Admitting Diagnosis Discharge Date 07/16/2025 Admitting Diagnosis term DS: Discharge Diagnosis Discharge Diagnosis (1) Term delivered: Code(s): O80 - Encounter for full-term uncomplicated delivery Status: Acute OB - DS: Summary OB Procedures : None OB Procedures Intrapartum: Spontaneous Vag Delivery OB Procedures: : None Peripartum Data Laceration Description: None Episiotomy description: None Time Spent with Patient Time attestation: Total time spent providing and/or coordinating discharge services: Discharge Plan Discharge Discharging Clinician: Brian Caro Patient Disposition: Home Activity: pelvic rest Diet: regular Patient Instructions: Antibiotic Form Patient Language: Azeri Stand Alone Forms: General Discharge Information Follow-up/Referrals: Brian Caro MD [Physician, [employer]] Discharge Medications: Continued fluticasone propionate 110 mcg/actuation HFA aerosol inhaler 1 inh INHALATION DAILY montelukast 10 mg tablet 10 mg PO DAILY ondansetron 4 mg tablet,disintegrating 4 mg PO Q8H PRN (Reason: nausea and vomiting) PNV no.95-ferrous fumarate-FA [] 28 mg iron- 800 mcg tablet 1 tablet PO DAILY albuterol 90 mcg/actuation aerosol 90 mcg inhalation .q4 hr PRN (Reason: shortness of breath or wheezing) aspirin 81 mg tablet,chewable 81 mg PO DAILY Date of admission: 07/13/25 16:04 Primary Care Provider: MichaelLuis Armando Admitting Provider: Karthik Butler Attending physician on admission: Karthik Butler Condition: Stable
[2025-07-16] MEDS: MEASLES,MUMPS,RUBELLA VACCINE 0.5 ML VIAL SUB-Q (13:27)
[2025-07-18 13:43] VITALS: BP 128/77; PULSE 88; RESP 18; TEMP 36.6; O2SAT 98
== END 2025-07-16 14:27 | disposition home or self-care (01) | DRG 560 ==
LOC: ANHOB2 07-16 13:10 → ANHLDR 07-18 08:47 → ANHOB2 07-18 08:47
PROVIDERS: Admitting Provider Obstetrics & Gynecology; PCP Internal Medicine Gastroenterology; Visit Provider Obstetrics & Gynecology
DX: O77.0 Labor and delivery complicated by meconium in amniotic fluid (principal); Z37.0 Single live birth; Z3A.40 40 weeks gestation of pregnancy; Z23 Encounter for immunization
CPT/HCPCS: 36415; 85014; 85018; 85025; 86593; 86850; 86900; 86901; 90710; A9270; J2590; J2795; J7120